=== PATIENT | female | born 1950 ===

== ENCOUNTER 2017-06-18 01:46 | Inpatient (IN) | payer MEDICARE, MEDICAID ==
[2017-06-18 02:34] LABS: BASO # 0.1 K/uL (0.0-0.2); EOS # 0.1 K/uL (0.0-0.7); HEMATOCRIT 26.3 % (34.0-47.0); LYMPH # 1.9 K/uL (1.0-4.3); MEAN CELL VOLUME 84.4 fL (81.0-99.0); MEAN CORPUSCULAR HEMOGLOBIN 26.9 pg (27.0-31.0); MEAN CORPUSCULAR HGB CONC 31.9 g/dL (33.0-37.0); MONO # 0.7 K/uL (0.0-0.8); RED CELL DISTRIBUTION WIDTH 16.2 % (11.5-14.5); WHITE BLOOD COUNT 9.6 K/uL (4.8-10.8)
[2017-06-18 02:36] LABS: BASO % 0.7 % (0.0-2.0); EOS % 0.8 % (0.0-4.0); LYMPH % 19.5 % (20.0-40.0); MEAN PLATELET VOLUME 9.4 fL (7.2-11.7); MONO % 7.4 % (0.0-10.0)
--- NOTE | 2017-06-18 02:37 | C.PDOC ---
History Of Present Illness Patient presents to the ED with complaints of sudden onset of shortness of breath beginning while watching TV prior to arrival. She is speaking in complete sentences and denies fever, chills, nausea, vomiting, chest pain, or palpitations. Time Seen by Provider: 06/18/17 02:19 Chief Complaint (Nursing): Shortness Of Breath History Per: Patient History/Exam Limitations: no limitations Onset/Duration Of Symptoms: Hrs Current Symptoms Are (Timing): Still Present Initiating Event: Other (sitting, watching television ) Quality: Dull Exacerbating Factor(s): Exertion, Laying Flat Current Respiratory Medications: None Severity: Moderate Pain Scale Rating Of: 4 Associated Symptoms: denies: Fever, Chills, Chest Pain, Bloody Cough, Productive Cough Reports Recently: Seen In ED, Treated By A Physician, Hospitalized Recent travel outside of the [place]: No Additional History Per: Family Past Medical History Reviewed: Historical Data, Nursing Documentation, Vital Signs Vital Signs: Last Vital Signs Temp 98.3 F 06/18/17 02:01 Pulse 84 06/18/17 04:00 Resp 24 06/18/17 04:00 BP 140/70 06/18/17 04:00 Pulse Ox 97 06/18/17 04:00 - Medical History PMH: Asthma, CHF, HTN Surgical History: Cholecystectomy, Coronary Stent (3) Family History: States: Unknown Family Hx - Social History Hx Alcohol Use: No Hx Substance Use: No - Immunization History Hx Tetanus Toxoid Vaccination: No Hx Influenza Vaccination: No Hx Pneumococcal Vaccination: No Review Of Systems Constitutional: Negative for: Fever, Chills Eyes: Negative for: Redness ENT: Negative for: Throat Pain Cardiovascular: Negative for: Chest Pain, Palpitations Respiratory: Positive for: Shortness of Breath. Negative for: Cough Gastrointestinal: Negative for: Nausea, Vomiting Genitourinary: Negative for: Dysuria Musculoskeletal: Negative for: Back Pain Skin: Negative for: Rash Neurological: Negative for: Weakness Psych: Positive for: Anxiety Physical Exam - Physical Exam Appears: Non-toxic, No Acute Distress Skin: Warm, Dry Head: Atraumatic Eye(s): bilateral: Normal Inspection Oral Mucosa: Moist Neck: Trachea Midline, Supple Chest: Symmetrical, No Deformity Cardiovascular: Rhythm Regular, Other (Patient is wearing a life vest ) Respiratory: Rales (at bilateral bases ), No Rhonchi, No Wheezing Gastrointestinal/Abdominal: Soft, No Tenderness, Distention, No Guarding, No Rebound, Other (abdomen is obese ) Back: No CVA Tenderness Extremity: No Tenderness, Pedal Edema (trace pedal edema ), No Calf Tenderness, Capillary Refill (good capillary refill, less than two seconds ) Extremity: Bilateral: Atraumatic, Normal Color And Temperature Pulses: Left Dorsalis Pedis: Normal, Right Dorsalis Pedis: Normal Neurological/Psych: Oriented x3, Normal Speech, Normal Cognition Gait: Steady ED Course And Treatment - Laboratory Results Result Diagrams: 06/18/17 02:30 06/18/17 02:30 ECG: Interpreted By Me, Viewed By Me ECG Rhythm: Sinus Rhythm (84), L BBB, Nonspecific Changes O2 Sat by Pulse Oximetry: 97 (RA ) Pulse Ox Interpretation: Normal - Radiology CXR: Interpreted by Me, Viewed By Me CXR Interpretation: Yes: Cardiomegaly, Other (chf, life vest on). No: Infiltrates, Fracture Progress Note: EKG, CXR, and labs were ordered. Disposition Discussed With Dr.: Son Sadler Comment: acceptd the pt on his service and took over the care at 4:43 AM Doctor Will See Patient In The: Hospital Counseled Patient/Family Regarding: Studies Performed, Diagnosis - Disposition Disposition: HOSPITALIZED Disposition Time: 04:44 Condition: GUARDED Forms: [facility] ([place]) - POA Present On Arrival: Poor Glycemic Control - Clinical Impression Clinical Impression: Dyspnea, CHF (congestive heart failure) - Scribe Statement The provider has reviewed the documentation as recorded by the Scribe Sulema Jones All medical record entries made by the Scribe were at my direction and personally dictated by me. I have reviewed the chart and agree that the record accurately reflects my personal performance of the history, physical exam, medical decision making, and the department course for this patient. I have also personally directed, reviewed, and agree with the discharge instructions and disposition. Decision To Admit - Pt Status Changed To: Hospital Disposition Of: Inpatient - Admit Certification Admit to Inpatient:: After my assessment, the patient will require hospitalization for at least two midnights. This is because of the severity of symptoms shown, intensity of services needed, and/or the medical risk in this patient being treated as an outpatient. - InPatient: Physician Admission Certification: I certify that this patient requires 2 or more midnights of care for the following reason:: After my assessment, the patient will require hospitalization for at least two midnights. This is because of the severity of symptoms shown, intensity of services needed, and/or the medical risk in this patient being treated as an outpatient. - . Bed Request Type: Telemetry Admitting Physician: Son Sadler Patient Diagnosis: Dyspnea, CHF (congestive heart failure)
[2017-06-18 02:43] LABS: CHLORIDE 106 mmol/L (98-107); POTASSIUM 4.2 mmol/L (3.6-5.2); SODIUM 140 mmol/L (132-148)
[2017-06-18 02:44] LABS: INR 1.3
[2017-06-18 02:45] LABS: BILIRUBIN,TOTAL 0.7 mg/dL (0.2-1.3); CARBON DIOXIDE 23 mmol/L (22-30); GFR AFRICAN-AMERICAN > 60
[2017-06-18 02:46] LABS: ALB/GLOB RATIO 0.9 (1.0-2.1); ALKALINE PHOSPHATASE 75 U/L (38-126); ALT/SGPT 30 U/L (9-52); AST/SGOT 26 U/L (14-36); BLOOD UREA NITROGEN 17 mg/dL (7-17); CALCIUM 9.3 mg/dl (8.6-10.4); GLUCOSE,RANDOM 131 mg/dL (65-105); TOTAL PROTEIN 8.1 g/dL (6.3-8.3)
[2017-06-18 02:56] LABS: ABG ALLEN TEST POS; DRAW SITE R RAD
[2017-06-18] MEDS: Albuterol-Ipratrop 3 mg / 0.5 (3 ml) UD INH SCH ×3 (09:00→19:59)
[2017-06-18] MEDS: (Novolog) Insulin Aspart, Recombinant 100 u/ml 10 ml vial SC SCH ×4 (09:31→21:40)
[2017-06-18] MEDS ORDERED: Pantoprazole 40 mg EC Tab PO SCH (10:00)
[2017-06-18 11:41] LABS: BASO # 0.1 K/uL (0.0-0.2); BASO % 0.7 % (0.0-2.0); EOS # 0.1 K/uL (0.0-0.7); EOS % 0.7 % (0.0-4.0); HEMATOCRIT 24.2 % (34.0-47.0); LYMPH # 2.3 K/uL (1.0-4.3); LYMPH % 24.9 % (20.0-40.0); MEAN CELL VOLUME 83.9 fL (81.0-99.0); MEAN CORPUSCULAR HEMOGLOBIN 27.2 pg (27.0-31.0); MEAN CORPUSCULAR HGB CONC 32.4 g/dL (33.0-37.0); MEAN PLATELET VOLUME 9.9 fL (7.2-11.7); MONO # 0.6 K/uL (0.0-0.8); RED CELL DISTRIBUTION WIDTH 16.4 % (11.5-14.5); WHITE BLOOD COUNT 9.1 K/uL (4.8-10.8)
[2017-06-18 11:49] LABS: CHLORIDE 104 mmol/L (98-107); POTASSIUM 3.7 mmol/L (3.6-5.2); SODIUM 141 mmol/L (132-148)
[2017-06-18 11:51] LABS: ALB/GLOB RATIO 0.8 (1.0-2.1); ALKALINE PHOSPHATASE 68 U/L (38-126); AST/SGOT 25 U/L (14-36); BILIRUBIN,TOTAL 0.8 mg/dL (0.2-1.3); BLOOD UREA NITROGEN 14 mg/dL (7-17); CARBON DIOXIDE 27 mmol/L (22-30); GFR AFRICAN-AMERICAN > 60; TOTAL PROTEIN 8.4 g/dL (6.3-8.3)
[2017-06-18 11:52] LABS: ALT/SGPT 31 U/L (9-52); CALCIUM 9.5 mg/dl (8.6-10.4); GLUCOSE,RANDOM 158 mg/dL (65-105)
--- NOTE | 2017-06-18 13:02 | RAD ---
PROCEDURE: CHEST RADIOGRAPH, 1 VIEW HISTORY: SOB COMPARISON: None available. FINDINGS: LUNGS: Moderate pulmonary vascular congestion. PLEURA: Suspicious for small right pleural effusion CARDIOVASCULAR: The cardiac silhouette is enlarged OSSEOUS STRUCTURES: No significant abnormalities. VISUALIZED UPPER ABDOMEN: Normal. OTHER FINDINGS: None. IMPRESSION: Suspicious for CHF and moderate pulmonary vascular congestion.
--- NOTE | 2017-06-18 14:02 | CP.PCM.CON ---
<Timothy Bernal - Last Filed: 06/18/17 14:19> History of Present Illness - History of Present Illness History of Present Illness: PGY4 Initial GI Consult Beryl Yañez is a 66F w/ hx of CAD s/p CABG? and stents, HTN, CHF, sick sinus? who presented to the ER with complaints of SOB. She states that the SOB is acute on chronic. She notes that she used 4 pillows to go to sleep and cannot lay supine. She denies any chest pain and abd pain. She states that she suddenly became SOB the day prior while watching TV which bought her to the ER for further eval. Pt states that she noticed black stool 3 weeks ago. She denies any melena, hematemesis, coffee-ground emesis. She denies any NSAID or anticoag use. She does note daily 8 mg of aspirin. Her hgb was found to be 8.4 which is a decline from her baseline of 12. She denies any abd pain. She is currently being treated for acute decompensated CHF with IV lasix and cardiology has been consulted. PMH: Asthma, CHF, HTN Surgical History: Cholecystectomy, Coronary Stent (3) Family History: States: Unknown Family Hx Endoscopy Hx: as per pt, EGD and colonoscopy was done 7 years ago and no sig findings ROS: 12 point ROS conducted, neg other than above Past Patient History - Infectious Disease Hx of Infectious Diseases: None - Past Medical History & Family History Past Medical History?: Yes - Past Social History Smoking Status: Former Smoker - CARDIAC Hx Congestive Heart Failure: Yes Hx Hypertension: Yes - PULMONARY Hx Asthma: Yes - ENDOCRINE/METABOLIC Hx Diabetes Mellitus Type 1: Yes - INTEGUMENTARY Hx Dermatological Problems: No - MUSCULOSKELETAL/RHEUMATOLOGICAL Hx Falls: No - PSYCHIATRIC Hx Substance Use: No - SURGICAL HISTORY Hx Cholecystectomy: Yes Hx Coronary Stent: Yes (3) - ANESTHESIA Hx Anesthesia: Yes Hx Anesthesia Reactions: No Meds Allergies/Adverse Reactions: Allergies Allergy/AdvReac Type Severity Reaction Status Date / Time No Known Allergies Allergy Verified 06/18/17 02:07 - Medications Medications: Current Medications Albuterol/Ipratropium (Duoneb 3 Mg/0.5 Mg (3 Ml) Ud) 3 ml INH RQ6 [facility] Last Admin: 06/18/17 09:00 Dose: 3 ml Furosemide (Lasix) 20 mg IVP Q12 [facility] Last Admin: 06/18/17 12:12 Dose: 20 mg Insulin Aspart (Novolog) 0 unit SC ACHS [facility] PRN Reason: Protocol Last Admin: 06/18/17 13:26 Dose: 1 unit Pantoprazole Sodium (Protonix Ec Tab) 40 mg PO DAILY [facility] Last Admin: 06/18/17 12:12 Dose: 40 mg Pneumococcal Polyvalent Vaccine (Pneumovax 23 Vaccine) 0.5 ml IM .ONCE ONE Stop: 06/20/17 14:01 Physical Exam - Constitutional Appears: Well, No Acute Distress - Head Exam Head Exam: ATRAUMATIC, NORMOCEPHALIC - Eye Exam Eye Exam: Normal appearance - ENT Exam ENT Exam: Mucous Membranes Moist - Neck Exam Neck exam: Positive for: Normal Inspection - Respiratory Exam Respiratory Exam: Rhonchi, NORMAL BREATHING PATTERN. absent: Prolonged Expiratory Phase, Rales, Respiratory Distress - Cardiovascular Exam Cardiovascular Exam: REGULAR RHYTHM, +S4, Systolic Murmur - GI/Abdominal Exam GI & Abdominal Exam: Normal Bowel Sounds, Soft. absent: Guarding, Pulsatile Mass, Rebound, Rigid - Neurological Exam Neurological exam: Alert, Oriented x3 - Psychiatric Exam Psychiatric exam: Normal Affect, Normal Mood - Skin Skin Exam: Dry, Intact, Normal Color, Warm Results - Vital Signs Recent Vital Signs: Last Vital Signs Temp 97.9 F 06/18/17 08:21 Pulse 77 06/18/17 08:21 Resp 20 06/18/17 08:21 BP 116/53 L 06/18/17 12:12 Pulse Ox 97 06/18/17 08:21 - Labs Result Diagrams: 06/18/17 11:27 06/18/17 11:27 Labs: Laboratory Results - last 24 hr 06/18/17 06/18/17 06/18/17 02:30 02:30 02:30 WBC 9.6 RBC 3.11 L Hgb 8.4 L Hct 26.3 L MCV 84.4 MCH 26.9 L MCHC 31.9 L RDW 16.2 H Plt Count 160 MPV 9.4 Neut % (Auto) 71.6 Lymph % (Auto) 19.5 L [place] % (Auto) 7.4 Eos % (Auto) 0.8 Baso % (Auto) 0.7 Neut # 6.9 Lymph # 1.9 [place] # 0.7 Eos # 0.1 Baso # 0.1 PT 14.4 H INR 1.3 APTT 31 Puncture Site pCO2 pO2 HCO3 ABG pH ABG Total CO2 ABG O2 Saturation ABG Base Excess Ernie Test ABG Potassium Sodium 140 Chloride 106 Glucose Lactate Liter Flow Potassium 4.2 Carbon Dioxide 23 Anion Gap 15 BUN 17 Creatinine 0.7 Est GFR ( Amer) > 60 Est GFR (Non-Af Amer) > 60 POC Glucose (mg/dL) Random Glucose 131 H Calcium 9.3 Iron Total Bilirubin 0.7 AST 26 ALT 30 Alkaline Phosphatase 75 Total Creatine Kinase CK-MB (Mass) Troponin I < 0.0120 Troponin I, Quant NT-Pro-B Natriuret Pep 1200 H Total Protein 8.1 Albumin 3.9 Globulin 4.2 H Albumin/Globulin Ratio 0.9 L Arterial Blood Potassium 06/18/17 06/18/17 06/18/17 02:30 06:30 11:27 WBC 9.1 RBC 2.88 L Hgb 7.8 L Hct 24.2 L MCV 83.9 MCH 27.2 MCHC 32.4 L RDW 16.4 H Plt Count 153 MPV 9.9 Neut % (Auto) 66.7 Lymph % (Auto) 24.9 [place] % (Auto) 7.0 Eos % (Auto) 0.7 Baso % (Auto) 0.7 Neut # 6.1 Lymph # 2.3 [place] # 0.6 Eos # 0.1 Baso # 0.1 PT INR APTT Puncture Site R rad pCO2 37 pO2 98 HCO3 25.3 ABG pH 7.43 ABG Total CO2 25.7 ABG O2 Saturation 98.8 H ABG Base Excess 0.5 Ernie Test Pos ABG Potassium 4.1 Sodium 140.0 Chloride 113.0 H Glucose 142 H Lactate 1.1 Liter Flow 2.0 Potassium Carbon Dioxide Anion Gap BUN Creatinine Est GFR ( Amer) Est GFR (Non-Af Amer) POC Glucose (mg/dL) 173 H Random Glucose Calcium Iron Total Bilirubin AST ALT Alkaline Phosphatase Total Creatine Kinase CK-MB (Mass) Troponin I Troponin I, Quant NT-Pro-B Natriuret Pep Total Protein Albumin Globulin Albumin/Globulin Ratio Arterial Blood Potassium 4.1 06/18/17 06/18/17 06/18/17 11:27 11:27 13:01 WBC RBC Hgb Hct MCV MCH MCHC RDW Plt Count MPV Neut % (Auto) Lymph % (Auto) [place] % (Auto) Eos % (Auto) Baso % (Auto) Neut # Lymph # [place] # Eos # Baso # PT INR APTT Puncture Site pCO2 pO2 HCO3 ABG pH ABG Total CO2 ABG O2 Saturation ABG Base Excess Ernie Test ABG Potassium Sodium 141 Chloride 104 Glucose Lactate Liter Flow Potassium 3.7 Carbon Dioxide 27 Anion Gap 14 BUN 14 Creatinine 0.5 L Est GFR ( Amer) > 60 Est GFR (Non-Af Amer) > 60 POC Glucose (mg/dL) 151 H Random Glucose 158 H Calcium 9.5 Iron 23 L Total Bilirubin 0.8 AST 25 ALT 31 Alkaline Phosphatase 68 Total Creatine Kinase 62 CK-MB (Mass) 0.71 Troponin I Troponin I, Quant < 0.0120 NT-Pro-B Natriuret Pep Total Protein 8.4 H Albumin 3.8 Globulin 4.6 H Albumin/Globulin Ratio 0.8 L Arterial Blood Potassium Assessment & Plan - Assessment and Plan (Free Text) Assessment: Beryl Yañez is a 66F w/ hx of CAD s/p stents, HL, CHF, and HTN who presents to the ER with SOB. She was found to be in acute decompensated hearst failure and anemia. 1. Normocytic anemia likely 2/2 GI bleed 2. Black Stools likely 2/2 GI bleed Plan: -start protonix 40mg BID -will do an EGD when medically cleared by cardiology -continue to monitor hgb -recommend transfusing PRBC to keep hgb > 8 2/2 CAD and CHF, but caution further fluid overload -will eventually need colonoscopy, as inpt vs oupt will be based on EGD findings -maintain 2 large IV bore lines -diuresis as per medical team and cardiology -keep NPO after midnight for now, and will decide upon EGD tomorrow -if pt decompensates recommend, recommend ICU eval -hold anticoag and antiplat for now -type and screen D/W Dr. rankin <Albert Rankin - Last Filed: 06/18/17 14:41> Meds - Medications Medications: Current Medications Albuterol/Ipratropium (Duoneb 3 Mg/0.5 Mg (3 Ml) Ud) 3 ml INH RQ6 [facility] Last Admin: 06/18/17 14:00 Dose: 3 ml Furosemide (Lasix) 20 mg IVP Q12 [facility] Last Admin: 06/18/17 12:12 Dose: 20 mg Insulin Aspart (Novolog) 0 unit SC ACHS [facility] PRN Reason: Protocol Last Admin: 06/18/17 13:26 Dose: 1 unit Pantoprazole Sodium (Protonix Inj) 40 mg IVP Q12H [facility] Pneumococcal Polyvalent Vaccine (Pneumovax 23 Vaccine) 0.5 ml IM .ONCE ONE Stop: 06/20/17 14:01 Results - Vital Signs Recent Vital Signs: Last Vital Signs Temp 97.9 F 06/18/17 08:21 Pulse 77 06/18/17 08:21 Resp 20 06/18/17 08:21 BP 116/53 L 06/18/17 12:12 Pulse Ox 97 06/18/17 08:21 - Labs Result Diagrams: 06/18/17 11:27 06/18/17 11:27 Labs: Laboratory Results - last 24 hr 06/18/17 06/18/17 06/18/17 02:30 02:30 02:30 WBC 9.6 RBC 3.11 L Hgb 8.4 L Hct 26.3 L MCV 84.4 MCH 26.9 L MCHC 31.9 L RDW 16.2 H Plt Count 160 MPV 9.4 Neut % (Auto) 71.6 Lymph % (Auto) 19.5 L [place] % (Auto) 7.4 Eos % (Auto) 0.8 Baso % (Auto) 0.7 Neut # 6.9 Lymph # 1.9 [place] # 0.7 Eos # 0.1 Baso # 0.1 PT 14.4 H INR 1.3 APTT 31 Puncture Site pCO2 pO2 HCO3 ABG pH ABG Total CO2 ABG O2 Saturation ABG Base Excess Ernie Test ABG Potassium Sodium 140 Chloride 106 Glucose Lactate Liter Flow Potassium 4.2 Carbon Dioxide 23 Anion Gap 15 BUN 17 Creatinine 0.7 Est GFR ( Amer) > 60 Est GFR (Non-Af Amer) > 60 POC Glucose (mg/dL) Random Glucose 131 H Calcium 9.3 Iron Total Bilirubin 0.7 AST 26 ALT 30 Alkaline Phosphatase 75 Total Creatine Kinase CK-MB (Mass) Troponin I < 0.0120 Troponin I, Quant NT-Pro-B Natriuret Pep 1200 H Total Protein 8.1 Albumin 3.9 Globulin 4.2 H Albumin/Globulin Ratio 0.9 L Arterial Blood Potassium 06/18/17 06/18/17 06/18/17 02:30 06:30 11:27 WBC 9.1 RBC 2.88 L Hgb 7.8 L Hct 24.2 L MCV 83.9 MCH 27.2 MCHC 32.4 L RDW 16.4 H Plt Count 153 MPV 9.9 Neut % (Auto) 66.7 Lymph % (Auto) 24.9 [place] % (Auto) 7.0 Eos % (Auto) 0.7 Baso % (Auto) 0.7 Neut # 6.1 Lymph # 2.3 [place] # 0.6 Eos # 0.1 Baso # 0.1 PT INR APTT Puncture Site R rad pCO2 37 pO2 98 HCO3 25.3 ABG pH 7.43 ABG Total CO2 25.7 ABG O2 Saturation 98.8 H ABG Base Excess 0.5 Ernie Test Pos ABG Potassium 4.1 Sodium 140.0 Chloride 113.0 H Glucose 142 H Lactate 1.1 Liter Flow 2.0 Potassium Carbon Dioxide Anion Gap BUN Creatinine Est GFR ( Amer) Est GFR (Non-Af Amer) POC Glucose (mg/dL) 173 H Random Glucose Calcium Iron Total Bilirubin AST ALT Alkaline Phosphatase Total Creatine Kinase CK-MB (Mass) Troponin I Troponin I, Quant NT-Pro-B Natriuret Pep Total Protein Albumin Globulin Albumin/Globulin Ratio Arterial Blood Potassium 4.1 06/18/17 06/18/17 06/18/17 11:27 11:27 13:01 WBC RBC Hgb Hct MCV MCH MCHC RDW Plt Count MPV Neut % (Auto) Lymph % (Auto) [place] % (Auto) Eos % (Auto) Baso % (Auto) Neut # Lymph # [place] # Eos # Baso # PT INR APTT Puncture Site pCO2 pO2 HCO3 ABG pH ABG Total CO2 ABG O2 Saturation ABG Base Excess Ernie Test ABG Potassium Sodium 141 Chloride 104 Glucose Lactate Liter Flow Potassium 3.7 Carbon Dioxide 27 Anion Gap 14 BUN 14 Creatinine 0.5 L Est GFR ( Amer) > 60 Est GFR (Non-Af Amer) > 60 POC Glucose (mg/dL) 151 H Random Glucose 158 H Calcium 9.5 Iron 23 L Total Bilirubin 0.8 AST 25 ALT 31 Alkaline Phosphatase 68 Total Creatine Kinase 62 CK-MB (Mass) 0.71 Troponin I Troponin I, Quant < 0.0120 NT-Pro-B Natriuret Pep Total Protein 8.4 H Albumin 3.8 Globulin 4.6 H Albumin/Globulin Ratio 0.8 L Arterial Blood Potassium Attending/Attestation - Attestation I have personally seen and examined this patient.: Yes I have fully participated in the care of the patient.: Yes I have reviewed all pertinent clinical information: Yes Notes (Text): 06/18/17 14:39 66 year old female with h/o CAD s/p CABG, pacemaker, HTN, HLD admited with CHF and melena. 1. Melena 2. Anemia Plan: -recommend protonix 40 mg IV BID -clear liquids today / NPO after MN -tentative plan for EGD tomorrow pending cardiac clearance / optimization -monitor CBC and transfuse to goal ~9 -will follow
[2017-06-18] MEDS: Rosuvastatin Calcium 2.5 mg Tab PO SCH (23:10)
[2017-06-19] MEDS: Albuterol-Ipratrop 3 mg / 0.5 (3 ml) UD INH SCH ×4 (01:42→19:36)
[2017-06-19] MEDS: (Novolog) Insulin Aspart, Recombinant 100 u/ml 10 ml vial SC SCH ×4 (07:30→22:22)
--- NOTE | 2017-06-19 09:58 | CP.PCM.CON ---
History of Present Illness - History of Present Illness History of Present Illness: The pt is a 66 year old woman with CAD, s/p cabg 2011, s/p three stents before cabg. PT HAD chf IN 2004, and CHF improved after Bi V pacing. pt had VT years ago. Pt has had no angina, no chf episodes. 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 Although LV EF has gotten better, Because of h/o VT, pt was advised to wear a life vest. Now pt noticed some dark stools a week or two ago, but did not alert her PMD. Pt takes asa, no other anti plt agent or coumadin,. She noticed increasing SOB, orthopnea and came to ER. CXR showed possible chf, BNP was mildly elevated. Pt feels much better after lasix. No chest pain and ECG demonstrates NSR, RBBB. Normal TNI. Review of Systems - Review of Systems All systems: reviewed and no additional remarkable complaints except (as above) Past Patient History - Infectious Disease Hx of Infectious Diseases: None - Past Medical History & Family History Past Medical History?: Yes - Past Social History Smoking Status: Former Smoker - CARDIAC Hx Congestive Heart Failure: Yes Hx Hypertension: Yes - PULMONARY Hx Asthma: Yes - ENDOCRINE/METABOLIC Hx Diabetes Mellitus Type 1: Yes - INTEGUMENTARY Hx Dermatological Problems: No - MUSCULOSKELETAL/RHEUMATOLOGICAL Hx Falls: No - PSYCHIATRIC Hx Substance Use: No - SURGICAL HISTORY Hx Cholecystectomy: Yes Hx Coronary Stent: Yes (3) - ANESTHESIA Hx Anesthesia: Yes Hx Anesthesia Reactions: No Meds Allergies/Adverse Reactions: Allergies Allergy/AdvReac Type Severity Reaction Status Date / Time No Known Allergies Allergy Verified 06/18/17 02:07 - Medications Medications: Current Medications Albuterol/Ipratropium (Duoneb 3 Mg/0.5 Mg (3 Ml) Ud) 3 ml INH RQ6 [facility] Last Admin: 06/19/17 08:35 Dose: 3 ml Alprazolam (Xanax) 0.25 mg PO DAILY PRN PRN Reason: Anxiety Stop: 06/26/17 10:01 Amlodipine Besylate (Norvasc) 5 mg PO DAILY [facility] Escitalopram Oxalate (Lexapro) 10 mg PO DAILY [facility] Furosemide (Lasix) 20 mg IVP Q12 [facility] Last Admin: 06/18/17 21:38 Dose: 20 mg Glimepiride (Amaryl) 4 mg PO ACBD [facility] Insulin Aspart (Novolog) 0 unit SC ACHS [facility] PRN Reason: Protocol Last Admin: 06/18/17 21:40 Dose: Not Given Losartan Potassium (Cozaar) 100 mg PO DAILY [facility] Montelukast Sodium (Singulair) 10 mg PO HS [facility] Last Admin: 06/18/17 23:10 Dose: 10 mg Nebivolol (Bystolic) 5 mg PO DAILY [facility] Pantoprazole Sodium (Protonix Inj) 40 mg IVP Q12H [facility] Last Admin: 06/18/17 20:36 Dose: 40 mg Pneumococcal Polyvalent Vaccine (Pneumovax 23 Vaccine) 0.5 ml IM .ONCE ONE Stop: 06/20/17 14:01 Rosuvastatin Calcium (Crestor) 2.5 mg PO [facility] Last Admin: 06/18/17 23:10 Dose: 2.5 mg Physical Exam - Constitutional Appears: No Acute Distress - Head Exam Head Exam: ATRAUMATIC - Eye Exam Eye Exam: EOMI - ENT Exam ENT Exam: Mucous Membranes Moist - Neck Exam Neck exam: Positive for: Full Rom - Respiratory Exam Respiratory Exam: Clear to Auscultation Bilateral - Cardiovascular Exam Cardiovascular Exam: REGULAR RHYTHM - GI/Abdominal Exam GI & Abdominal Exam: Normal Bowel Sounds - Exam External exam: NORMAL EXTERNAL EXAM - Extremities Exam Extremities exam: Positive for: normal inspection - Back Exam Back exam: NORMAL INSPECTION - Neurological Exam Neurological exam: Alert, CN II-XII Intact, Oriented x3 - Psychiatric Exam Psychiatric exam: Normal Affect, Normal Mood Results - Vital Signs Recent Vital Signs: Last Vital Signs Temp 98.3 F 06/19/17 08:00 Pulse 76 06/19/17 08:00 Resp 20 06/19/17 08:00 BP 117/68 06/19/17 08:00 Pulse Ox 95 06/19/17 08:00 - Labs Result Diagrams: 06/18/17 11:27 06/18/17 11:27 Labs: Laboratory Results - last 24 hr 06/18/17 06/18/17 06/18/17 11:27 11:27 11:27 WBC 9.1 RBC 2.88 L Hgb 7.8 L Hct 24.2 L MCV 83.9 MCH 27.2 MCHC 32.4 L RDW 16.4 H Plt Count 153 MPV 9.9 Neut % (Auto) 66.7 Lymph % (Auto) 24.9 [place] % (Auto) 7.0 Eos % (Auto) 0.7 Baso % (Auto) 0.7 Neut # 6.1 Lymph # 2.3 [place] # 0.6 Eos # 0.1 Baso # 0.1 Sodium 141 Potassium 3.7 Chloride 104 Carbon Dioxide 27 Anion Gap 14 BUN 14 Creatinine 0.5 L Est GFR ( Amer) > 60 Est GFR (Non-Af Amer) > 60 POC Glucose (mg/dL) Random Glucose 158 H Calcium 9.5 Iron 23 L Total Bilirubin 0.8 AST 25 ALT 31 Alkaline Phosphatase 68 Total Creatine Kinase 62 CK-MB (Mass) 0.71 Troponin I, Quant < 0.0120 Total Protein 8.4 H Albumin 3.8 Globulin 4.6 H Albumin/Globulin Ratio 0.8 L Stool Occult Blood 06/18/17 06/18/17 06/18/17 13:01 16:38 16:47 WBC RBC Hgb Hct MCV MCH MCHC RDW Plt Count MPV Neut % (Auto) Lymph % (Auto) [place] % (Auto) Eos % (Auto) Baso % (Auto) Neut # Lymph # [place] # Eos # Baso # Sodium Potassium Chloride Carbon Dioxide Anion Gap BUN Creatinine Est GFR ( Amer) Est GFR (Non-Af Amer) POC Glucose (mg/dL) 151 H 119 H Random Glucose Calcium Iron Total Bilirubin AST ALT Alkaline Phosphatase Total Creatine Kinase 63 CK-MB (Mass) 0.71 Troponin I, Quant < 0.0120 Total Protein Albumin Globulin Albumin/Globulin Ratio Stool Occult Blood 06/18/17 06/18/17 06/19/17 21:06 23:22 06:52 WBC RBC Hgb Hct MCV MCH MCHC RDW Plt Count MPV Neut % (Auto) Lymph % (Auto) [place] % (Auto) Eos % (Auto) Baso % (Auto) Neut # Lymph # [place] # Eos # Baso # Sodium Potassium Chloride Carbon Dioxide Anion Gap BUN Creatinine Est GFR ( Amer) Est GFR (Non-Af Amer) POC Glucose (mg/dL) 204 H 171 H Random Glucose Calcium Iron Total Bilirubin AST ALT Alkaline Phosphatase Total Creatine Kinase CK-MB (Mass) Troponin I, Quant Total Protein Albumin Globulin Albumin/Globulin Ratio Stool Occult Blood Positive H - EKG Data EKG Interpreted by: Myself EKG shows normal: Sinus rhythm (RBBB) Assessment & Plan - Assessment and Plan (Free Text) Assessment: 1. CAD: is stable: no evidence of ACS, a nuclear stress about two years ago did not demonstrate any significant ischemia 2. CHF:Last echo demonstrated improved LV EF, chf likely a combo of diastolic dysfunctio, acute on chronic, exacerbated by anemia. Will order echo to reasess LV EF. Pt is on bystolic fort HTN, and could not tolerate other beta blockers in the past, that is why she is not on other approved beta blockers for chf. EF has been improved and stable with bystolic. 3. Pt is cleared for EGD, just caution IV fluids as she has gotten better with lasix, and indeed did have chf., now with clear lungs.
[2017-06-19] MEDS ORDERED: Propofol 10 mg/ml Inj (20 ML) ONE (10:36)
[2017-06-19] MEDS ORDERED: Lidocaine 4% (Laryng-O-Jet) Kit MM ONE (10:37)
[2017-06-19] MEDS: Lactated Ringer's 500 ML IV SCH ×2 (12:00→17:30)
[2017-06-19 14:02] LABS: BASO # 0.1 K/uL (0.0-0.2); BASO % 1.2 % (0.0-2.0); EOS # 0.1 K/uL (0.0-0.7); EOS % 1.1 % (0.0-4.0); HEMATOCRIT 25.5 % (34.0-47.0); LYMPH % 22.5 % (20.0-40.0); MEAN CELL VOLUME 83.6 fL (81.0-99.0); MEAN CORPUSCULAR HEMOGLOBIN 26.9 pg (27.0-31.0); MEAN CORPUSCULAR HGB CONC 32.2 g/dL (33.0-37.0); MEAN PLATELET VOLUME 9.2 fL (7.2-11.7); MONO # 0.6 K/uL (0.0-0.8); RED CELL DISTRIBUTION WIDTH 16.6 % (11.5-14.5); WHITE BLOOD COUNT 8.8 K/uL (4.8-10.8)
[2017-06-19 14:19] LABS: IRON 24 ug/dL (37-170)
--- NOTE | 2017-06-19 16:06 | HP ---
HISTORY OF PRESENT ILLNESS: This is a 66 years old female with history of multiple medical problems including congestive heart failure with dilated cardiomyopathy, currently on external defibrillator. The patient was scheduled to have defibrillator changed due to malfunction. The patient has been complaining of black tarry stool for the last 2 weeks. The patient denies to have any NSAID medications. The patient also stopped aspirin for the last 3 or 4 days prior to this admission. The patient did not have any similar episodes. The patient was supposed to see a compounding scaler as an outpatient. The patient started to develop dizziness and generalized fatigue and weakness associated with shortness of breath, which prompted the patient to come to emergency room for evaluation. The patient was evaluated and subsequently admitted for symptomatic anemia and exacerbation of congestive heart failure. REVIEW OF SYSTEMS: Other review of systems is negative. ALLERGIES: NO KNOWN ALLERGY. HOME MEDICATIONS: Include metformin XR 850 mg daily, amlodipine 5 mg daily, Pravachol 20 mg daily, Bystolic 1 tablet 5 mg daily, Singulair 5 mg daily, losartan 50 mg daily, Tradjenta 5 mg daily, glimepiride 4 mg twice a day, Lexapro 20 mg daily and Xanax 0.25 mg daily as needed. SOCIAL HISTORY: No history of smoking, EtOH, or substance abuse. FAMILY HISTORY: Not contributory. PHYSICAL EXAMINATION: GENERAL: The patient is in bed, not in any cardiopulmonary distress. VITAL SIGNS: Blood pressure 116/53, temperature 98.3, respiratory rate 20, and pulse 74. HEENT: Pupils equal, reactive to light. Normal-appearing mucosa of the conjunctivae, oropharyngeal and nasal membrane mucosa. NECK: Supple. No JVD. No carotid bruit. No lymph node. No thyromegaly. CHEST AND LUNGS: Bilateral symmetrical expansion. Good air exchange. No rales, no rhonchi. CARDIOPULMONARY: Cardiovascular system, PMI not localized, S1, S2, no additional sounds. ABDOMEN: Normoactive bowel sounds. No tenderness. No organomegaly. No masses. EXTREMITIES: No cyanosis, no clubbing, no edema. CENTRAL NERVOUS SYSTEM: Alert, awake, oriented x3. No neurological deficit could be appreciated. ASSESSMENT: 1. Congestive heart failure exacerbation. 2. Symptomatic anemia. 3. Hypertension. 4. Type 2 diabetes mellitus. 5. Morbid obesity. PLAN: Continue Lasix IV q. 12 hours as well as resume patient's home medications and follow up with Cardiology as well as with GI. [facility] MD Doroteo
[2017-06-19] MEDS: Ferric Sodium Gluconat Complex 62.5 mg/5 ml Vial IVPB SCH (16:45)
--- NOTE | 2017-06-19 19:21 | CARD ---
APPROVED REPORT EXAM: Two-dimensional and M-mode echocardiogram with Doppler and color Doppler. INDICATION Dyspnea Congestive Heart Failure M-Mode DIMENSIONS RVDd2.10 (2.1-3.2cm)Left Atrium (MM)4.84 (2.5-4.0cm) IVSd1.07 (0.7-1.1cm)Aortic Root3.12 (2.2-3.7cm) LVDd5.28 (4.0-5.6cm)Aortic Cusp Exc.1.91 (1.5-2.0cm) PWd1.11 (0.7-1.1cm)FS (%) 16 % LVDs4.41 (2.0-3.8cm)LVEF (%)34 (>50%) Aortic Valve AoV Peak Uqwkilvj097.9cm/Javier Peak GR.6mmHg Mitral Valve MV E Qljwzvxz845.8cm/sMV A Pxwzyrqi96.1cm/sE/A ratio1.4 TDI E/Lateral E'0.0E/Medial E'0.0 Tricuspid Valve TR Peak Vbwyxwdy194zh/sTR Peak Gr.19tzMuTPTP11epKs LEFT VENTRICLE The Left Ventricle is moderately dilated. There is normal left ventricular wall thickness. Left ventricle systolic function is moderately impaired. The Ejection Fraction is - 35%. Paradoxic septum motion. Transmitral Doppler flow pattern is Grade II-pseudonormal filling dynamics. RIGHT VENTRICLE The right ventricle is mildly dilated. The right ventricular systolic function is normal. ATRIA The left atrium is moderately dilated. The right atrium is moderately dilated. AORTIC VALVE The aortic valve is normal in structure. No aortic regurgitation is present. MITRAL VALVE The mitral valve is normal in structure. Mild to moderate mitral regurgitation. TRICUSPID VALVE The tricuspid valve is normal in structure. There is moderate tricuspid regurgitation. Right ventricular systolic pressure is estimated at 48 mmHg. There is moderate pulmonary hypertension. PULMONIC VALVE There is trace to mild pulmonic valvular regurgitation. GREAT VESSELS The aortic root displays mild sclerocalcific changes. The IVC was not well visualized. PERICARDIAL EFFUSION There is no pericardial effusion. <Conclusion> Left ventricle systolic function is moderately impaired. Paradoxic septum motion. The Ejection Fraction is - 35%. Transmitral Doppler flow pattern is Grade II-pseudonormal filling dynamics. The right ventricular systolic function is normal. Mild to moderate mitral regurgitation. Right ventricular systolic pressure is estimated at 48 mmHg compatible with moderate pulmonary hypertension. There is no pericardial effusion.
[2017-06-19] MEDS: Rosuvastatin Calcium 2.5 mg Tab PO SCH (22:22)
[2017-06-20] MEDS: Lactated Ringer's 500 ML IV SCH ×2 (00:53→23:38)
[2017-06-20] MEDS: Albuterol-Ipratrop 3 mg / 0.5 (3 ml) UD INH SCH ×3 (03:07→15:06)
--- NOTE | 2017-06-20 07:22 | CP.PCM.PN ---
<Fauzia Marks - Last Filed: 06/20/17 09:02> Subjective - Date & Time of Evaluation Date of Evaluation: 06/20/17 Time of Evaluation: 06:45 - Subjective Subjective: GI Fellow PGY4 Progress Note Pt seen and evaluated at bedside, pt reports feeling a little better today with improved breathing and reports two pound weight loss after diuresis. Pt says she is now having brown stool and no further melena/black stools. Pt tolerating clear liquids today. ROS: A 12pt ROS was obtained and was negative except as above. Objective - Vital Signs/Intake and Output Vital Signs (last 24 hours): Temp Pulse Resp BP Pulse Ox 98.1 F 79 20 143/65 95 06/19/17 23:10 06/19/17 23:10 06/19/17 23:10 06/19/17 23:10 06/19/17 23:10 - Medications Medications: Current Medications Albuterol/Ipratropium (Duoneb 3 Mg/0.5 Mg (3 Ml) Ud) 3 ml INH RQ6 [facility] Last Admin: 06/20/17 03:07 Dose: Not Given Alprazolam (Xanax) 0.25 mg PO DAILY PRN PRN Reason: Anxiety Stop: 06/26/17 10:01 Amlodipine Besylate (Norvasc) 5 mg PO DAILY [facility] Last Admin: 06/19/17 12:01 Dose: 5 mg Escitalopram Oxalate (Lexapro) 10 mg PO DAILY [facility] Last Admin: 06/19/17 12:01 Dose: 10 mg Ferric Sodium Gluconate Complex (Ferrlecit) 125 mg IVPB DAILY [facility] Stop: 06/22/17 15:46 Last Admin: 06/19/17 16:45 Dose: 125 mg Furosemide (Lasix) 20 mg IVP Q12 [facility] Last Admin: 06/19/17 22:22 Dose: 20 mg Glimepiride (Amaryl) 4 mg PO ACBD [facility] Last Admin: 06/19/17 17:58 Dose: 4 mg Lactated Ringer's (Lactated Ringer's 500ml) 500 mls @ 75 mls/hr IV .Q6H40M [facility] Last Admin: 06/20/17 00:53 Dose: Not Given Insulin Aspart (Novolog) 0 unit SC ACHS [facility] PRN Reason: Protocol Last Admin: 06/19/17 22:22 Dose: Not Given Losartan Potassium (Cozaar) 100 mg PO DAILY [facility] Last Admin: 06/19/17 12:01 Dose: 100 mg Montelukast Sodium (Singulair) 10 mg PO [facility] Last Admin: 06/19/17 22:22 Dose: 10 mg Nebivolol (Bystolic) 5 mg PO DAILY [facility] Pantoprazole Sodium (Protonix Inj) 40 mg IVP Q12H [facility] Last Admin: 06/19/17 22:22 Dose: 40 mg Pneumococcal Polyvalent Vaccine (Pneumovax 23 Vaccine) 0.5 ml IM .ONCE ONE Stop: 06/20/17 14:01 Rosuvastatin Calcium (Crestor) 2.5 mg PO [facility] Last Admin: 06/19/17 22:22 Dose: 2.5 mg - Labs Labs: 06/19/17 13:56 06/18/17 11:27 PT 14.4 SECONDS (9.7-12.2) H 06/18/17 02:30 INR 1.3 06/18/17 02:30 APTT 31 SECONDS (21-34) 06/18/17 02:30 - Constitutional Appears: No Acute Distress, Chronically Ill - Head Exam Head Exam: ATRAUMATIC, NORMAL INSPECTION, NORMOCEPHALIC - Eye Exam Eye Exam: EOMI, Normal appearance, PERRL Pupil Exam: PERRL - ENT Exam ENT Exam: Mucous Membranes Moist, Normal Exam - Neck Exam Neck Exam: Full ROM - Respiratory Exam Respiratory Exam: Decreased Breath Sounds, NORMAL BREATHING PATTERN - Cardiovascular Exam Cardiovascular Exam: RRR, +S1, +S2 - GI/Abdominal Exam GI & Abdominal Exam: Soft, Normal Bowel Sounds. absent: Distended, Guarding, Rigid, Tenderness, Organomegaly - Rectal Exam Rectal Exam: Deferred - Extremities Exam Extremities Exam: Full ROM, Normal Inspection - Back Exam Back Exam: NORMAL INSPECTION - Neurological Exam Neurological Exam: Alert, Awake, Oriented x3 - Psychiatric Exam Psychiatric exam: Normal Affect, Normal Mood - Skin Skin Exam: Dry, Intact, Pallor, Warm Assessment and Plan - Assessment and Plan (Free Text) Assessment: Beryl Yañez is a 66F w/ hx of CAD s/p stents, HL, CHF, and HTN who presents to the ER with SOB. She was found to be in acute decompensated heart failure and anemia. 1. Normocytic Anemia 2. Melena-resolved 3. AECHF EF 35% Plan: -Continue supportive care with Protonix 40mg BID -No further Melena since yesterday, reports brown stool, Hgb stable 8.2 -Continue to monitor Hgb -Recommend transfusing PRBC to keep Hgb> 8 2/2 CAD and CHF, but caution further fluid overload -Continue clear liquid diet today -EGD negative for any source of bleed, gastritis s/p biopsy to r/o H.pylori, pathology pending -Will eventually need colonoscopy,will discuss with Dr. Davis about colonoscopy tomorrow as inpt since EGD negative -Diuresis as per medical team and cardiology with 2decho EF 35% -Hold antiplatelet therapy for now -Will continue to follow pt closely <Moo Davis - Last Filed: 06/20/17 10:34> Objective - Vital Signs/Intake and Output Vital Signs (last 24 hours): Temp Pulse Resp BP Pulse Ox 98.4 F 81 20 118/65 97 06/20/17 09:01 06/20/17 09:01 06/20/17 09:01 06/20/17 09:17 06/20/17 09:01 - Medications Medications: Current Medications Albuterol/Ipratropium (Duoneb 3 Mg/0.5 Mg (3 Ml) Ud) 3 ml INH RQ6 [facility] Last Admin: 06/20/17 03:07 Dose: Not Given Alprazolam (Xanax) 0.25 mg PO DAILY PRN PRN Reason: Anxiety Stop: 06/26/17 10:01 Amlodipine Besylate (Norvasc) 5 mg PO DAILY [facility] Last Admin: 06/19/17 12:01 Dose: 5 mg Bisacodyl (Dulcolax) 10 mg PO ONCE ONE Stop: 06/20/17 20:01 Escitalopram Oxalate (Lexapro) 10 mg PO DAILY [facility] Last Admin: 06/20/17 09:17 Dose: 10 mg Ferric Sodium Gluconate Complex (Ferrlecit) 125 mg IVPB DAILY [facility] Stop: 06/22/17 15:46 Last Admin: 06/20/17 09:17 Dose: 125 mg Furosemide (Lasix) 20 mg IVP Q12 [facility] Last Admin: 06/20/17 09:17 Dose: 20 mg Glimepiride (Amaryl) 4 mg PO ACBD [facility] Last Admin: 06/20/17 09:18 Dose: 4 mg Lactated Ringer's (Lactated Ringer's 500ml) 500 mls @ 75 mls/hr IV .Q6H40M [facility] Last Admin: 06/20/17 00:53 Dose: Not Given Insulin Aspart (Novolog) 0 unit SC ACHS [facility] PRN Reason: Protocol Last Admin: 06/20/17 07:51 Dose: Not Given Losartan Potassium (Cozaar) 100 mg PO DAILY [facility] Last Admin: 06/20/17 09:18 Dose: 100 mg Montelukast Sodium (Singulair) 10 mg PO HS [facility] Last Admin: 06/19/17 22:22 Dose: 10 mg Nebivolol (Bystolic) 5 mg PO DAILY [facility] Pantoprazole Sodium (Protonix Inj) 40 mg IVP Q12H [facility] Last Admin: 06/20/17 09:17 Dose: 40 mg Pneumococcal Polyvalent Vaccine (Pneumovax 23 Vaccine) 0.5 ml IM .ONCE ONE Stop: 06/20/17 14:01 Polyethylene Glycol/Electrolytes (Golytely) 4,000 ml PO ONCE ONE Stop: 06/20/17 13:01 Rosuvastatin Calcium (Crestor) 2.5 mg PO [facility] Last Admin: 06/19/17 22:22 Dose: 2.5 mg - Labs Labs: 06/20/17 07:23 06/20/17 07:23 PT 14.4 SECONDS (9.7-12.2) H 06/18/17 02:30 INR 1.3 06/18/17 02:30 APTT 31 SECONDS (21-34) 06/18/17 02:30 Attending/Attestation - Attestation I have personally seen and examined this patient.: Yes I have fully participated in the care of the patient.: Yes I have reviewed all pertinent clinical information, including history, physical exam and plan: Yes Notes (Text): 06/20/17 10:30 I have seen and examined patient with GI fellow. No acute events overnight, she is seen sitting at bedside appears comfortable. She complains of ongoing fatigue and weakness but denies abdominal pain, nausea, vomiting. She had a small brown colored bowel movement yesterday. Tolerating PO liquids without difficulty. CAD s/p stent Dyspnea, CHF exacerbation - resolved Anemia, stool occult blood + s/p EGD yesterday showing gastritis - H/H stable without overt bleeding noted, continue to monitor - Awaiting biopsies from EGD yesterday - Clear liquid diet as tolerated - Follow up cardiology recommendations - Plan for colonoscopy tomorrow to complete anemia workup. Golytely bowel preparation today, NPO after midnight. Case discussed with Dr. Sadler.
[2017-06-20 07:40] LABS: HEMATOCRIT 25.3 % (34.0-47.0); MEAN CELL VOLUME 83.8 fL (81.0-99.0); MEAN CORPUSCULAR HEMOGLOBIN 27.2 pg (27.0-31.0); MEAN CORPUSCULAR HGB CONC 32.4 g/dL (33.0-37.0); MEAN PLATELET VOLUME 9.8 fL (7.2-11.7); RED CELL DISTRIBUTION WIDTH 16.3 % (11.5-14.5); WHITE BLOOD COUNT 8.6 K/uL (4.8-10.8)
[2017-06-20 07:51] LABS: CHLORIDE 100 mmol/L (98-107); SODIUM 138 mmol/L (132-148)
[2017-06-20] MEDS: (Novolog) Insulin Aspart, Recombinant 100 u/ml 10 ml vial SC SCH ×4 (07:51→23:39)
[2017-06-20 07:52] LABS: POTASSIUM 3.6 mmol/L (3.6-5.2)
[2017-06-20 07:54] LABS: CARBON DIOXIDE 27 mmol/L (22-30); GFR AFRICAN-AMERICAN > 60
[2017-06-20 07:55] LABS: BLOOD UREA NITROGEN 12 mg/dL (7-17); CALCIUM 9.4 mg/dl (8.6-10.4); GLUCOSE,RANDOM 120 mg/dL (65-105)
[2017-06-20] MEDS: Ferric Sodium Gluconat Complex 62.5 mg/5 ml Vial IVPB SCH (09:17)
--- NOTE | 2017-06-20 09:39 | PN ---
DATE: 06/19/2017 SUBJECTIVE: She has symptoms of generalized weakness and fatigue. PHYSICAL EXAMINATION VITAL SIGNS: Blood pressure is 138/84, temperature 96.9, respiratory rate 20, and pulse 77. HEENT: Pupils equal and reactive to light. Normal-appearing mucosa of the conjunctivae, oropharyngeal and nasal membrane mucosa. NECK: Supple. No JVD. No carotid bruit. No lymph node. No thyromegaly. CHEST AND LUNGS: Bilateral symmetrical expansion. Good air exchange. No rales. No rhonchi. CARDIOVASCULAR SYSTEM: PMI not localized. S1, S2. No additional sounds. ABDOMEN: Normoactive bowel sounds. No tenderness. No organomegaly. No masses. EXTREMITIES: No cyanosis. No clubbing. No edema. CENTRAL NERVOUS SYSTEM: Alert, awake, oriented x3. No neurological deficit could be appreciated. LABORATORY DATA: Blood work showed hemoglobin of 8.2 and hematocrit 25.5. Iron saturation is 5 and TIBC is elevated. The stool occult blood is positive. ASSESSMENT AND PLAN: Iron deficiency anemia with possible gastrointestinal bleeding. Esophagogastroduodenoscopy has already done and the patient is for further gastrointestinal workup. 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 Continue current medications. Son Sadler MD
[2017-06-20] MEDS ORDERED: Peg-Electrolyte Oral Soln 4L (Golytely) PO ONE (13:00)
[2017-06-20] MEDS ORDERED: Pneumococcal 23-Valent Vaccine IM ONE (14:00)
--- NOTE | 2017-06-20 14:42 | CP.PCM.PN ---
Subjective - Date & Time of Evaluation Date of Evaluation: 06/20/17 Time of Evaluation: 14:37 - Subjective Subjective: Pt is tired, cannot walk far. To recieve a transfusion today. EGD negative, so colonoscopy for tomorrow. Objective - Vital Signs/Intake and Output Vital Signs (last 24 hours): Temp Pulse Resp BP Pulse Ox 98 F 81 20 120/59 L 98 06/20/17 12:46 06/20/17 12:46 06/20/17 12:46 06/20/17 12:46 06/20/17 12:46 - Medications Medications: Current Medications Albuterol/Ipratropium (Duoneb 3 Mg/0.5 Mg (3 Ml) Ud) 3 ml INH RQ6 [facility] Last Admin: 06/20/17 03:07 Dose: Not Given Alprazolam (Xanax) 0.25 mg PO DAILY PRN PRN Reason: Anxiety Stop: 06/26/17 10:01 Amlodipine Besylate (Norvasc) 5 mg PO DAILY [facility] Last Admin: 06/20/17 12:47 Dose: 5 mg Bisacodyl (Dulcolax) 10 mg PO ONCE ONE Stop: 06/20/17 20:01 Escitalopram Oxalate (Lexapro) 10 mg PO DAILY [facility] Last Admin: 06/20/17 09:17 Dose: 10 mg Ferric Sodium Gluconate Complex (Ferrlecit) 125 mg IVPB DAILY [facility] Stop: 06/22/17 15:46 Last Admin: 06/20/17 09:17 Dose: 125 mg Furosemide (Lasix) 20 mg IVP Q12 [facility] Last Admin: 06/20/17 09:17 Dose: 20 mg Glimepiride (Amaryl) 4 mg PO ACBD [facility] Last Admin: 06/20/17 09:18 Dose: 4 mg Lactated Ringer's (Lactated Ringer's 500ml) 500 mls @ 75 mls/hr IV .Q6H40M [facility] Last Admin: 06/20/17 00:53 Dose: Not Given Insulin Aspart (Novolog) 0 unit SC ACHS [facility] PRN Reason: Protocol Last Admin: 06/20/17 12:43 Dose: 3 unit Losartan Potassium (Cozaar) 100 mg PO DAILY [facility] Last Admin: 06/20/17 09:18 Dose: 100 mg Montelukast Sodium (Singulair) 10 mg PO HS [facility] Last Admin: 06/19/17 22:22 Dose: 10 mg Nebivolol (Bystolic) 5 mg PO DAILY [facility] Last Admin: 06/20/17 12:47 Dose: 5 mg Pantoprazole Sodium (Protonix Inj) 40 mg IVP Q12H [facility] Last Admin: 06/20/17 09:17 Dose: 40 mg Rosuvastatin Calcium (Crestor) 2.5 mg PO HS [facility] Last Admin: 06/19/17 22:22 Dose: 2.5 mg - Labs Labs: 06/20/17 07:23 06/20/17 07:23 PT 14.4 SECONDS (9.7-12.2) H 06/18/17 02:30 INR 1.3 06/18/17 02:30 APTT 31 SECONDS (21-34) 06/18/17 02:30 - Constitutional Appears: Well, Confused - Head Exam Head Exam: NORMAL INSPECTION - Eye Exam Eye Exam: EOMI, Normal appearance - ENT Exam ENT Exam: Mucous Membranes Moist - Neck Exam Neck Exam: Normal Inspection - Respiratory Exam Respiratory Exam: Clear to Ausculation Bilateral - Cardiovascular Exam Cardiovascular Exam: REGULAR RHYTHM - GI/Abdominal Exam GI & Abdominal Exam: Normal Bowel Sounds - Exam External exam: NORMAL EXTERNAL EXAM - Extremities Exam Extremities Exam: Normal Inspection - Back Exam Back Exam: NORMAL INSPECTION - Neurological Exam Neurological Exam: Alert, Awake, Normal Gait, Oriented x3 - Psychiatric Exam Psychiatric exam: Normal Affect - Skin Skin Exam: Normal Color Assessment and Plan - Assessment and Plan (Free Text) Assessment: 1, Repeat echo demonstrated moderately reduced EF, EF about 35%. Tyoe II diastolic function, but normal tissue doppler, normal LA volume. mild to moderate pulmonary HTN. Pt is on losartan, lasix and bystolic. As per guidlines , bisoprolol is indicated for chf, not bystolic (bystolic approved in [place] for chf). will change to bisoprolol and see if pt tolerates. 2. CHF clinically resolved. Pt to recieve a transfusion, moniotr for chf recurrence: she is taking lasix. 3. CAD is stble. 4. Life vest continuation is advised.
[2017-06-20] MEDS: Potassium Chloride 20 mEq ER Tab PO SCH (18:08)
--- NOTE | 2017-06-20 18:38 | CARD ---
APPROVED REPORT EKG Measurement Heart [id number] MN [id number] [id number] <Conclusion> Normal sinus rhythm Possible Left atrial enlargement Left axis deviation Left bundle branch block Abnormal ECG
[2017-06-20] MEDS ORDERED: Bisacodyl 5mg EC Tab PO ONE (20:00)
[2017-06-20] MEDS: Rosuvastatin Calcium 2.5 mg Tab PO SCH (21:09)
[2017-06-21 01:17] LABS: RBC URINE 2 /hpf (0-3); URINE BILIRUBIN NEGATIVE (NEGATIVE); URINE COLOR Yellow (YELLOW); URINE GLUCOSE (UA) NORMAL (Normal); URINE KETONE NEGATIVE (NEGATIVE); URINE LEUKOCYTE ESTERASE NEG Leu/uL (Negative); URINE PROTEIN NEGATIVE (NEGATIVE); URINE UROBILINOGEN NORMAL mg/dL (0.2-1.0); WBC URINE 2 /hpf (0-5)
[2017-06-21 01:32] LABS: URINE BLOOD TRACE (NEGATIVE)
[2017-06-21] MEDS: Albuterol-Ipratrop 3 mg / 0.5 (3 ml) UD INH SCH ×4 (01:50→19:18)
[2017-06-21] MEDS: (Novolog) Insulin Aspart, Recombinant 100 u/ml 10 ml vial SC SCH ×4 (07:50→21:47)
--- NOTE | 2017-06-21 08:38 | PN ---
DATE: 06/20/2017 SUBJECTIVE: The patient is seen today on 06/20/2017. She is feeling generalized weakness and fatigue with exertional shortness of breath. Hemoglobin is still 8.2. PHYSICAL EXAMINATION: VITAL SIGNS: Blood pressure 126/72, temperature 98.4, respiratory rate 20, and pulse 78. HEENT: Pupils are equal and reactive to light. Normal-appearing mucosa of the conjunctivae, oropharynx, and nasal membrane mucosa. NECK: Supple. No JVD. No carotid bruits. No lymph node. No thyromegaly. CHEST AND LUNGS: Bilateral symmetrical expansion. Good air exchange. No rales. No rhonchi. CARDIOVASCULAR SYSTEM: PMI not localized. S1 and S2. No additional sounds. ABDOMEN: Normoactive bowel sounds. No tenderness. No organomegaly. No masses. EXTREMITIES: No cyanosis. No clubbing. No edema. 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 No neurological deficits could be appreciated. ASSESSMENT: Exacerbation of congestive heart failure, both systolic and diastolic on top of acute and of chronic, anemia of chronic blood loss, iron deficiency anemia, and type 2 diabetes mellitus. PLAN: We will transfuse 1 unit of packed RBCs today. Continue current management and follow GI recommendations. The patient is for colonoscopy tomorrow morning. Son Sadler MD
[2017-06-21 09:00] LABS: CHLORIDE 102 mmol/L (98-107)
[2017-06-21] MEDS: Lactated Ringer's 500 ML IV SCH ×2 (09:00→16:05)
[2017-06-21 09:01] LABS: POTASSIUM 3.8 mmol/L (3.6-5.2); SODIUM 139 mmol/L (132-148)
[2017-06-21 09:03] LABS: GFR AFRICAN-AMERICAN > 60
[2017-06-21 09:04] LABS: BLOOD UREA NITROGEN 12 mg/dL (7-17); CALCIUM 9.6 mg/dl (8.6-10.4); CARBON DIOXIDE 25 mmol/L (22-30); GLUCOSE,RANDOM 149 mg/dL (65-105)
[2017-06-21] MEDS ORDERED: Midazolam 2 MG/2 ML VIAL ONE ×2 (12:53→12:56)
[2017-06-21] MEDS ORDERED: Propofol 10 mg/ml Inj (20 ML) ONE (12:53)
[2017-06-21] MEDS: Ferric Sodium Gluconat Complex 62.5 mg/5 ml Vial IVPB SCH (14:52)
[2017-06-21] MEDS: Potassium Chloride 20 mEq ER Tab PO SCH (14:53)
[2017-06-21 17:04] VITALS: RESP 20
[2017-06-21] MEDS: Pantoprazole 40 mg EC Tab PO SCH (17:33)
[2017-06-21] MEDS: Rosuvastatin Calcium 2.5 mg Tab PO SCH (21:14)
[2017-06-22] MEDS: Albuterol-Ipratrop 3 mg / 0.5 (3 ml) UD INH SCH ×3 (01:08→13:34)
[2017-06-22] MEDS: (Novolog) Insulin Aspart, Recombinant 100 u/ml 10 ml vial SC SCH (07:33)
[2017-06-22 07:42] LABS: BASO # 0.1 K/uL (0.0-0.2); EOS # 0.2 K/uL (0.0-0.7); HEMATOCRIT 28.9 % (34.0-47.0); LYMPH # 2.2 K/uL (1.0-4.3); LYMPH % 24.5 % (20.0-40.0); MEAN CORPUSCULAR HEMOGLOBIN 27.4 pg (27.0-31.0); MEAN CORPUSCULAR HGB CONC 32.7 g/dL (33.0-37.0); MEAN PLATELET VOLUME 9.5 fL (7.2-11.7); MONO # 0.8 K/uL (0.0-0.8); MONO % 8.8 % (0.0-10.0); NRBC % 0.1 % (0.0-2.0); RED CELL DISTRIBUTION WIDTH 16.1 % (11.5-14.5); WHITE BLOOD COUNT 8.8 K/uL (4.8-10.8)
[2017-06-22 07:44] VITALS: BP 120/61; TEMP 98.3; O2SAT 95
[2017-06-22 08:07] LABS: CHLORIDE 101 mmol/L (98-107); POTASSIUM 3.8 mmol/L (3.6-5.2); SODIUM 140 mmol/L (132-148)
[2017-06-22 08:10] LABS: CARBON DIOXIDE 28 mmol/L (22-30); GFR AFRICAN-AMERICAN > 60
[2017-06-22 08:11] LABS: BLOOD UREA NITROGEN 13 mg/dL (7-17); CALCIUM 9.4 mg/dl (8.6-10.4); GLUCOSE,RANDOM 131 mg/dL (65-105)
[2017-06-22 08:18] VITALS: PULSE 80
--- NOTE | 2017-06-22 08:26 | CP.PCM.PN ---
<Eri Crouch - Last Filed: 06/22/17 08:23> Subjective - Date & Time of Evaluation Date of Evaluation: 06/22/17 Time of Evaluation: 08:24 - Subjective Subjective: Gastroenterology Fellow/PGY5 Progress Note Patient notes resolved shortness of breath and weakness. Walked in room without feeling lightheaded or dizzy. Tolerating regular diet. No bowel movement yesterday. A 12-point review of systems negative except for as above. Objective - Vital Signs/Intake and Output Vital Signs (last 24 hours): Temp Pulse Resp BP Pulse Ox 98.3 F 80 20 120/61 95 06/22/17 07:40 06/22/17 08:00 06/22/17 07:40 06/22/17 07:40 06/22/17 07:40 Intake and Output: 06/22/17 06/22/17 06:59 18:59 Intake Total 600 Balance 600 - Medications Medications: Current Medications Albuterol/Ipratropium (Duoneb 3 Mg/0.5 Mg (3 Ml) Ud) 3 ml INH RQ6 [facility] Last Admin: 06/22/17 07:12 Dose: Not Given Alprazolam (Xanax) 0.25 mg PO DAILY PRN PRN Reason: Anxiety Stop: 06/26/17 10:01 Amlodipine Besylate (Norvasc) 5 mg PO DAILY [facility] Last Admin: 06/21/17 14:53 Dose: 5 mg Amoxicillin (Amoxil 500 Mg Cap) 1,000 mg PO BID [facility] Last Admin: 06/21/17 18:16 Dose: 1,000 mg Clarithromycin (Biaxin Filmtab) 500 mg PO BID [facility] Last Admin: 06/21/17 18:17 Dose: 500 mg Escitalopram Oxalate (Lexapro) 10 mg PO DAILY [facility] Last Admin: 06/21/17 14:53 Dose: 10 mg Ferric Sodium Gluconate Complex (Ferrlecit) 125 mg IVPB DAILY [facility] Stop: 06/22/17 15:46 Last Admin: 06/21/17 14:52 Dose: 125 mg Furosemide (Lasix) 20 mg IVP Q12 [facility] Last Admin: 06/21/17 21:51 Dose: 20 mg Glimepiride (Amaryl) 4 mg PO ACBD [facility] Last Admin: 06/21/17 17:33 Dose: 4 mg Insulin Aspart (Novolog) 0 unit SC ACHS [facility] PRN Reason: Protocol Last Admin: 06/22/17 07:33 Dose: Not Given Losartan Potassium (Cozaar) 100 mg PO DAILY [facility] Last Admin: 06/21/17 14:52 Dose: Not Given Montelukast Sodium (Singulair) 10 mg PO HS [facility] Last Admin: 06/21/17 21:14 Dose: 10 mg Nebivolol (Bystolic) 5 mg PO DAILY [facility] Last Admin: 06/21/17 14:52 Dose: 5 mg Pantoprazole Sodium (Protonix Ec Tab) 40 mg PO BID [facility] Last Admin: 06/21/17 17:33 Dose: 40 mg Potassium Chloride (K-Dur 20 Meq Er Tab) 20 meq PO DAILY [facility] Last Admin: 06/21/17 14:53 Dose: 20 meq Rosuvastatin Calcium (Crestor) 2.5 mg PO HS [facility] Last Admin: 06/21/17 21:14 Dose: 2.5 mg - Labs Labs: 06/22/17 07:29 06/22/17 07:29 PT 14.4 SECONDS (9.7-12.2) H 06/18/17 02:30 INR 1.3 06/18/17 02:30 APTT 31 SECONDS (21-34) 06/18/17 02:30 - Constitutional Appears: Non-toxic, No Acute Distress - Head Exam Head Exam: ATRAUMATIC, NORMOCEPHALIC - Eye Exam Eye Exam: EOMI, PERRL. absent: Scleral icterus Pupil Exam: PERRL. absent: Miosis, Mydriatic - ENT Exam ENT Exam: Mucous Membranes Moist, Normal Oropharynx - Neck Exam Neck Exam: Full ROM, Normal Inspection - Respiratory Exam Respiratory Exam: Clear to Ausculation Bilateral. absent: Rales, Rhonchi, Wheezes - Cardiovascular Exam Cardiovascular Exam: RRR, +S1, +S2. absent: Gallop, Rubs Additional comments: lifevest in place - GI/Abdominal Exam GI & Abdominal Exam: Soft, Normal Bowel Sounds - Extremities Exam Extremities Exam: Normal Inspection. absent: Pedal Edema - Neurological Exam Neurological Exam: Alert, Awake - Psychiatric Exam Psychiatric exam: Normal Affect, Normal Mood - Skin Skin Exam: Dry, Intact, Normal Color, Warm Assessment and Plan - Assessment and Plan (Free Text) Assessment: 66 year old female with history of Hypertension, Hyperlipidemia, CAD s/p stents/ CABG, and CHF s/p Lifevest presenting with shortness of breath and weakness. Active treatment of decompensated CHF and normocytic anemia POD 3 (06/19) EGD showing H. pylori gastritis and POD1 (06/21) colonoscopy showing sigmoid diverticulosis, 3 polyps <1cm, and poor prep. Plan: >H/H stable >no overt signs of GI blood loss >receiving iron infusions >continue PPI BID >follow up polyp (x3) pathology >on day 2 triple therapy for H pylori gastritis >tolerating diet >okay to resume antiplatelet therapy/DVT PPx >cardiology managing- follow up recommendations >Outpatient follow up for repeat colonoscopy in 3 months due to poor prep and polyp pathology >Thank you for opportunity to participate in the care of this patient. Please contact with questions or concerns. <Moo Davis - Last Filed: 06/22/17 11:08> Objective - Vital Signs/Intake and Output Vital Signs (last 24 hours): Temp Pulse Resp BP Pulse Ox 98.3 F 80 20 120/61 95 06/22/17 07:40 06/22/17 08:00 06/22/17 07:40 06/22/17 09:29 06/22/17 07:40 Intake and Output: 06/22/17 06/22/17 06:59 18:59 Intake Total 600 Balance 600 - Medications Medications: Current Medications Albuterol/Ipratropium (Duoneb 3 Mg/0.5 Mg (3 Ml) Ud) 3 ml INH RQ6 [facility] Last Admin: 06/22/17 07:12 Dose: Not Given Alprazolam (Xanax) 0.25 mg PO DAILY PRN PRN Reason: Anxiety Stop: 06/26/17 10:01 Amlodipine Besylate (Norvasc) 5 mg PO DAILY [facility] Last Admin: 06/22/17 09:28 Dose: 5 mg Amoxicillin (Amoxil 500 Mg Cap) 1,000 mg PO BID [facility] Last Admin: 06/22/17 09:26 Dose: 1,000 mg Clarithromycin (Biaxin Filmtab) 500 mg PO BID [facility] Last Admin: 06/22/17 09:27 Dose: 500 mg Escitalopram Oxalate (Lexapro) 10 mg PO DAILY [facility] Last Admin: 06/22/17 09:28 Dose: 10 mg Ferric Sodium Gluconate Complex (Ferrlecit) 125 mg IVPB DAILY [facility] Stop: 06/22/17 15:46 Last Admin: 06/22/17 09:27 Dose: 125 mg Furosemide (Lasix) 40 mg PO DAILY [facility] Glimepiride (Amaryl) 4 mg PO ACBD [facility] Last Admin: 06/22/17 08:05 Dose: 4 mg Insulin Aspart (Novolog) 0 unit SC ACHS [facility] PRN Reason: Protocol Last Admin: 06/22/17 07:33 Dose: Not Given Losartan Potassium (Cozaar) 100 mg PO DAILY [facility] Last Admin: 06/22/17 09:28 Dose: 100 mg Montelukast Sodium (Singulair) 10 mg PO HS [facility] Last Admin: 06/21/17 21:14 Dose: 10 mg Nebivolol (Bystolic) 5 mg PO DAILY [facility] Last Admin: 06/22/17 09:28 Dose: 5 mg Pantoprazole Sodium (Protonix Ec Tab) 40 mg PO BID [facility] Last Admin: 06/22/17 09:28 Dose: 40 mg Potassium Chloride (K-Dur 20 Meq Er Tab) 20 meq PO DAILY [facility] Last Admin: 06/22/17 09:28 Dose: 20 meq Rosuvastatin Calcium (Crestor) 2.5 mg PO HS [facility] Last Admin: 06/21/17 21:14 Dose: 2.5 mg - Labs Labs: 06/22/17 07:29 06/22/17 07:29 PT 14.4 SECONDS (9.7-12.2) H 06/18/17 02:30 INR 1.3 06/18/17 02:30 APTT 31 SECONDS (21-34) 06/18/17 02:30 Attending/Attestation - Attestation I have personally seen and examined this patient.: Yes I have fully participated in the care of the patient.: Yes I have reviewed all pertinent clinical information, including history, physical exam and plan: Yes Notes (Text): 06/22/17 11:05 I have seen and examined patient with GI fellow. No acute events overnight, she overall feels better, weakness and dyspnea have improved. She denies abdominal pain, nausea, vomiting fever/chills. Tolerating PO diet without difficulty. No bowel movements overnight. CAD HTN Hyperlipidemia Obesity Decompensated CHF Iron deficiency anemia - s/p EGD and colonoscopy showing helicobacter pylori associated gastritis, colon polys, poor right sided bowel preparation - Diet as tolerated - H/H stable, continue to monitor, no overt bleeding noted - Awaiting pathology results from colonoscopy - Continue with triple therapy antibiotics for treatment of hpylori, patient will require breath test to confirm eradication 2 weeks after completing regimen - Follow up cardiology recommendations - No further planned GI intervention, will sign off case. She will require outpatient follow up with repeat colonoscopy in 3 months. Will sign off case, please reconsult as necessary, thank you.
[2017-06-22] MEDS: Ferric Sodium Gluconat Complex 62.5 mg/5 ml Vial IVPB SCH (09:27)
[2017-06-22] MEDS: Potassium Chloride 20 mEq ER Tab PO SCH (09:28)
[2017-06-22] MEDS: Pantoprazole 40 mg EC Tab PO SCH (09:28)
--- NOTE | 2017-06-22 09:59 | CP.PCM.PN ---
Subjective - Date & Time of Evaluation Date of Evaluation: 06/22/17 Time of Evaluation: 09:59 - Subjective Subjective: Pt feels, well, no dyspnea Objective - Vital Signs/Intake and Output Vital Signs (last 24 hours): Temp Pulse Resp BP Pulse Ox 98.3 F 80 20 120/61 95 06/22/17 07:40 06/22/17 08:00 06/22/17 07:40 06/22/17 09:29 06/22/17 07:40 Intake and Output: 06/22/17 06/22/17 06:59 18:59 Intake Total 600 Balance 600 - Medications Medications: Current Medications Albuterol/Ipratropium (Duoneb 3 Mg/0.5 Mg (3 Ml) Ud) 3 ml INH RQ6 [facility] Last Admin: 06/22/17 07:12 Dose: Not Given Alprazolam (Xanax) 0.25 mg PO DAILY PRN PRN Reason: Anxiety Stop: 06/26/17 10:01 Amlodipine Besylate (Norvasc) 5 mg PO DAILY [facility] Last Admin: 06/22/17 09:28 Dose: 5 mg Amoxicillin (Amoxil 500 Mg Cap) 1,000 mg PO BID [facility] Last Admin: 06/22/17 09:26 Dose: 1,000 mg Clarithromycin (Biaxin Filmtab) 500 mg PO BID [facility] Last Admin: 06/22/17 09:27 Dose: 500 mg Escitalopram Oxalate (Lexapro) 10 mg PO DAILY [facility] Last Admin: 06/22/17 09:28 Dose: 10 mg Ferric Sodium Gluconate Complex (Ferrlecit) 125 mg IVPB DAILY [facility] Stop: 06/22/17 15:46 Last Admin: 06/22/17 09:27 Dose: 125 mg Glimepiride (Amaryl) 4 mg PO ACBD [facility] Last Admin: 06/22/17 08:05 Dose: 4 mg Insulin Aspart (Novolog) 0 unit SC ACHS [facility] PRN Reason: Protocol Last Admin: 06/22/17 07:33 Dose: Not Given Losartan Potassium (Cozaar) 100 mg PO DAILY [facility] Last Admin: 06/22/17 09:28 Dose: 100 mg Montelukast Sodium (Singulair) 10 mg PO HS [facility] Last Admin: 06/21/17 21:14 Dose: 10 mg Nebivolol (Bystolic) 5 mg PO DAILY [facility] Last Admin: 06/22/17 09:28 Dose: 5 mg Pantoprazole Sodium (Protonix Ec Tab) 40 mg PO BID [facility] Last Admin: 06/22/17 09:28 Dose: 40 mg Potassium Chloride (K-Dur 20 Meq Er Tab) 20 meq PO DAILY [facility] Last Admin: 06/22/17 09:28 Dose: 20 meq Rosuvastatin Calcium (Crestor) 2.5 mg PO HS [facility] Last Admin: 06/21/17 21:14 Dose: 2.5 mg - Labs Labs: 06/22/17 07:29 06/22/17 07:29 PT 14.4 SECONDS (9.7-12.2) H 06/18/17 02:30 INR 1.3 06/18/17 02:30 APTT 31 SECONDS (21-34) 06/18/17 02:30 - Constitutional Appears: Well - Head Exam Head Exam: NORMAL INSPECTION - Eye Exam Eye Exam: EOMI Pupil Exam: NORMAL ACCOMODATION - ENT Exam ENT Exam: Mucous Membranes Moist - Respiratory Exam Respiratory Exam: Clear to Ausculation Bilateral, NORMAL BREATHING PATTERN - Cardiovascular Exam Cardiovascular Exam: REGULAR RHYTHM - GI/Abdominal Exam GI & Abdominal Exam: Normal Bowel Sounds - Extremities Exam Extremities Exam: Full ROM, Normal Inspection - Back Exam Back Exam: NORMAL INSPECTION - Neurological Exam Neurological Exam: Alert, Awake, Normal Gait, Oriented x3 - Psychiatric Exam Psychiatric exam: Normal Affect - Skin Skin Exam: Normal Color Assessment and Plan - Assessment and Plan (Free Text) Plan: 1. Stable cad. H Pylori gastritis. 2. Cardiomyopathy: no lung congestion now. Change IV lasix to po. 3. Pt will wear life vest, continue other meds, follow up in office.
--- NOTE | 2017-06-22 14:12 | PCM.HF ---
Heart Failure Core Measure - Heart Failure Ejection Fraction: Less Than 40 % (EF 34%) GUMARO Inhibitor Prescribed: No Contraindication/Reason for not providing: on arb Beta-Víctor Prescribed: Bisoprolol Angiotensin II Receptor Víctor Prescribed: Yes AnticoagulationTherapy for Atrial Fibrillation/Atrialflutter: No Contraindication/Reason for not providing: NO AFIB Aldosterone Antagonist Prescribed: No Contraindication/Reason for not providing: BP is controlled Hydralazine Nitrate Prescribed: No Contraindication/Reason for not providing: on calcium channel víctor Contraindication/Reason for not providing: ON LIFEVEST, will follow up with cardiologyst - Follow up Follow Up Date (must be within 7 days from discharge): 06/26/17 Follow Up Time: 09:00
--- NOTE | 2017-06-27 10:29 | DS ---
REASON FOR ADMISSION: This is a 66-year-old female with history of multiple medical problems, who was admitted for exacerbation of congestive heart failure and symptomatic anemia. COURSE OF HOSPITALIZATION: The patient was given diuretics and her blood pressure was stable. The patient had also colonoscopy during this hospitalization and EGD that did not show any source of active bleeding. The patient was discharged in a stable condition to follow with her primary care physician and Gastroenterology as an outpatient. During this hospitalization, the patient was transfused 1 unit of packed RBCs and hemoglobin came up to 9.2. The patient had melanotic stool when she came into the hospital that gradually improved. FINAL DIAGNOSES: Gastrointestinal bleeding, hypertension, coronary artery disease, type 2 diabetes mellitus, hypertension, Helicobacter pylori gastritis. [facility] MD Doroteo
== END 2017-06-22 15:17 | disposition home or self-care (01) | DRG 377 ==
LOC: C.ER 01:46 → C.5S 04:41 → C.6T 06-20 15:23 → C.5S 06-21 06:13
PROVIDERS: ADMIT Internal Medicine; ATTEND Internal Medicine
PROC: 30233N1 Transfusion of Nonautologous Red Blood Cells into Peripheral Vein, Percutaneous Approach (ICD-10-PCS; 2017-06-18)
PROC: 0DD98ZX Extraction of Duodenum, Via Natural or Artificial Opening Endoscopic, Diagnostic (ICD-10-PCS; 2017-06-19)
PROC: 0DD68ZX Extraction of Stomach, Via Natural or Artificial Opening Endoscopic, Diagnostic (ICD-10-PCS; 2017-06-19)
PROC: 0DBL8ZZ Excision of Transverse Colon, Via Natural or Artificial Opening Endoscopic (ICD-10-PCS; 2017-06-21)
PROC: 0DBN8ZZ Excision of Sigmoid Colon, Via Natural or Artificial Opening Endoscopic (ICD-10-PCS; 2017-06-21)
PROC: 0DBK8ZZ Excision of Ascending Colon, Via Natural or Artificial Opening Endoscopic (ICD-10-PCS; principal; 2017-06-21 13:01)
DX: K92.1 Melena (principal); I50.43 Acute on chronic combined systolic (congestive) and diastolic (congestive) heart failure; I42.0 Dilated cardiomyopathy; I27.20 Pulmonary hypertension, unspecified; I87.1 Compression of vein; E66.01 Morbid (severe) obesity due to excess calories; I11.0 Hypertensive heart disease with heart failure; Z95.1 Presence of aortocoronary bypass graft; E11.9 Type 2 diabetes mellitus without complications; B96.81 Helicobacter pylori [H. pylori] as the cause of diseases classified elsewhere; D12.2 Benign neoplasm of ascending colon; K29.70 Gastritis, unspecified, without bleeding; D50.0 Iron deficiency anemia secondary to blood loss (chronic); D12.3 Benign neoplasm of transverse colon; D12.5 Benign neoplasm of sigmoid colon; K64.1 Second degree hemorrhoids; K57.30 Diverticulosis of large intestine without perforation or abscess without bleeding; Z79.4 Long term (current) use of insulin; E78.5 Hyperlipidemia, unspecified; I25.10 Atherosclerotic heart disease of native coronary artery without angina pectoris; J45.909 Unspecified asthma, uncomplicated; Z79.82 Long term (current) use of aspirin; Z79.899 Other long term (current) drug therapy; Z87.891 Personal history of nicotine dependence; Z95.5 Presence of coronary angioplasty implant and graft

== ENCOUNTER 2017-07-02 03:29 | Inpatient (IN) | payer MEDICARE, MEDICAID ==
--- NOTE | 2017-07-02 03:45 | C.PDOC ---
History Of Present Illness 66 y/o F c PMHx CAD s/p stent, CHF, wears defibrillator vest, COPD, HTN p/w dyspnea that began shortly prior to arrival. Patient called EMS for sudden shortness of breath. Denies chest pain, fever, cough, vomiting. Full HPI and ROS unobtainable due to acuity of patient's condition. Chief Complaint (Nursing): Shortness Of Breath Past Medical History Vital Signs: Last Vital Signs Temp Pulse 116 H 07/02/17 03:35 Resp 16 07/02/17 03:33 BP 156/77 H 07/02/17 03:40 Pulse Ox 100 07/02/17 03:33 - Medical History PMH: Asthma, CHF, HTN Surgical History: Cholecystectomy, Coronary Stent (3) - [facility] (06/18/17) (06/18/17) EXCISION OF ASCENDING COLON, ENDO (06/18/17) EXCISION OF SIGMOID COLON, ENDO (06/18/17) EXCISION OF TRANSVERSE COLON, ENDO (06/18/17) TRANSFUSE NONAUT RED BLOOD CELLS IN PERIPH VEIN, PERC (06/18/17) Family History: States: Unknown Family Hx - Social History Hx Alcohol Use: No Hx Substance Use: No - Immunization History Hx Tetanus Toxoid Vaccination: No Hx Influenza Vaccination: No Hx Pneumococcal Vaccination: No Review Of Systems Review Of Systems: ROS cannot be obtained secondary to pt's inabilty to answer questions. Physical Exam - Physical Exam Additional Physical Exam Comments: Constitutional: In acute respiratory distress. Head: Normocephalic. Atraumatic. Eyes: PERRL. ENT: Moist mucous membranes. Neck: Supple. Cardiovascular: Tachycardic. Radial pulse 2+ bilaterally. Chest: No tenderness. Respiratory: Crackles bilaterally to midlung. GI: Soft. Nontender. Obese. Back: No CVA tenderness. Musculoskeletal: Swelling of extremities. Skin: No rash. Neurologic: Alert, no focal deficit. ED Course And Treatment - Laboratory Results Result Diagrams: 07/02/17 03:49 07/02/17 03:49 Critical Care Time - Critical Care Note Total Time (in mins): 45 Comments: Seen immediately upon arrival due to acuity of condition. Required frequent reassessments. Documented critical care: time excludes all time spent performing seperately billable procedures. Medical Decision Making Medical Decision Making: EKG Sinus rhythm, 120 bpm, LBBB, no concordant ST elevations Patient placed immediately on BiPap. Nitro SL and Lasix 80 administered. Patient with significant relief shortly thereafter. HR came to below 100, RR improved to 20, pulse oximetry 100% on BiPap, blood pressure from SBP 200+ to 150s. Will continue BiPap, monitor closely. Will require admission for further treatment for CHF/Flash pulmonary edema. CXR shows cardiomegaly and pulmonary congestion. Disposition Discussed With Dr.: Son Sadler Doctor Will See Patient In The: Hospital - Disposition Disposition: HOSPITALIZED Disposition Time: 04:25 Condition: GUARDED Forms: [facility] (Ukrainian) - Clinical Impression Clinical Impression: Flash pulmonary edema, CHF (congestive heart failure)
[2017-07-02 03:50] VITALS: BMI 35.2
[2017-07-02 03:53] LABS: BASO # 0.1 K/uL (0.0-0.2); EOS # 0.2 K/uL (0.0-0.7); EOS % 1.4 % (0.0-4.0); HEMATOCRIT 33.6 % (34.0-47.0); LYMPH # 3.5 K/uL (1.0-4.3); LYMPH % 27.2 % (20.0-40.0); MEAN CELL VOLUME 86.4 fL (81.0-99.0); MEAN CORPUSCULAR HEMOGLOBIN 27.2 pg (27.0-31.0); MEAN CORPUSCULAR HGB CONC 31.5 g/dL (33.0-37.0); MEAN PLATELET VOLUME 10.2 fL (7.2-11.7); MONO % 7.6 % (0.0-10.0); NRBC % 0.1 % (0.0-2.0); RED CELL DISTRIBUTION WIDTH 18.2 % (11.5-14.5)
[2017-07-02 04:01] LABS: CHLORIDE 102 mmol/L (98-107)
[2017-07-02 04:02] LABS: INR 1.3; POTASSIUM 3.3 mmol/L (3.6-5.2); SODIUM 138 mmol/L (132-148)
[2017-07-02 04:04] LABS: GFR AFRICAN-AMERICAN > 60
[2017-07-02 04:05] LABS: ALKALINE PHOSPHATASE 87 U/L (38-126); ALT/SGPT 24 U/L (9-52); AST/SGOT 27 U/L (14-36); BILIRUBIN,TOTAL 1.4 mg/dL (0.2-1.3); BLOOD UREA NITROGEN 9 mg/dL (7-17); CALCIUM 9.4 mg/dl (8.6-10.4); CARBON DIOXIDE 21 mmol/L (22-30); GLUCOSE,RANDOM 176 mg/dL (65-105)
[2017-07-02 04:28] LABS: RBC URINE 7 /hpf (0-3); URINE BILIRUBIN NEGATIVE (NEGATIVE); URINE BLOOD NEGATIVE (NEGATIVE); URINE COLOR Colorless (YELLOW); URINE GLUCOSE (UA) NORMAL (Normal); URINE KETONE NEGATIVE (NEGATIVE); URINE LEUKOCYTE ESTERASE NEG Leu/uL (Negative); URINE PROTEIN NEGATIVE (NEGATIVE); URINE UROBILINOGEN NORMAL mg/dL (0.2-1.0); WBC URINE 4 /hpf (0-5)
--- NOTE | 2017-07-02 09:21 | RAD ---
HISTORY: dyspnea COMPARISON: 06/18/2017 FINDINGS: LUNGS: Moderate to severe venous congestion with prominent confluent bibasilar airspace opacities and bilateral pleural effusions. PLEURA: As above. CARDIOVASCULAR: Cardiomegaly. OSSEOUS STRUCTURES: Degenerative changes in the spine and shoulders. VISUALIZED UPPER ABDOMEN: Normal. OTHER FINDINGS: None. IMPRESSION: Moderate to severe venous congestion with prominent confluent bibasilar airspace opacities and bilateral pleural effusions.
[2017-07-02] MEDS ORDERED: ALBUTEROL SULFATE PO PRN (14:34)
[2017-07-02] MEDS ORDERED: Albuterol HFA 90 mcg/actuation (8 g) INH PRN (15:15)
[2017-07-02] MEDS: Pantoprazole 40 mg EC Tab PO SCH (16:21)
[2017-07-02] MEDS: (Novolog) Insulin Aspart, Recombinant 100 u/ml 10 ml vial SC SCH ×2 (17:25→22:36)
[2017-07-03] MEDS: (Novolog) Insulin Aspart, Recombinant 100 u/ml 10 ml vial SC SCH ×4 (07:30→21:49)
[2017-07-03] MEDS: Enoxaparin 40 mg Syringe SC SCH (09:57)
[2017-07-03] MEDS: Pantoprazole 40 mg EC Tab PO SCH (09:59)
--- NOTE | 2017-07-03 10:27 | CP.PCM.CON ---
History of Present Illness - History of Present Illness History of Present Illness: The pt is a 66 year old woman with CAD, s/p cabg 2011, s/p three stents before cabg. PT HAD chf IN 2004, and CHF improved after Bi V pacing as per 2014 echo at [facility] (reviewed today by me). Pt had VT years ago. Pt had had no angina, no chf episodes. 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 Although LV EF has gotten better, Because of h/o VT, pt was advised to wear a life vest. two weeks, ago, pt noticed some dark stools, but did not alert her PMD. Pt took asa, no other anti plt agent or coumadin,. She noticed increasing SOB, orthopnea and came to ER. CXR then showed possible chf, mildly elevated BNP but very poor quality film. Pt felt much better after lasix. Pt went home and on monday became SOB again. BPN 1490, again, very poor film but read as CHF. TNI are negative. ECG LBBB. Pt;s current inpatient meds do not include neelam or arb. I do not kown if she was taking one as an outpatient (she was on losartan). Pt on bystolic , not other approved fda beta gama as she has asthma and tolerates selective bystolic better. Review of Systems - Review of Systems All systems: reviewed and no additional remarkable complaints except (as above, otherwsie negative) Past Patient History - Infectious Disease Hx of Infectious Diseases: None - Past Medical History & Family History Past Medical History?: Yes - Past Social History Smoking Status: Former Smoker - CARDIAC Hx Congestive Heart Failure: Yes Hx Hypertension: Yes - PULMONARY Hx Asthma: Yes - ENDOCRINE/METABOLIC Hx Diabetes Mellitus Type 1: Yes - INTEGUMENTARY Hx Dermatological Problems: No - MUSCULOSKELETAL/RHEUMATOLOGICAL Hx Falls: No - PSYCHIATRIC Hx Substance Use: No - SURGICAL HISTORY Hx Cholecystectomy: Yes Hx Coronary Stent: Yes (3) - ANESTHESIA Hx Anesthesia: Yes Hx Anesthesia Reactions: No Meds Allergies/Adverse Reactions: Allergies Allergy/AdvReac Type Severity Reaction Status Date / Time No Known Allergies Allergy Verified 06/18/17 02:07 - Medications Medications: Current Medications Albuterol (Ventolin Hfa 90 Mcg/Actuation (8 G)) 0 puff INH RQ4 PRN PRN Reason: Shortness of Breath Alprazolam (Xanax) 0.25 mg PO TID PRN PRN Reason: Anxiety Stop: 07/09/17 14:35 Last Admin: 07/03/17 09:56 Dose: 0.25 mg Amlodipine Besylate (Norvasc) 2.5 mg PO DAILY [facility] Last Admin: 07/03/17 09:56 Dose: 2.5 mg Amoxicillin (Amoxil 500 Mg Cap) 1,000 mg PO BID [facility] Last Admin: 07/02/17 19:03 Dose: 1,000 mg Aspirin (Ecotrin) 81 mg PO DAILY [facility] Last Admin: 07/03/17 09:56 Dose: 81 mg Enoxaparin Sodium (Lovenox) 40 mg SC DAILY [facility] Last Admin: 07/03/17 09:57 Dose: 40 mg Escitalopram Oxalate (Lexapro) 10 mg PO DAILY [facility] Last Admin: 07/03/17 09:56 Dose: 10 mg Ferrous Sulfate (Feosol) 325 mg PO BID [facility] Last Admin: 07/03/17 09:56 Dose: 325 mg Furosemide (Lasix) 20 mg IVP Q12H [facility] Last Admin: 07/03/17 02:57 Dose: 20 mg Glimepiride (Amaryl) 4 mg PO DAILY [facility] Last Admin: 07/03/17 09:57 Dose: 4 mg Home Med (Linagliptin [Tradjenta]) 5 mg PO DAILY [facility] Insulin Aspart (Novolog) 0 unit SC ACHS [facility] PRN Reason: Protocol Last Admin: 07/03/17 07:30 Dose: Not Given Metformin HCl (Glucophage Xr) 750 mg PO BID [facility] Last Admin: 07/03/17 09:56 Dose: 750 mg Montelukast Sodium (Singulair) 10 mg PO HS [facility] Last Admin: 07/02/17 22:32 Dose: 10 mg Nebivolol (Bystolic) 10 mg PO DAILY [facility] Last Admin: 07/02/17 16:13 Dose: 10 mg Pantoprazole Sodium (Protonix Ec Tab) 40 mg PO DAILY [facility] Last Admin: 07/03/17 09:59 Dose: 40 mg Pneumococcal Polyvalent Vaccine (Pneumovax 23 Vaccine) 0.5 ml IM .ONCE ONE Stop: 07/05/17 14:01 Rosuvastatin Calcium (Crestor) 5 mg PO [facility] Last Admin: 07/02/17 22:32 Dose: 5 mg Physical Exam - Eye Exam Eye Exam: EOMI, Normal appearance - ENT Exam ENT Exam: Mucous Membranes Moist - Neck Exam Neck exam: Positive for: Full Rom, Normal Inspection - Respiratory Exam Respiratory Exam: Clear to Auscultation Bilateral - Cardiovascular Exam Cardiovascular Exam: REGULAR RHYTHM - GI/Abdominal Exam GI & Abdominal Exam: Normal Bowel Sounds - Exam External exam: NORMAL EXTERNAL EXAM - Extremities Exam Extremities exam: Positive for: normal inspection - Back Exam Back exam: NORMAL INSPECTION - Neurological Exam Neurological exam: Alert, CN II-XII Intact, Normal Gait, Oriented x3 - Psychiatric Exam Psychiatric exam: Normal Affect, Normal Mood - Skin Skin Exam: Normal Color Results - Vital Signs Recent Vital Signs: Last Vital Signs Temp 97.7 F 07/03/17 08:51 Pulse 86 07/03/17 08:51 Resp 21 07/03/17 08:51 BP 136/65 07/03/17 08:51 Pulse Ox 93 L 07/03/17 08:51 - Labs Result Diagrams: 07/02/17 03:49 07/02/17 03:49 Labs: Laboratory Results - last 24 hr 07/02/17 07/02/17 07/02/17 11:29 17:16 22:33 POC Glucose (mg/dL) 207 H 142 H 188 H 07/03/17 06:23 POC Glucose (mg/dL) 150 H - EKG Data EKG shows normal: Sinus rhythm (LBBB) Assessment & Plan - Assessment and Plan (Free Text) Assessment: 1. Without the benefit of a second LV lead on BiV pacing, the patients LV EF has deteriorated, butr not extremely severe. Flash pulmonary edema clinically with elevated BNP, however, cxr quality in my opinion is unreadable. Will repeat. Last visit, anemia could be blamed for CHF exacerbation, but not this time. Unclear if pt was taking arb as she should have (entresto, which can be started as an outpt isabel be better). Will add ARB, repeat cxr, try to advance beta gama. WIll discuss with DR claros of EP the timing of repeat ICD placement.
[2017-07-03 14:33] LABS: BASO # 0.1 K/uL (0.0-0.2); EOS # 0.1 K/uL (0.0-0.7); EOS % 1.6 % (0.0-4.0); HEMATOCRIT 31.4 % (34.0-47.0); LYMPH # 2.3 K/uL (1.0-4.3); LYMPH % 25.7 % (20.0-40.0); MEAN CELL VOLUME 85.2 fL (81.0-99.0); MEAN CORPUSCULAR HEMOGLOBIN 27.6 pg (27.0-31.0); MEAN CORPUSCULAR HGB CONC 32.4 g/dL (33.0-37.0); MEAN PLATELET VOLUME 10.1 fL (7.2-11.7); MONO # 0.8 K/uL (0.0-0.8); MONO % 8.8 % (0.0-10.0); RED CELL DISTRIBUTION WIDTH 17.8 % (11.5-14.5)
[2017-07-03 14:35] LABS: CHLORIDE 100 mmol/L (98-107)
[2017-07-03 14:36] LABS: POTASSIUM 3.2 mmol/L (3.6-5.2); SODIUM 137 mmol/L (132-148)
[2017-07-03 14:38] LABS: GFR AFRICAN-AMERICAN > 60
[2017-07-03 14:39] LABS: BLOOD UREA NITROGEN 12 mg/dL (7-17); CALCIUM 9.8 mg/dl (8.6-10.4); CARBON DIOXIDE 27 mmol/L (22-30); GLUCOSE,RANDOM 131 mg/dL (65-105)
--- NOTE | 2017-07-03 16:19 | RAD ---
PROCEDURE: CHEST RADIOGRAPH, 1 VIEW HISTORY: Congestive heart failure COMPARISON: 07/02/2017 FINDINGS: LUNGS: Mild venous congestion. Patchy opacity at the left lung base with question small left pleural effusion. PLEURA: As above. CARDIOVASCULAR: Status post median sternotomy and CABG. Cardiomegaly. External wiring projects over the left eduardo thorax. OSSEOUS STRUCTURES: Degenerative changes. VISUALIZED UPPER ABDOMEN: Normal. OTHER FINDINGS: None. IMPRESSION: Mild venous congestion. Patchy opacity at the left lung base with question small left pleural effusion.
[2017-07-03 17:41] VITALS: RESP 20
--- NOTE | 2017-07-03 22:26 | CARD ---
APPROVED REPORT EKG Measurement Heart [id number] <Conclusion> Sinus tachycardia Possible Left atrial enlargement Left axis deviation Left bundle branch block Abnormal ECG
--- NOTE | 2017-07-04 03:52 | HP ---
DATE: HISTORY OF PRESENT ILLNESS: This is a 66-year-old female with history of multiple medical problems including congestive heart failure, both systolic and diastolic, status post biventricular pacemaker and ICD placement. Currently, there is pacemaker malfunction and ICD malfunction and the patient is having a LifeVest. The patient recently was admitted to the hospital for similar presentation, but that was due to anemia that led to exacerbation of CHF. The patient came with flash pulmonary edema. The patient was given IV diuretics and symptoms improved, but the patient admitted for further management. REVIEW OF SYSTEMS: Other review of system is negative. ALLERGIES: No known allergy. MEDICATIONS: Medications reviewed and as per MAR. SOCIAL HISTORY: No history of smoking, ETOH, or substance abuse. FAMILY HISTORY: Noncontributory. PAST MEDICAL HISTORY: CHF, both systolic and diastolic; hypertension; type 2 diabetes mellitus; bronchial asthma; H. pylori gastritis, status post upper GI bleeding. PHYSICAL EXAMINATION: GENERAL: The patient is in bed, comfortable at the time of this examination with no cardiopulmonary distress. VITAL SIGNS: Blood pressure 130/53, temperature 97.9, respiratory rate 20, and pulse 74. HEENT: Pupils equal and reactive to light. Normal-appearing mucosa of the conjunctivae, oropharynx, and nasal membrane mucosa. NECK: Supple. No JVD. No carotid bruit. No lymph node. No thyromegaly. CHEST AND LUNGS: Bilateral symmetrical expansion. Good air exchange. No rales. No rhonchi. CARDIOVASCULAR SYSTEM: PMI not localized. S1, S2. No additional sounds. ABDOMEN: Normoactive bowel sounds. No tenderness. No organomegaly. No masses. EXTREMITIES: No cyanosis or clubbing. No edema. CENTRAL NERVOUS SYSTEM: Alert, awake, oriented x3. No neurological deficit could be appreciated. ASSESSMENT: 1. Flash pulmonary edema. 2. Congestive heart failure, both acute on top of chronic systolic and diastolic. 3. Type 2 diabetes mellitus. 4. Status post implantable cardioverter-defibrillator placement, currently malfunctioned and the patient is on LifeVest. PLAN: Follow recommendations of desk director regarding adding ARB. The patient is for further procedure by director global market research to replace the biventricular pacer and ICD. Resume all home medications. [facility] MD [facility] # [id number]
[2017-07-04] MEDS: (Novolog) Insulin Aspart, Recombinant 100 u/ml 10 ml vial SC SCH ×4 (07:31→22:03)
[2017-07-04] MEDS: Potassium Chloride 20 mEq ER Tab PO SCH (10:00)
[2017-07-04] MEDS: Enoxaparin 40 mg Syringe SC SCH (10:01)
[2017-07-04] MEDS: Pantoprazole 40 mg EC Tab PO SCH (10:02)
[2017-07-04 12:15] LABS: CHLORIDE 100 mmol/L (98-107); SODIUM 139 mmol/L (132-148)
[2017-07-04 12:16] LABS: POTASSIUM 3.3 mmol/L (3.6-5.2)
[2017-07-04 12:18] LABS: BLOOD UREA NITROGEN 15 mg/dL (7-17); CARBON DIOXIDE 27 mmol/L (22-30); GFR AFRICAN-AMERICAN > 60
[2017-07-04 12:19] LABS: CALCIUM 9.9 mg/dl (8.6-10.4); GLUCOSE,RANDOM 210 mg/dL (65-105)
--- NOTE | 2017-07-04 13:49 | CP.PCM.PN ---
Subjective - Date & Time of Evaluation Date of Evaluation: 07/04/17 Time of Evaluation: 13:42 - Subjective Subjective: Pt feels better. CXR reports increased markings, possible mild congestion. K 3.3 Objective - Vital Signs/Intake and Output Vital Signs (last 24 hours): Temp Pulse Resp BP Pulse Ox 98.0 F 77 20 134/67 100 07/04/17 08:00 07/04/17 08:00 07/04/17 08:00 07/04/17 08:00 07/04/17 08:00 Intake and Output: 07/04/17 07/04/17 06:59 18:59 Intake Total 500 Output Total 300 Balance 200 - Medications Medications: Current Medications Albuterol (Ventolin Hfa 90 Mcg/Actuation (8 G)) 0 puff INH RQ4 PRN PRN Reason: Shortness of Breath Alprazolam (Xanax) 0.25 mg PO TID PRN PRN Reason: Anxiety Stop: 07/09/17 14:35 Last Admin: 07/03/17 09:56 Dose: 0.25 mg Amlodipine Besylate (Norvasc) 2.5 mg PO DAILY [facility] Last Admin: 07/04/17 10:02 Dose: 2.5 mg Amoxicillin (Amoxil 500 Mg Cap) 1,000 mg PO BID [facility] Last Admin: 07/04/17 09:53 Dose: 1,000 mg Aspirin (Ecotrin) 81 mg PO DAILY [facility] Last Admin: 07/04/17 10:09 Dose: 81 mg Clarithromycin (Biaxin Filmtab) 500 mg PO BID [facility] Last Admin: 07/04/17 09:55 Dose: 500 mg Enoxaparin Sodium (Lovenox) 40 mg SC DAILY [facility] Last Admin: 07/04/17 10:01 Dose: 40 mg Escitalopram Oxalate (Lexapro) 10 mg PO DAILY [facility] Last Admin: 07/04/17 10:01 Dose: 10 mg Ferrous Sulfate (Feosol) 325 mg PO BID [facility] Last Admin: 07/04/17 09:58 Dose: 325 mg Furosemide (Lasix) 20 mg IVP Q12H [facility] Last Admin: 07/04/17 03:35 Dose: 20 mg Glimepiride (Amaryl) 4 mg PO DAILY [facility] Last Admin: 07/04/17 09:53 Dose: 4 mg Home Med (Linagliptin [Tradjenta]) 5 mg PO DAILY [facility] Insulin Aspart (Novolog) 0 unit SC ACHS [facility] PRN Reason: Protocol Last Admin: 07/04/17 12:57 Dose: 2 unit Losartan Potassium (Cozaar) 100 mg PO DAILY [facility] Last Admin: 07/04/17 09:58 Dose: 100 mg Metformin HCl (Glucophage Xr) 750 mg PO BID [facility] Last Admin: 07/04/17 09:59 Dose: 750 mg Montelukast Sodium (Singulair) [address] [facility] Last Admin: 07/03/17 21:48 Dose: 10 mg Nebivolol (Bystolic) 10 mg PO DAILY [facility] Last Admin: 07/04/17 10:21 Dose: 10 mg Pantoprazole Sodium (Protonix Ec Tab) 40 mg PO DAILY [facility] Last Admin: 07/04/17 10:02 Dose: 40 mg Pneumococcal Polyvalent Vaccine (Pneumovax 23 Vaccine) 0.5 ml IM .ONCE ONE Stop: 07/05/17 14:01 Potassium Chloride (K-Dur 20 Meq Er Tab) 40 meq PO DAILY [facility] Last Admin: 07/04/17 10:00 Dose: 40 meq Rosuvastatin Calcium (Crestor) [address] [facility] Last Admin: 07/03/17 21:48 Dose: 5 mg - Labs Labs: 07/03/17 14:19 07/04/17 11:49 PT 15.0 SECONDS (9.7-12.2) H 07/02/17 03:49 INR 1.3 07/02/17 03:49 APTT 27 SECONDS (21-34) 07/02/17 03:49 - Constitutional Appears: Well - Head Exam Head Exam: ATRAUMATIC - Eye Exam Eye Exam: EOMI, Normal appearance Pupil Exam: NORMAL ACCOMODATION - ENT Exam ENT Exam: Mucous Membranes Moist - Respiratory Exam Respiratory Exam: Clear to Ausculation Bilateral - Cardiovascular Exam Cardiovascular Exam: REGULAR RHYTHM - GI/Abdominal Exam GI & Abdominal Exam: Normal Bowel Sounds - Exam External exam: NORMAL EXTERNAL EXAM - Extremities Exam Extremities Exam: Normal Inspection - Back Exam Back Exam: NORMAL INSPECTION - Neurological Exam Neurological Exam: Alert, Normal Gait - Psychiatric Exam Psychiatric exam: Normal Affect, Normal Mood - Skin Skin Exam: Normal Color Assessment and Plan - Assessment and Plan (Free Text) Assessment: 1. In spite of cxr findings, chf has clinically resolved. When asked, pt says that at home she was not taking any med called either lasix, furosemide or torsemide. This may explain her rapid deterioration. I will stop IV lasix give oral torsemide, replace k. 2. Pt will do better with replacement of BiV ICD. The pt was scheduled for this , but her recent GI bleed caused postponement. For this procedure, as it requires a LV lead, the pt will need to have it implanted with Dr Oden of and a cardiothoracic surgeon at [facility]. Dr Oden is aware, and it trying to schedule. I have no answer at this moment.
[2017-07-04] MEDS ORDERED: Potassium Chloride 20 mEq ER Tab PO ONE (14:00)
--- NOTE | 2017-07-04 23:00 | PN ---
DATE: 07/04/2017 SUBJECTIVE: She is not in any cardiopulmonary distress. PHYSICAL EXAMINATION: VITAL SIGNS: Blood pressure is 123/55, temperature 97.6, respiratory rate 20 and pulse 76. HEENT: Pupils equal, reactive to light. Normal-appearing mucosa of the conjunctivae, oropharyngeal and nasal membrane mucosa. NECK: Supple. No JVD. No carotid bruit. No lymph node. No thyromegaly. CHEST AND LUNGS: Bilateral symmetrical expansion. Good air exchange. No rales, no rhonchi. CARDIOVASCULAR SYSTEM: PMI not localized. S1, S2. No additional sounds. ABDOMEN: Normoactive bowel sounds. No tenderness. No organomegaly. No masses. EXTREMITIES: No cyanosis, no clubbing, no edema. CENTRAL NERVOUS SYSTEM: Alert, awake, oriented x2. No neurological deficit could be appreciated. ASSESSMENT: Acute on chronic congestive heart failure, both systolic and diastolic; type 2 diabetes mellitus; hypertension; Helicobacter pylori gastritis and osteoarthritis. Son Sadler MD
[2017-07-05 08:08] VITALS: PULSE 76
[2017-07-05 09:06] LABS: CHLORIDE 103 mmol/L (98-107); SODIUM 140 mmol/L (132-148)
[2017-07-05 09:09] LABS: GFR AFRICAN-AMERICAN > 60
[2017-07-05 09:10] LABS: BLOOD UREA NITROGEN 15 mg/dL (7-17); CALCIUM 9.8 mg/dl (8.6-10.4); CARBON DIOXIDE 28 mmol/L (22-30); GLUCOSE,RANDOM 133 mg/dL (65-105); MAGNESIUM 1.7 mg/dL (1.6-2.3)
[2017-07-05] MEDS: Potassium Chloride 20 mEq ER Tab PO SCH (10:00)
[2017-07-05] MEDS: Pantoprazole 40 mg EC Tab PO SCH (10:34)
[2017-07-05] MEDS: Enoxaparin 40 mg Syringe SC SCH (10:39)
[2017-07-05] MEDS: (Novolog) Insulin Aspart, Recombinant 100 u/ml 10 ml vial SC SCH ×2 (10:40→12:28)
--- NOTE | 2017-07-05 12:49 | CP.PCM.PN ---
Subjective - Date & Time of Evaluation Date of Evaluation: 07/05/17 Time of Evaluation: 12:47 - Subjective Subjective: Pt feels well. Objective - Vital Signs/Intake and Output Vital Signs (last 24 hours): Temp Pulse Resp BP Pulse Ox 98.1 F 76 20 136/67 94 L 07/05/17 08:07 07/05/17 08:07 07/05/17 08:07 07/05/17 08:07 07/05/17 08:07 Intake and Output: 07/05/17 07/05/17 06:59 18:59 Intake Total 800 Output Total 1 Balance 799 - Medications Medications: Current Medications Albuterol (Ventolin Hfa 90 Mcg/Actuation (8 G)) 0 puff INH RQ4 PRN PRN Reason: Shortness of Breath Alprazolam (Xanax) 0.25 mg PO TID PRN PRN Reason: Anxiety Stop: 07/09/17 14:35 Last Admin: 07/03/17 09:56 Dose: 0.25 mg Amlodipine Besylate (Norvasc) 2.5 mg PO DAILY [facility] Last Admin: 07/05/17 10:31 Dose: 2.5 mg Amoxicillin (Amoxil 500 Mg Cap) 1,000 mg PO BID [facility] Last Admin: 07/05/17 10:36 Dose: 1,000 mg Aspirin (Ecotrin) 81 mg PO DAILY [facility] Last Admin: 07/05/17 10:41 Dose: 81 mg Clarithromycin (Biaxin Filmtab) 500 mg PO BID [facility] Last Admin: 07/05/17 10:38 Dose: 500 mg Enoxaparin Sodium (Lovenox) 40 mg SC DAILY [facility] Last Admin: 07/05/17 10:39 Dose: 40 mg Escitalopram Oxalate (Lexapro) 10 mg PO DAILY [facility] Last Admin: 07/05/17 10:41 Dose: 10 mg Ferrous Sulfate (Feosol) 325 mg PO BID [facility] Last Admin: 07/05/17 10:35 Dose: 325 mg Glimepiride (Amaryl) 4 mg PO DAILY [facility] Last Admin: 07/05/17 10:34 Dose: 4 mg Home Med (Linagliptin [Tradjenta]) 5 mg PO DAILY [facility] Insulin Aspart (Novolog) 0 unit SC ACHS [facility] PRN Reason: Protocol Last Admin: 07/05/17 12:28 Dose: 2 unit Losartan Potassium (Cozaar) 100 mg PO DAILY [facility] Last Admin: 07/05/17 10:33 Dose: 100 mg Metformin HCl (Glucophage Xr) 750 mg PO BID [facility] Last Admin: 07/05/17 10:35 Dose: 750 mg Montelukast Sodium (Singulair) 10 mg PO HS [facility] Last Admin: 07/04/17 21:05 Dose: 10 mg Nebivolol (Bystolic) 10 mg PO DAILY [facility] Last Admin: 07/05/17 10:36 Dose: 10 mg Pantoprazole Sodium (Protonix Ec Tab) 40 mg PO DAILY [facility] Last Admin: 07/05/17 10:34 Dose: 40 mg Pneumococcal Polyvalent Vaccine (Pneumovax 23 Vaccine) 0.5 ml IM .ONCE ONE Stop: 07/05/17 14:01 Potassium Chloride (K-Dur 20 Meq Er Tab) 40 meq PO DAILY [facility] Last Admin: 07/05/17 10:00 Dose: 40 meq Rosuvastatin Calcium (Crestor) 5 mg PO HS [facility] Last Admin: 07/04/17 21:05 Dose: 5 mg Torsemide (Demadex) 20 mg PO DAILY [facility] Last Admin: 07/05/17 10:39 Dose: 20 mg - Labs Labs: 07/03/17 14:19 07/05/17 08:27 PT 15.0 SECONDS (9.7-12.2) H 07/02/17 03:49 INR 1.3 07/02/17 03:49 APTT 27 SECONDS (21-34) 07/02/17 03:49 - Constitutional Appears: Well - Head Exam Head Exam: ATRAUMATIC, NORMAL INSPECTION - Eye Exam Eye Exam: EOMI - ENT Exam ENT Exam: Mucous Membranes Moist - Neck Exam Neck Exam: Full ROM - Respiratory Exam Respiratory Exam: NORMAL BREATHING PATTERN - Cardiovascular Exam Cardiovascular Exam: REGULAR RHYTHM - GI/Abdominal Exam GI & Abdominal Exam: Normal Bowel Sounds - Exam External exam: NORMAL EXTERNAL EXAM - Extremities Exam Extremities Exam: Full ROM, Normal Inspection - Neurological Exam Neurological Exam: Alert, Awake - Psychiatric Exam Psychiatric exam: Normal Affect, Normal Mood - Skin Skin Exam: Normal Color Assessment and Plan - Assessment and Plan (Free Text) Assessment: 1. Pt will have her BiV ICD implanted monday AM. 2. CHF has clinically resolved. 3. CV status is stable. 4. CAD stable. 5. K is now normal, 4.0
[2017-07-05] MEDS ORDERED: Pneumococcal 23-Valent Vaccine IM ONE (14:00)
[2017-07-05 16:01] VITALS: BP 110/65; TEMP 97.8; O2SAT 97
--- NOTE | 2017-07-05 17:11 | CP.PCM.PN ---
Subjective - Date & Time of Evaluation Date of Evaluation: 07/05/17 Time of Evaluation: 11:00 - Subjective Subjective: Alert and orientedx3, no sob or edema, NAD. Objective - Vital Signs/Intake and Output Vital Signs (last 24 hours): Temp Pulse Resp BP Pulse Ox 97.8 F 76 20 110/65 97 07/05/17 15:30 07/05/17 15:30 07/05/17 15:30 07/05/17 15:30 07/05/17 15:30 Intake and Output: 07/05/17 07/05/17 06:59 18:59 Intake Total 800 Output Total 1 Balance 799 - Medications Medications: Current Medications Albuterol (Ventolin Hfa 90 Mcg/Actuation (8 G)) 0 puff INH RQ4 PRN PRN Reason: Shortness of Breath Alprazolam (Xanax) 0.25 mg PO TID PRN PRN Reason: Anxiety Stop: 07/09/17 14:35 Last Admin: 07/03/17 09:56 Dose: 0.25 mg Amlodipine Besylate (Norvasc) 2.5 mg PO DAILY [facility] Last Admin: 07/05/17 10:31 Dose: 2.5 mg Amoxicillin (Amoxil 500 Mg Cap) 1,000 mg PO BID [facility] Last Admin: 07/05/17 10:36 Dose: 1,000 mg Aspirin (Ecotrin) 81 mg PO DAILY [facility] Last Admin: 07/05/17 10:41 Dose: 81 mg Clarithromycin (Biaxin Filmtab) 500 mg PO BID [facility] Last Admin: 07/05/17 10:38 Dose: 500 mg Enoxaparin Sodium (Lovenox) 40 mg SC DAILY [facility] Last Admin: 07/05/17 10:39 Dose: 40 mg Escitalopram Oxalate (Lexapro) 10 mg PO DAILY [facility] Last Admin: 07/05/17 10:41 Dose: 10 mg Ferrous Sulfate (Feosol) 325 mg PO BID [facility] Last Admin: 07/05/17 10:35 Dose: 325 mg Glimepiride (Amaryl) 4 mg PO DAILY [facility] Last Admin: 07/05/17 10:34 Dose: 4 mg Home Med (Linagliptin [Tradjenta]) 5 mg PO DAILY [facility] Insulin Aspart (Novolog) 0 unit SC [facility] PRN Reason: Protocol Last Admin: 07/05/17 12:28 Dose: 2 unit Losartan Potassium (Cozaar) 100 mg PO DAILY [facility] Last Admin: 07/05/17 10:33 Dose: 100 mg Metformin HCl (Glucophage Xr) 750 mg PO BID [facility] Last Admin: 07/05/17 10:35 Dose: 750 mg Montelukast Sodium (Singulair) 10 mg PO HS [facility] Last Admin: 07/04/17 21:05 Dose: 10 mg Nebivolol (Bystolic) 10 mg PO DAILY [facility] Last Admin: 07/05/17 10:36 Dose: 10 mg Pantoprazole Sodium (Protonix Ec Tab) 40 mg PO DAILY [facility] Last Admin: 07/05/17 10:34 Dose: 40 mg Potassium Chloride (K-Dur 20 Meq Er Tab) 40 meq PO DAILY [facility] Last Admin: 07/05/17 10:00 Dose: 40 meq Rosuvastatin Calcium (Crestor) 5 mg PO HS [facility] Last Admin: 07/04/17 21:05 Dose: 5 mg Torsemide (Demadex) 20 mg PO DAILY [facility] Last Admin: 07/05/17 10:39 Dose: 20 mg - Labs Labs: 07/03/17 14:19 07/05/17 08:27 PT 15.0 SECONDS (9.7-12.2) H 07/02/17 03:49 INR 1.3 07/02/17 03:49 APTT 27 SECONDS (21-34) 07/02/17 03:49 Assessment and Plan - Assessment and Plan (Free Text) Assessment: Patient is alert and oriented x3, no sob or chest pains noted, no edema. D/W DR Sadler, plan to discharge home today. Patient has appointment at [facility] on Monday for ICD placement as per DR Oden, cleared by DR Stauffer. Advised to follow up with PMD in 1 week.
--- NOTE | 2017-07-05 17:16 | PCM.HF ---
Heart Failure Core Measure - Heart Failure Ejection Fraction: Less Than 40 % (EF IS 35%) GUMARO Inhibitor Prescribed: No Contraindication/Reason for not providing: ON ARB Beta-Víctor Prescribed: Bisoprolol Angiotensin II Receptor Víctor Prescribed: Yes AnticoagulationTherapy for Atrial Fibrillation/Atrialflutter: No Contraindication/Reason for not providing: no abib Aldosterone Antagonist Prescribed: No Contraindication/Reason for not providing: low BP Hydralazine Nitrate Prescribed: No Contraindication/Reason for not providing: on calcium channel víctor Implantable Cardioverter Defibrillator Therapy: No Contraindication/Reason for not providing: plan for ICD this week Cardiac Resynchronization Therapy Prescribed: No Contraindication/Reason for not providing: not indicated - Follow up Will be discharged to: Home Follow Up Date (must be within 7 days from discharge): 07/07/17 Follow Up Time: 09:00
--- NOTE | 2017-07-06 09:50 | DS ---
REASON FOR ADMISSION: This is a 66-year-old female with history of multiple medical problems, who was admitted for exacerbation of congestive heart failure. COURSE OF HOSPITALIZATION: The patient was admitted to medical floor telemetry. She had a cardiology consult done by Dr. Stauffer. The patient was started on diuretics and shortness of breath and symptoms responded well. All the patient+s home medications were resumed. The patient had LifeVest during this hospitalization, as the patient did not have ICD at this point. The patient was scheduled to have biventricular pacer and ICD placed on 07/07/2017. The patient was discharged home to continue diuretics and to report to [facility] on 07/07/2017 for pacemaker and ICD placement. FINAL DIAGNOSES: 1. Exacerbation of congestive heart failure, acute on top of chronic, both systolic and diastolic. 2. Hypertension. 3. Type 2 diabetes mellitus. Adán MD [facility]
== END 2017-07-05 17:21 | disposition home or self-care (01) | DRG 292 ==
LOC: C.ER 03:29 → C.9E 04:30 → C.6T 22:22 → C.5S 07-03 00:35
PROVIDERS: ADMIT Internal Medicine; ATTEND Internal Medicine
DX: I11.0 Hypertensive heart disease with heart failure (principal); I87.1 Compression of vein; T82.110A Breakdown (mechanical) of cardiac electrode, initial encounter; Z95.1 Presence of aortocoronary bypass graft; E11.9 Type 2 diabetes mellitus without complications; D64.9 Anemia, unspecified; I25.10 Atherosclerotic heart disease of native coronary artery without angina pectoris; J45.909 Unspecified asthma, uncomplicated; I50.43 Acute on chronic combined systolic (congestive) and diastolic (congestive) heart failure; K29.70 Gastritis, unspecified, without bleeding; Z79.4 Long term (current) use of insulin; Y71.2 Prosthetic and other implants, materials and accessory cardiovascular devices associated with adverse incidents; Z87.891 Personal history of nicotine dependence; Z95.5 Presence of coronary angioplasty implant and graft

== ENCOUNTER 2017-09-21 07:15 | Day surgery (SDC) | payer MEDICARE, MEDICAID ==
[2017-09-21 08:26] VITALS: TEMP 97.5
[2017-09-21 10:01] VITALS: BP 123/43; PULSE 74; RESP 21; O2SAT 99
== END 2017-09-21 10:12 | disposition home or self-care (01) ==
LOC: C.ENDO 07:15
PROVIDERS: ATTEND Internal Medicine Gastroenterology
DX: Z12.11 Encounter for screening for malignant neoplasm of colon (principal); Z86.010 Personal history of colon polyps; Z53.09 Procedure and treatment not carried out because of other contraindication; E11.9 Type 2 diabetes mellitus without complications; I11.0 Hypertensive heart disease with heart failure; I50.9 Heart failure, unspecified; E78.5 Hyperlipidemia, unspecified; I25.10 Atherosclerotic heart disease of native coronary artery without angina pectoris; Z95.5 Presence of coronary angioplasty implant and graft; Z95.810 Presence of automatic (implantable) cardiac defibrillator; Z79.899 Other long term (current) drug therapy; Z79.4 Long term (current) use of insulin; Z79.84 Long term (current) use of oral hypoglycemic drugs; Z79.82 Long term (current) use of aspirin

== ENCOUNTER 2017-09-28 06:52 | Day surgery (SDC) | payer MEDICARE, MEDICAID ==
[2017-09-28] MEDS ORDERED: Propofol 10 mg/ml Inj (20 ML) ONE (09:24)
[2017-09-28] MEDS ORDERED: Etomidate 20 mg/10ml Inj IV ONE ×2 (09:24→09:43)
[2017-09-28] MEDS ORDERED: Lidocaine Hydrochloride 5 ML INJ ONE (09:24)
[2017-09-28] MEDS ORDERED: ePHEDrine 50 mg/ml Inj ONE (09:33)
[2017-09-28 10:11] VITALS: TEMP 98
[2017-09-28 10:21] VITALS: O2SAT 100
[2017-09-28 11:09] VITALS: BP 116/41; PULSE 70; RESP 18
== END 2017-09-28 11:08 | disposition home or self-care (01) ==
LOC: C.ENDO 06:52
PROVIDERS: ATTEND Internal Medicine Gastroenterology
DX: K57.90 Diverticulosis of intestine, part unspecified, without perforation or abscess without bleeding (principal); Z86.010 Personal history of colon polyps; K64.8 Other hemorrhoids; D12.6 Benign neoplasm of colon, unspecified
CPT/HCPCS: 45380; 82948; 88305; J2405; J2704

== ENCOUNTER 2017-10-19 09:44 | Inpatient (IN) | payer MEDICARE, MEDICAID ==
[2017-10-19 09:45] VITALS: BMI 35.2
[2017-10-19] MEDS ORDERED: Sodium Chloride 0.9% 500 ML IV STA (11:05)
--- NOTE | 2017-10-19 11:18 | C.PDOC ---
Time Seen by Provider: 10/19/17 10:03 Chief Complaint (Nursing): Abnormal Labs Past Medical History Vital Signs: Last Vital Signs Temp 98.6 F 10/19/17 10:08 Pulse 92 H 10/19/17 10:08 Resp 18 10/19/17 10:08 BP 102/56 L 10/19/17 10:08 Pulse Ox 98 10/19/17 10:08 - Medical History PMH: Anxiety, Arthritis, Asthma, Cardia Arrhythmia, CHF, HTN, Hypercholesterolemia Denies: Chronic Kidney Disease Surgical History: Cholecystectomy, Coronary Stent (3), Endoscopy, Pacemaker - [facility] Procedures (06/18/17) (06/18/17) EXCISION OF ASCENDING COLON, ENDO (06/18/17) EXCISION OF SIGMOID COLON, ENDO (06/18/17) EXCISION OF TRANSVERSE COLON, ENDO (06/18/17) TRANSFUSE NONAUT RED BLOOD CELLS IN PERIPH VEIN, PERC (06/18/17) Family History: States: Unknown Family Hx - Social History Hx Alcohol Use: No Hx Substance Use: No - Immunization History Hx Tetanus Toxoid Vaccination: No Hx Influenza Vaccination: No Hx Pneumococcal Vaccination: No ED Course And Treatment O2 Sat by Pulse Oximetry: 98 Disposition - Disposition
--- NOTE | 2017-10-19 11:29 | C.PDOC ---
History Of Present Illness 66 y/o female presents to the ER c/o generalized weakness and tiredness for the last few days. Patient states that she has h/o anemia.She reports that she was seen by GI and had colonoscopy 1 month ago. Patient notes she was seen by her PMD yesterday and had a phone call from him this morning to come to ED for the blood transfusion. Time Seen by Provider: 10/19/17 10:03 Chief Complaint (Nursing): Abnormal Labs History Per: Patient History/Exam Limitations: no limitations Onset/Duration Of Symptoms: Days Current Symptoms Are (Timing): Still Present Severity: Moderate Past Medical History Reviewed: Historical Data, Nursing Documentation, Vital Signs Vital Signs: Last Vital Signs Temp 98.4 F 10/19/17 18:11 Pulse 87 10/19/17 18:11 Resp 16 10/19/17 18:11 BP 155/66 H 10/19/17 18:11 Pulse Ox 98 10/19/17 16:00 - Medical History PMH: Anxiety, Arthritis, Asthma, Cardia Arrhythmia, CHF, HTN, Hypercholesterolemia Denies: Chronic Kidney Disease Surgical History: Cholecystectomy, Coronary Stent (3), Endoscopy, Pacemaker - [facility] Procedures (06/18/17) (06/18/17) EXCISION OF ASCENDING COLON, ENDO (06/18/17) EXCISION OF SIGMOID COLON, ENDO (06/18/17) EXCISION OF TRANSVERSE COLON, ENDO (06/18/17) TRANSFUSE NONAUT RED BLOOD CELLS IN PERIPH VEIN, PERC (06/18/17) Family History: States: Unknown Family Hx - Social History Hx Alcohol Use: No Hx Substance Use: No - Immunization History Hx Tetanus Toxoid Vaccination: No Hx Influenza Vaccination: No Hx Pneumococcal Vaccination: No Review Of Systems Except As Marked, All Systems Reviewed And Found Negative. Constitutional: Positive for: Weakness. Negative for: Fever, Chills Physical Exam - Physical Exam Appears: Non-toxic, No Acute Distress, Other (pale) Skin: Normal Color, Warm Head: Atraumatic, Normacephalic Eye(s): bilateral: Normal Inspection Nose: Normal Oral Mucosa: Moist Neck: Supple Chest: Symmetrical Cardiovascular: Rhythm Regular Respiratory: Normal Breath Sounds, No Accessory Muscle Use, No Rales, No Rhonchi , No Wheezing Extremity: Normal ROM Neurological/Psych: Oriented x3, Normal Speech, Normal Motor, Normal Sensation ED Course And Treatment - Laboratory Results Result Diagrams: 10/19/17 11:48 10/19/17 11:48 O2 Sat by Pulse Oximetry: 98 (RA) Pulse Ox Interpretation: Normal - Other Rad CXR X-Ray: Viewed By Me, Read By Radiologist Interpretation: HISTORY: anemia. COMPARISON: Chest x-ray performed 07/03/17. TECHNIQUE: Chest, one view. FINDINGS: Examination limited by habitus. LUNGS: Mild venous congestion. No focal consolidation. Please note that chest x-ray has limited sensitivity for the detection of pulmonary masses. PLEURA: No significant pleural effusion identified. No definite pneumothorax . CARDIOVASCULAR: Cardiomegaly. Median sternotomy wires with evidence of CABG. Left-sided AICD. OSSEOUS STRUCTURES: No acute osseous abnormality identified. VISUALIZED UPPER ABDOMEN: Unremarkable. OTHER FINDINGS: None. IMPRESSION: Cardiomegaly. Mild venous congestion. Progress Note: Labs and blood transfusion ordered. Case was d/w pt's PMD who accepted patient for tele observation. Disposition - Disposition Disposition: HOSPITALIZED Disposition Time: 12:39 Condition: FAIR - Clinical Impression Clinical Impression: Symptomatic anemia - PA / [employer] / Resident Statement MD/DO has reviewed & agrees with the documentation as recorded. - Scribe Statement The provider has reviewed the documentation as recorded by the Dianelysibe Kam Poli Provider Attestation All medical record entries made by the Scribe were at my direction and personally dictated by me. I have reviewed the chart and agree that the record accurately reflects my personal performance of the history, physical exam, medical decision making, and the department course for this patient. I have also personally directed, reviewed, and agree with the discharge instructions and disposition. Decision To Admit - Pt Status Changed To: Hospital Disposition Of: Observation - . Bed Request Type: Telemetry Admitting Physician: Son Sadler Patient Diagnosis: Symptomatic anemia
--- NOTE | 2017-10-19 11:41 | RAD ---
HISTORY: anemia COMPARISON: Chest x-ray performed 07/03/17 TECHNIQUE: Chest, one view. FINDINGS: Examination limited by habitus. LUNGS: Mild venous congestion. No focal consolidation. Please note that chest x-ray has limited sensitivity for the detection of pulmonary masses. PLEURA: No significant pleural effusion identified. No definite pneumothorax . CARDIOVASCULAR: Cardiomegaly. Median sternotomy wires with evidence of CABG. Left-sided AICD. OSSEOUS STRUCTURES: No acute osseous abnormality identified. VISUALIZED UPPER ABDOMEN: Unremarkable. OTHER FINDINGS: None. IMPRESSION: Cardiomegaly. Mild venous congestion.
[2017-10-19 11:54] LABS: BASO # 0.1 K/uL (0.0-0.2); BASO % 0.6 % (0.0-2.0); EOS # 0.1 K/uL (0.0-0.7); EOS % 0.9 % (0.0-4.0); LYMPH # 1.7 K/uL (1.0-4.3); LYMPH % 18.2 % (20.0-40.0); MEAN CELL VOLUME 79.2 fL (81.0-99.0); MEAN CORPUSCULAR HEMOGLOBIN 25.2 pg (27.0-31.0); MEAN CORPUSCULAR HGB CONC 31.8 g/dL (33.0-37.0); MEAN PLATELET VOLUME 9.9 fL (7.2-11.7); MONO # 0.6 K/uL (0.0-0.8); MONO % 5.8 % (0.0-10.0); NEUT # 7.1 K/uL (1.8-7.0); NEUT % 74.5 % (50.0-75.0); RBC 2.25 Mil/uL (3.80-5.20); WHITE BLOOD COUNT 9.6 K/uL (4.8-10.8)
[2017-10-19 11:59] LABS: HEMOGLOBIN 5.7 g/dL (11.0-16.0); SQUAMOUS EPITHIAL 7 /hpf (0-5); URINE BILIRUBIN NEGATIVE (NEGATIVE); URINE BLOOD NEGATIVE (NEGATIVE); URINE CLARITY Hazy (Clear); URINE COLOR Yellow (YELLOW); URINE GLUCOSE (UA) NORMAL (Normal); URINE LEUKOCYTE ESTERASE NEG Leu/uL (Negative); URINE NITRATE NEGATIVE (NEGATIVE); URINE PROTEIN 2+ mg/dL (NEGATIVE)
[2017-10-19 12:08] LABS: ALB/GLOB RATIO 0.9 (1.0-2.1); ALBUMIN 3.5 g/dL (3.5-5.0); ALT/SGPT 13 U/L (9-52); AST/SGOT 25 U/L (14-36); BLOOD UREA NITROGEN 15 mg/dL (7-17); CALCIUM 8.9 mg/dl (8.6-10.4); GFR AFRICAN-AMERICAN > 60; GFR NON-AFRICAN AMERICAN > 60; INR 1.3; PROTHROMBIN TIME 14.1 SECONDS (9.7-12.2)
[2017-10-19] MEDS ORDERED: Piperacillin/Tazobact 3.375 gm 100 ML IV STA (12:22)
[2017-10-19 13:26] LABS: IRON 12 ug/dL (37-170)
[2017-10-19 13:35] LABS: % IRON SATURATION 3 (20-55); TOTAL IRON BINDING CAPACITY 408 ug/dL (250-450)
--- NOTE | 2017-10-19 17:22 | CP.PCM.CON ---
<Carter Espino - Last Filed: 10/19/17 18:11> History of Present Illness - History of Present Illness History of Present Illness: PGY5 GI Fellow Consult Note Patient is a 66 year old female with PMHx significant for CAD s/p CABGx3, HTN, DM, anemia, history of colon polyps and H pylori gastritis who presents to the hospital for abnormal blood work. She states that 4 days OWNER, she awoke feeling very fatigued. On walking to her bathroom she noticed she was profoundly short of breath and called her PCP who saw her in the office yesterday and did routine blood work. Patient was found to have anemia with HGB 5.7, down from 10.4 on 09/11/17. She denies any overt bleeding such as melena, hematochezia, hematemesis, hematuria. Denies any sick contacts, recent illnesses, new medications or use of OTC medications or supplements. She is not on any anticoagulation and uses only ASA 81mg PO QD for antiplatelet coverage. No prior hematologic work up. The patient has had two colonoscopies and an endoscopy since June 2017. She has been transfused one unit since arrival and already feels better. PMHx: See HPI PSHx: CABGx3, Defibrillator, Cholecystectomy, tubal ligation FHx: Father - CAD/[place]; Mother - unknown cancer; Brother - CAD; Sister - Breast cancer Social: Former smoker (>20 years ago), denies EtOH or illicit drug use Endo: Colon -09/2017 - Appendiceal orifice polyp with focal adenomatous changes EGD/Colon - 06/2017 - H pylori positive gastritis, 3 tubular adenomas 12 system ROS performed and negative except where stated. Past Patient History - Infectious Disease Hx of Infectious Diseases: None - Past Medical History & Family History Past Medical History?: Yes - Past Social History Smoking Status: Former Smoker - CARDIAC Hx Cardia Arrhythmia: Yes Hx Congestive Heart Failure: Yes Hx Hypercholesterolemia: Yes Hx Hypertension: Yes Hx Pacemaker: Yes - PULMONARY Hx Asthma: Yes - NEUROLOGICAL Hx Neurological Disorder: No - HEENT Hx HEENT Problems: Yes Hx Cataracts: Yes - RENAL Hx Chronic Kidney Disease: No - ENDOCRINE/METABOLIC Hx Endocrine Disorders: Yes Hx Diabetes Mellitus Type 1: Yes - HEMATOLOGICAL/ONCOLOGICAL Hx Blood Disorders: No - INTEGUMENTARY Hx Dermatological Problems: No - MUSCULOSKELETAL/RHEUMATOLOGICAL Hx Arthritis: Yes - GASTROINTESTINAL Hx Gastrointestinal Disorders: Yes Other/Comment: DARK STOOL - GENITOURINARY/GYNECOLOGICAL Hx Genitourinary Disorders: No - PSYCHIATRIC Hx Anxiety: Yes Hx Substance Use: No - SURGICAL HISTORY Hx Cholecystectomy: Yes Hx Coronary Stent: Yes (3) - ANESTHESIA Hx Anesthesia: Yes Hx Anesthesia Reactions: No Hx Malignant Hyperthermia: No Meds Allergies/Adverse Reactions: Allergies Allergy/AdvReac Type Severity Reaction Status Date / Time No Known Allergies Allergy Verified 10/19/17 10:14 - Medications Medications: Current Medications Alprazolam (Xanax) 0.25 mg PO TID PRN PRN Reason: Anxiety Stop: 10/26/17 17:09 Amlodipine Besylate (Norvasc) 2.5 mg PO DAILY [facility] Escitalopram Oxalate (Lexapro) 10 mg PO DAILY [facility] Ferric Sodium Gluconate Complex (Ferrlecit) 125 mg IVPB DAILY [facility] Stop: 10/25/17 10:01 Furosemide (Lasix) 40 mg PO DAILY [facility] Glimepiride (Amaryl) 4 mg PO BID [facility] Home Med (Linagliptin [Tradjenta]) 5 mg PO DAILY [facility] Home Med (Pravastatin Sodium [Pravachol]) 40 mg PO HS [facility] Insulin Aspart (Novolog) 0 unit SC ACHS [facility] PRN Reason: Protocol Losartan Potassium (Cozaar) 100 mg PO DAILY [facility] Metformin HCl (Glucophage Xr) 750 mg PO BID [facility] Montelukast Sodium (Singulair) 10 mg PO HS [facility] Nebivolol (Bystolic) 10 mg PO DAILY [facility] Pantoprazole Sodium (Protonix Inj) 40 mg IVP DAILY [facility] Physical Exam - Constitutional Appears: Non-toxic, No Acute Distress, Other (obese) - Eye Exam Eye Exam: EOMI, PERRL - ENT Exam ENT Exam: Mucous Membranes Moist - Respiratory Exam Respiratory Exam: Clear to Auscultation Bilateral. absent: Rales, Rhonchi, Wheezes - Cardiovascular Exam Cardiovascular Exam: RRR, +S1, +S2 - GI/Abdominal Exam GI & Abdominal Exam: Normal Bowel Sounds, Soft. absent: Distended, Firm, Guarding, Organomegaly, Rigid, Tenderness - Extremities Exam Extremities exam: Positive for: normal inspection. Negative for: pedal edema - Neurological Exam Neurological exam: Alert, Oriented x3 - Psychiatric Exam Psychiatric exam: Normal Affect, Normal Mood - Skin Skin Exam: Dry, Warm Results - Vital Signs Recent Vital Signs: Last Vital Signs Temp 98.0 F 10/19/17 17:11 Pulse 87 10/19/17 17:11 Resp 16 10/19/17 17:11 BP 147/71 10/19/17 17:11 Pulse Ox 100 10/19/17 14:45 - Labs Result Diagrams: 10/19/17 11:48 10/19/17 11:48 Labs: Laboratory Results - last 24 hr 10/19/17 10/19/17 10/19/17 11:48 11:48 11:48 WBC 9.6 RBC 2.25 L Hgb 5.7 L* D Hct 17.8 L MCV 79.2 L D MCH 25.2 L MCHC 31.8 L RDW 17.0 H Plt Count 136 MPV 9.9 Neut % (Auto) 74.5 Lymph % (Auto) 18.2 L Fountain % (Auto) 5.8 Eos % (Auto) 0.9 Baso % (Auto) 0.6 Neut # (Auto) 7.1 H Lymph # (Auto) 1.7 Fountain # (Auto) 0.6 Eos # (Auto) 0.1 Baso # (Auto) 0.1 Retic Count PT 14.1 H INR 1.3 APTT 28 Sodium Potassium Chloride Carbon Dioxide Anion Gap BUN Creatinine Est GFR ( Amer) Est GFR (Non-Af Amer) Random Glucose Calcium Iron TIBC % Saturation Total Bilirubin AST ALT Alkaline Phosphatase Total Protein Albumin Globulin Albumin/Globulin Ratio Urine Color Yellow Urine Clarity Hazy Urine pH 6.0 Ur Specific Pierre 1.017 Urine Protein 2+ H Urine Glucose (UA) Normal Urine Ketones Negative Urine Blood Negative Urine Nitrate Negative Urine Bilirubin Negative Urine Urobilinogen 2.0 H Ur Leukocyte Esterase Neg Urine WBC (Auto) 3 Urine RBC (Auto) < 1 Ur Squamous Epith Cells 7 H Blood Type Antibody Screen 10/19/17 10/19/17 10/19/17 11:48 11:48 12:55 WBC RBC Hgb Hct MCV MCH MCHC RDW Plt Count MPV Neut % (Auto) Lymph % (Auto) Fountain % (Auto) Eos % (Auto) Baso % (Auto) Neut # (Auto) Lymph # (Auto) Fountain # (Auto) Eos # (Auto) Baso # (Auto) Retic Count 3.8 H PT INR APTT Sodium 139 Potassium 4.2 Chloride 104 Carbon Dioxide 27 Anion Gap 12 BUN 15 Creatinine 0.6 L Est GFR ( Amer) > 60 Est GFR (Non-Af Amer) > 60 Random Glucose 170 H Calcium 8.9 Iron TIBC % Saturation Total Bilirubin 0.5 AST 25 ALT 13 Alkaline Phosphatase 90 Total Protein 7.6 Albumin 3.5 Globulin 4.1 H Albumin/Globulin Ratio 0.9 L Urine Color Urine Clarity Urine pH Ur Specific Pierre Urine Protein Urine Glucose (UA) Urine Ketones Urine Blood Urine Nitrate Urine Bilirubin Urine Urobilinogen Ur Leukocyte Esterase Urine WBC (Auto) Urine RBC (Auto) Ur Squamous Epith Cells Blood Type O POSITIVE Antibody Screen Negative 10/19/17 12:55 WBC RBC Hgb Hct MCV MCH MCHC RDW Plt Count MPV Neut % (Auto) Lymph % (Auto) Fountain % (Auto) Eos % (Auto) Baso % (Auto) Neut # (Auto) Lymph # (Auto) Fountain # (Auto) Eos # (Auto) Baso # (Auto) Retic Count PT INR APTT Sodium Potassium Chloride Carbon Dioxide Anion Gap BUN Creatinine Est GFR ( Amer) Est GFR (Non-Af Amer) Random Glucose Calcium Iron 12 L TIBC 408 % Saturation 3 L Total Bilirubin AST ALT Alkaline Phosphatase Total Protein Albumin Globulin Albumin/Globulin Ratio Urine Color Urine Clarity Urine pH Ur Specific Pierre Urine Protein Urine Glucose (UA) Urine Ketones Urine Blood Urine Nitrate Urine Bilirubin Urine Urobilinogen Ur Leukocyte Esterase Urine WBC (Auto) Urine RBC (Auto) Ur Squamous Epith Cells Blood Type Antibody Screen Assessment & Plan - Assessment and Plan (Free Text) Assessment: Patient is a 66 year old female with PMHx significant for CAD s/p CABGx3, HTN, DM, anemia, history of colon polyps and H pylori gastritis who presents to the hospital for abnormal blood work with HGB 5.7 -Microcytic iron deficiency anemia Plan: -S/P 1 unit PRBC, 2nd transfusion running now -S/P recent colonoscopy with small polyp in AO which showed adenomatous changes ; previously had EGD/colonoscopy as described in HPI -No masses, bleeding lesions noted in entire GI tract examined endoscopically - small bowel pathology unremarkable from EGD biopsies -Check CT A/P with PO/IV contrast R/O any occult lesions/fluid collections -Recommend hematology evaluation in setting of ongoing anemia -FOBT can be falsely-positive in the setting of iron supplementation -May benefit from outpatient capsule study -Diet as tolerated -Plan per findings - Date & Time Date: 10/19/17 Time: 18:11 <Moo Davis - Last Filed: 10/19/17 18:22> Meds - Medications Medications: Current Medications Alprazolam (Xanax) 0.25 mg PO TID PRN PRN Reason: Anxiety Stop: 10/26/17 17:09 Amlodipine Besylate (Norvasc) 2.5 mg PO DAILY [facility] Escitalopram Oxalate (Lexapro) 10 mg PO DAILY [facility] Ferric Sodium Gluconate Complex (Ferrlecit) 125 mg IVPB DAILY [facility] Stop: 10/25/17 10:01 Furosemide (Lasix) 40 mg PO DAILY [facility] Glimepiride (Amaryl) 4 mg PO BID [facility] Home Med (Linagliptin [Tradjenta]) 5 mg PO DAILY [facility] Insulin Aspart (Novolog) 0 unit SC ACHS [facility] PRN Reason: Protocol Losartan Potassium (Cozaar) 100 mg PO DAILY [facility] Metformin HCl (Glucophage Xr) 750 mg PO BID [facility] Montelukast Sodium (Singulair) 10 mg PO HS [facility] Nebivolol (Bystolic) 10 mg PO DAILY [facility] Pantoprazole Sodium (Protonix Inj) 40 mg IVP DAILY [facility] Rosuvastatin Calcium (Crestor) 5 mg PO HS [facility] Results - Vital Signs Recent Vital Signs: Last Vital Signs Temp 98.4 F 10/19/17 18:11 Pulse 87 10/19/17 18:11 Resp 16 10/19/17 18:11 BP 155/66 H 10/19/17 18:11 Pulse Ox 100 10/19/17 14:45 - Labs Result Diagrams: 10/19/17 11:48 10/19/17 11:48 Labs: Laboratory Results - last 24 hr 10/19/17 10/19/17 10/19/17 11:48 11:48 11:48 WBC 9.6 RBC 2.25 L Hgb 5.7 L* D Hct 17.8 L MCV 79.2 L D MCH 25.2 L MCHC 31.8 L RDW 17.0 H Plt Count 136 MPV 9.9 Neut % (Auto) 74.5 Lymph % (Auto) 18.2 L Fountain % (Auto) 5.8 Eos % (Auto) 0.9 Baso % (Auto) 0.6 Neut # (Auto) 7.1 H Lymph # (Auto) 1.7 Fountain # (Auto) 0.6 Eos # (Auto) 0.1 Baso # (Auto) 0.1 Retic Count PT 14.1 H INR 1.3 APTT 28 Sodium Potassium Chloride Carbon Dioxide Anion Gap BUN Creatinine Est GFR ( Amer) Est GFR (Non-Af Amer) Random Glucose Calcium Iron TIBC % Saturation Total Bilirubin AST ALT Alkaline Phosphatase Total Protein Albumin Globulin Albumin/Globulin Ratio Urine Color Yellow Urine Clarity Hazy Urine pH 6.0 Ur Specific Pierre 1.017 Urine Protein 2+ H Urine Glucose (UA) Normal Urine Ketones Negative Urine Blood Negative Urine Nitrate Negative Urine Bilirubin Negative Urine Urobilinogen 2.0 H Ur Leukocyte Esterase Neg Urine WBC (Auto) 3 Urine RBC (Auto) < 1 Ur Squamous Epith Cells 7 H Blood Type Antibody Screen 10/19/17 10/19/17 10/19/17 11:48 11:48 12:55 WBC RBC Hgb Hct MCV MCH MCHC RDW Plt Count MPV Neut % (Auto) Lymph % (Auto) Fountain % (Auto) Eos % (Auto) Baso % (Auto) Neut # (Auto) Lymph # (Auto) Fountain # (Auto) Eos # (Auto) Baso # (Auto) Retic Count 3.8 H PT INR APTT Sodium 139 Potassium 4.2 Chloride 104 Carbon Dioxide 27 Anion Gap 12 BUN 15 Creatinine 0.6 L Est GFR ( Amer) > 60 Est GFR (Non-Af Amer) > 60 Random Glucose 170 H Calcium 8.9 Iron TIBC % Saturation Total Bilirubin 0.5 AST 25 ALT 13 Alkaline Phosphatase 90 Total Protein 7.6 Albumin 3.5 Globulin 4.1 H Albumin/Globulin Ratio 0.9 L Urine Color Urine Clarity Urine pH Ur Specific Pierre Urine Protein Urine Glucose (UA) Urine Ketones Urine Blood Urine Nitrate Urine Bilirubin Urine Urobilinogen Ur Leukocyte Esterase Urine WBC (Auto) Urine RBC (Auto) Ur Squamous Epith Cells Blood Type O POSITIVE Antibody Screen Negative 10/19/17 12:55 WBC RBC Hgb Hct MCV MCH MCHC RDW Plt Count MPV Neut % (Auto) Lymph % (Auto) Fountain % (Auto) Eos % (Auto) Baso % (Auto) Neut # (Auto) Lymph # (Auto) Fountain # (Auto) Eos # (Auto) Baso # (Auto) Retic Count PT INR APTT Sodium Potassium Chloride Carbon Dioxide Anion Gap BUN Creatinine Est GFR ( Amer) Est GFR (Non-Af Amer) Random Glucose Calcium Iron 12 L TIBC 408 % Saturation 3 L Total Bilirubin AST ALT Alkaline Phosphatase Total Protein Albumin Globulin Albumin/Globulin Ratio Urine Color Urine Clarity Urine pH Ur Specific Pierre Urine Protein Urine Glucose (UA) Urine Ketones Urine Blood Urine Nitrate Urine Bilirubin Urine Urobilinogen Ur Leukocyte Esterase Urine WBC (Auto) Urine RBC (Auto) Ur Squamous Epith Cells Blood Type Antibody Screen Attending/Attestation - Attestation I have personally seen and examined this patient.: Yes I have fully participated in the care of the patient.: Yes I have reviewed all pertinent clinical information: Yes Notes (Text): 10/19/17 18:14 I have seen and examined patient with GI fellow. Agree with above documentation with the following additions. In brief, this is a 66 year old female with history of CAD/CABG, CHF s/p ICD, DM, HTN, chronic anemia who was sent to hospital by PMD after noting profound anemia on outpatient bloodwork. She had complained of progressive dyspnea on minimal exertion with even a few steps over the past four days. She denies abdominal pain, nausea, vomiting, diarrhea, fever/chills, weight loss, rectal bleeding, or change in bowel habits. She does report ongoing dark colored stool, though she is on iron supplementation. She had a recent colonoscopy last month which showed adenomatous polyp, scattered diverticulosis, suboptimal bowel preparation. She had an EGD in June 2017 which showed helicobacter pylori associated gastritis. Review of vitals from today are normal. CAD/CABG CHF s/p ICD DM / HTN Symptomatic iron deficiency anemia - Diet as tolerated - Patient currently receiving PRBC transfusion, continue to monitor H/H - Will obtain CT imaging of abdomen/pelvis given significant drop in hemoglobin over past one month without obvious overt bleeding source - Suggest hematology evaluation with hemolysis workup (LDH, haptoglobin, retic count) - Patient would also benefit from repeat colonoscopy evaluation given prior suboptimal bowel preparation. If workup remains negative, would also consider small bowel capsule endoscopy which would be performed as outpatient. - Will continue to monitor patient clinical course
[2017-10-19] MEDS: (Novolog) Insulin Aspart, Recombinant 100 u/ml 10 ml vial SC SCH (22:13)
--- NOTE | 2017-10-20 01:45 | HP ---
HISTORY OF PRESENT ILLNESS: This is a 66-year-old female with history of multiple medical problems presented to emergency room with symptoms of generalized weakness and easy fatigability. The patient had a blood test done on the day of admission as an outpatient and found that hemoglobin is 5.9. The patient denied to have any symptoms suggestive of any GI or blood loss. The patient recently had a colonoscopy about a month ago that was unremarkable. The patient denied to have any abdominal pain. Positive symptoms of exertional shortness of breath. The patient was evaluated in emergency room and she was admitted for further management. Other review of systems negative. ALLERGIES: NO KNOWN ALLERGIES. MEDICATIONS: As per MAR. PAST MEDICAL HISTORY: Hypertension, type 2 diabetes mellitus, congestive heart failure status post pacemaker placement. SOCIAL HISTORY: No history of smoking, EtOH or substance abuse. FAMILY HISTORY: Not contributory. PHYSICAL EXAMINATION: GENERAL: The patient is in bed comfortable at the time of this examination with no cardiopulmonary distress. VITAL SIGNS: Blood pressure is 155/66, temperature 98.4, respiratory rate 16 and pulse 87. HEENT: Pupils equal, reactive to light. Normal appearing mucosa of the conjunctivae, oropharynx and nasal membrane mucosa. NECK: Supple. No JVD. No carotid bruit. No lymph node. No thyromegaly. CHEST AND LUNGS: Bilateral symmetrical expansion with good air exchange. No rales, no rhonchi. CARDIOVASCULAR SYSTEM: PMI not localized. S1, S2. No additional sounds. ABDOMEN: Normoactive bowel sounds. No tenderness. No organomegaly. No masses. EXTREMITIES: No cyanosis, no clubbing, no edema. CHANGE OF ADDRESS CLERK: Alert, awake, oriented x3. No neurological deficit could be appreciated. LABORATORY DATA: Blood work done in the emergency room found that hemoglobin is 5.7, hematocrit 17.8 and a retic count 3.8. ASSESSMENT: 1. Severe symptomatic anemia with no apparent source of gastrointestinal or genitourinary blood loss. 2. Hypertension. 3. Congestive heart failure. 4. Type 2 diabetes mellitus. PLAN: We will get a hematology consult and follow up GI recommendations. Transfuse 2 units of packed RBCs, do Accu-Cheks with insulin coverage. Resume the patient's home medications. Sameh MD [facility] # [id number]
[2017-10-20] MEDS: (Novolog) Insulin Aspart, Recombinant 100 u/ml 10 ml vial SC SCH ×4 (07:41→21:50)
--- NOTE | 2017-10-20 07:53 | CP.PCM.PN ---
<Carter Espino - Last Filed: 10/20/17 07:49> Subjective - Date & Time of Evaluation Date of Evaluation: 10/20/17 Time of Evaluation: 06:45 - Subjective Subjective: PGY5 GI Fellow Progress Note Patient seen and examined bedside this morning. The patient states that she is feeling much better following her blood transfusions. Denies any issues this morning. Specifically, denies any nausea, vomiting, hematochezia, abdominal pain , SOB, fatigue. 12 system ROS performed and negative except where stated. Objective - Vital Signs/Intake and Output Vital Signs (last 24 hours): Temp Pulse Resp BP Pulse Ox 98.6 F 115 H 20 119/59 L 94 L 10/19/17 23:55 10/20/17 00:18 10/19/17 23:55 10/19/17 23:55 10/20/17 04:12 Intake and Output: 10/20/17 10/20/17 06:59 18:59 Intake Total 445 Balance 445 - Medications Medications: Current Medications Alprazolam (Xanax) 0.25 mg PO TID PRN PRN Reason: Anxiety Stop: 10/26/17 17:09 Last Admin: 10/20/17 01:22 Dose: 0.25 mg Amlodipine Besylate (Norvasc) 2.5 mg PO DAILY [facility] Last Admin: 10/19/17 20:26 Dose: 2.5 mg Escitalopram Oxalate (Lexapro) 10 mg PO DAILY [facility] Ferric Sodium Gluconate Complex (Ferrlecit) 125 mg IVPB DAILY [facility] Stop: 10/25/17 10:01 Furosemide (Lasix) 40 mg PO DAILY [facility] Glimepiride (Amaryl) 4 mg PO BID [facility] Last Admin: 10/19/17 20:26 Dose: 4 mg Home Med (Patient's Own Medication) 1 tab PO DAILY [facility] Insulin Aspart (Novolog) 0 unit SC ACHS [facility] PRN Reason: Protocol Last Admin: 10/20/17 07:41 Dose: Not Given Losartan Potassium (Cozaar) 100 mg PO DAILY [facility] Last Admin: 10/19/17 20:26 Dose: 100 mg Metformin HCl (Glucophage Xr) 750 mg PO BID [facility] Last Admin: 10/19/17 19:45 Dose: Not Given Montelukast Sodium (Singulair) 10 mg PO HS [facility] Last Admin: 10/19/17 22:12 Dose: 10 mg Nebivolol (Bystolic) 10 mg PO DAILY [facility] Pantoprazole Sodium (Protonix Inj) 40 mg IVP DAILY [facility] Last Admin: 10/19/17 20:27 Dose: Not Given Rosuvastatin Calcium (Crestor) 5 mg PO HS [facility] Last Admin: 10/19/17 22:12 Dose: 5 mg - Labs Labs: 10/19/17 11:48 10/19/17 11:48 PT 14.1 SECONDS (9.7-12.2) H 10/19/17 11:48 INR 1.3 10/19/17 11:48 APTT 28 SECONDS (21-34) 10/19/17 11:48 - Constitutional Appears: Non-toxic, No Acute Distress, Other (obese) - Eye Exam Eye Exam: EOMI, PERRL - ENT Exam ENT Exam: Mucous Membranes Dry - Respiratory Exam Respiratory Exam: Clear to Ausculation Bilateral. absent: Rales, Rhonchi, Wheezes - Cardiovascular Exam Cardiovascular Exam: RRR, +S1, +S2 - GI/Abdominal Exam GI & Abdominal Exam: Soft, Normal Bowel Sounds. absent: Distended, Firm, Guarding, Rigid, Tenderness, Organomegaly - Extremities Exam Extremities Exam: Normal Inspection. absent: Pedal Edema - Neurological Exam Neurological Exam: Alert, Awake, Oriented x3 - Psychiatric Exam Psychiatric exam: Normal Affect, Normal Mood - Skin Skin Exam: Dry, Warm Assessment and Plan - Assessment and Plan (Free Text) Assessment: Patient is a 66 year old female with PMHx significant for CAD s/p CABGx3, HTN, DM, anemia, history of colon polyps and H pylori gastritis who presents to the hospital for abnormal blood work with HGB 5.7 -Symptomatic anemia, Microcytic, iron deficiency anemia Plan: -S/P 2 units PRBC transfusion -LDH WNL, Retic count elevated, Haptoglobin pending -Patient would benefit from repeat endoscopic evaluation and capsule study given ongoing unexplained KALYAN -CT A/P with PO/IV this morning -Awaiting hematology evaluation - Dr Alegria -FOBT can be falsely-positive in the setting of iron supplementation -Diet as tolerated <Albert Fu - Last Filed: 10/20/17 07:58> Objective - Vital Signs/Intake and Output Vital Signs (last 24 hours): Temp Pulse Resp BP Pulse Ox 98.6 F 115 H 20 119/59 L 94 L 10/19/17 23:55 10/20/17 00:18 10/19/17 23:55 10/19/17 23:55 10/20/17 04:12 Intake and Output: 10/20/17 10/20/17 06:59 18:59 Intake Total 445 Balance 445 - Medications Medications: Current Medications Alprazolam (Xanax) 0.25 mg PO TID PRN PRN Reason: Anxiety Stop: 10/26/17 17:09 Last Admin: 10/20/17 01:22 Dose: 0.25 mg Amlodipine Besylate (Norvasc) 2.5 mg PO DAILY [facility] Last Admin: 10/19/17 20:26 Dose: 2.5 mg Escitalopram Oxalate (Lexapro) 10 mg PO DAILY [facility] Ferric Sodium Gluconate Complex (Ferrlecit) 125 mg IVPB DAILY [facility] Stop: 10/25/17 10:01 Furosemide (Lasix) 40 mg PO DAILY [facility] Glimepiride (Amaryl) 4 mg PO BID [facility] Last Admin: 10/19/17 20:26 Dose: 4 mg Home Med (Patient's Own Medication) 1 tab PO DAILY [facility] Insulin Aspart (Novolog) 0 unit SC ACHS [facility] PRN Reason: Protocol Last Admin: 10/20/17 07:41 Dose: Not Given Losartan Potassium (Cozaar) 100 mg PO DAILY [facility] Last Admin: 10/19/17 20:26 Dose: 100 mg Metformin HCl (Glucophage Xr) 750 mg PO BID [facility] Last Admin: 10/19/17 19:45 Dose: Not Given Montelukast Sodium (Singulair) 10 mg PO HS [facility] Last Admin: 10/19/17 22:12 Dose: 10 mg Nebivolol (Bystolic) 10 mg PO DAILY [facility] Pantoprazole Sodium (Protonix Inj) 40 mg IVP DAILY [facility] Last Admin: 10/19/17 20:27 Dose: Not Given Rosuvastatin Calcium (Crestor) 5 mg PO HS [facility] Last Admin: 10/19/17 22:12 Dose: 5 mg - Labs Labs: 10/19/17 11:48 10/19/17 11:48 PT 14.1 SECONDS (9.7-12.2) H 10/19/17 11:48 INR 1.3 10/19/17 11:48 APTT 28 SECONDS (21-34) 10/19/17 11:48 Attending/Attestation - Attestation I have personally seen and examined this patient.: Yes I have fully participated in the care of the patient.: Yes I have reviewed all pertinent clinical information, including history, physical exam and plan: Yes Notes (Text): 10/20/17 07:56 66 year old female with h/o CAD s/p CABGx3, HTN, DM, anemia admitted with symptomatic anemia. 1. Iron deficiency anemia Plan: -symptomatically improved after transfusion -hematology eval for other causes of anemia -CT A/P today -may need capsule endosocpy or additional endoscopic eval electively -no overt GI bleeding
[2017-10-20 08:14] LABS: BASO # 0.1 K/uL (0.0-0.2); BASO % 1.3 % (0.0-2.0); EOS # 0.1 K/uL (0.0-0.7); EOS % 1.5 % (0.0-4.0); HEMOGLOBIN 7.3 g/dL (11.0-16.0); LYMPH # 2.2 K/uL (1.0-4.3); LYMPH % 24.7 % (20.0-40.0); MEAN CORPUSCULAR HEMOGLOBIN 26.9 pg (27.0-31.0); MEAN CORPUSCULAR HGB CONC 33.1 g/dL (33.0-37.0); MEAN PLATELET VOLUME 10.1 fL (7.2-11.7); MONO # 0.7 K/uL (0.0-0.8); MONO % 7.4 % (0.0-10.0); NEUT # 5.9 K/uL (1.8-7.0); NEUT % 65.1 % (50.0-75.0); NRBC % 0.1 % (0.0-2.0); RBC 2.7 Mil/uL (3.80-5.20)
[2017-10-20 08:17] LABS: MEAN CELL VOLUME 81.3 fL (81.0-99.0)
[2017-10-20] MEDS ORDERED: Iohexol 240 (50 ml) PO ONE (08:30)
[2017-10-20] MEDS: Ferric Sodium Gluconat Complex 62.5 mg/5 ml Vial IVPB SCH (09:36)
[2017-10-20] MEDS: TRADJENTA 5 MG PO SCH (09:39)
[2017-10-20] MEDS ORDERED: Iodixanol 320 MG/ML 100 ML BOTTLE IV ONE (10:38)
--- NOTE | 2017-10-20 12:08 | CT ---
PROCEDURE: CT Abdomen and Pelvis with contrast HISTORY: unexplained iron deficiency anemia COMPARISON: 12/31/2012 TECHNIQUE: Contrast dose: 100 mL Visipaque 320 Radiation dose: Total exam DLP = 1134.10 mGy-cm. This CT exam was performed using one or more of the following dose reduction techniques: Automated exposure control, adjustment of the mA and/or kV according to patient size, and/or use of iterative reconstruction technique. FINDINGS: LOWER THORAX: Cardiomegaly. AICD. LIVER: Normal size. Questionable mild nodularity of contour. Possible hepatic cirrhosis. Please correlate. No mass. No biliary dilatation. Mild nonspecific periportal edema. GALLBLADDER AND BILE DUCTS: Status post cholecystectomy. Mildly dilated common bile duct up to 10 mm consistent with patient age and prior cholecystectomy. PANCREAS: Unremarkable. No gross lesion or ductal dilatation. SPLEEN: Unremarkable. ADRENALS: Unremarkable. No mass. KIDNEYS AND URETERS: Unremarkable. No hydronephrosis. No solid mass. VASCULATURE: Unremarkable. No aortic aneurysm. BOWEL: Scattered colonic diverticulae. No evidence of diverticulitis. No bowel obstruction. APPENDIX: Normal appendix. PERITONEUM: Unremarkable. No free fluid. No free air. LYMPH NODES: Numerous subcentimeter retroperitoneal lymph nodes. There are multiple mildly enlarged marcel hepatis nodes of uncertain significance. No pelvic lymphadenopathy. BLADDER: Unremarkable. REPRODUCTIVE: Normal uterus. BONES: Degenerative disc disease lower lumbar spine with grade 1 retrolisthesis at L5-S1. No spondylolysis. No acute fracture. OTHER FINDINGS: None. IMPRESSION: Multiple mildly enlarged marcel hepatis lymph nodes of uncertain significance. Mild periportal edema, nonspecific. Status post cholecystectomy. Mild nodularity of hepatic contour, possibly reflecting hepatic cirrhosis. Please correlate. Scattered colonic diverticulae. Additional minor findings as above.
--- NOTE | 2017-10-20 20:22 | CP.PCM.CON ---
History of Present Illness - History of Present Illness History of Present Illness: 66 year old female with a history of HTN, DM, CAD s/p CABG, pacemaker, admitted with symptomatic anemia. The patient reports to progressive fatigue over 2-3 weeks. She had blood work which revealed a hgb in the 5's and sent to the ER. In the ER she was found to have a hgb of 5.7 and is s/p 2U PRBC. She does admit to intermittent hematochezia but notes she had a colonoscopy done. Review of her blood work from September shows low iron stores. Currently she feels much better but still weak. Past medical history: HTN, DM, CAD s/p CABG, pacemaker Past surgical history: CABG, pacemaker, cholecystectomy Family history: Mother had unknown cancer Social history: Denies tobacco, alcohol, and illicit drug use. Allergies: NKA Review of systems: All remaining review of systems including HEENT, cardiovascular, respiratory, gastrointestinal, genitourinary, musculoskeletal, dermatologic, neurologic, and psychiatric are negative unless mentioned in the HPI. Past Patient History - Infectious Disease Hx of Infectious Diseases: None - Past Medical History & Family History Past Medical History?: Yes - Past Social History Smoking Status: Former Smoker - CARDIAC Hx Cardia Arrhythmia: Yes Hx Congestive Heart Failure: Yes Hx Hypercholesterolemia: Yes Hx Hypertension: Yes Hx Pacemaker: Yes - PULMONARY Hx Asthma: Yes - NEUROLOGICAL Hx Neurological Disorder: No - HEENT Hx HEENT Problems: Yes Hx Cataracts: Yes - RENAL Hx Chronic Kidney Disease: No - ENDOCRINE/METABOLIC Hx Endocrine Disorders: Yes Hx Diabetes Mellitus Type 1: Yes - HEMATOLOGICAL/ONCOLOGICAL Hx Blood Disorders: No - INTEGUMENTARY Hx Dermatological Problems: No - MUSCULOSKELETAL/RHEUMATOLOGICAL Hx Arthritis: Yes - GASTROINTESTINAL Hx Gastrointestinal Disorders: Yes Other/Comment: DARK STOOL - GENITOURINARY/GYNECOLOGICAL Hx Genitourinary Disorders: No - PSYCHIATRIC Hx Anxiety: Yes Hx Substance Use: No - SURGICAL HISTORY Hx Cholecystectomy: Yes Hx Coronary Stent: Yes (3) - ANESTHESIA Hx Anesthesia: Yes Hx Anesthesia Reactions: No Hx Malignant Hyperthermia: No Meds Allergies/Adverse Reactions: Allergies Allergy/AdvReac Type Severity Reaction Status Date / Time No Known Allergies Allergy Verified 10/19/17 10:14 - Medications Medications: Current Medications Acetaminophen (Tylenol 325mg Tab) 650 mg PO ONCE ONE Stop: 10/21/17 10:01 Alprazolam (Xanax) 0.25 mg PO TID PRN PRN Reason: Anxiety Stop: 10/26/17 17:09 Last Admin: 10/20/17 01:22 Dose: 0.25 mg Amlodipine Besylate (Norvasc) 2.5 mg PO DAILY [facility] Last Admin: 10/20/17 09:36 Dose: 2.5 mg Escitalopram Oxalate (Lexapro) 10 mg PO DAILY [facility] Last Admin: 10/20/17 09:36 Dose: 10 mg Ferric Sodium Gluconate Complex (Ferrlecit) 125 mg IVPB DAILY [facility] Stop: 10/25/17 10:01 Last Admin: 10/20/17 09:36 Dose: 125 mg Furosemide (Lasix) 40 mg PO DAILY [facility] Last Admin: 10/20/17 09:36 Dose: 40 mg Glimepiride (Amaryl) 4 mg PO BID [facility] Last Admin: 10/20/17 17:38 Dose: 4 mg Home Med (Patient's Own Medication) 1 tab PO DAILY [facility] Last Admin: 10/20/17 09:39 Dose: Not Given Insulin Aspart (Novolog) 0 unit SC ACHS [facility] PRN Reason: Protocol Last Admin: 10/20/17 17:30 Dose: 2 unit Losartan Potassium (Cozaar) 100 mg PO DAILY [facility] Last Admin: 10/20/17 09:36 Dose: 100 mg Metformin HCl (Glucophage Xr) 750 mg PO BID [facility] Last Admin: 10/19/17 19:45 Dose: Not Given Montelukast Sodium (Singulair) 10 mg PO [facility] Last Admin: 10/19/17 22:12 Dose: 10 mg Nebivolol (Bystolic) 10 mg PO DAILY [facility] Last Admin: 10/20/17 09:36 Dose: 10 mg Pantoprazole Sodium (Protonix Inj) 40 mg IVP DAILY [facility] Last Admin: 10/20/17 11:00 Dose: 40 mg Rosuvastatin Calcium (Crestor) 5 mg PO [facility] Last Admin: 10/19/17 22:12 Dose: 5 mg Physical Exam - Head Exam Head Exam: ATRAUMATIC - Eye Exam Eye Exam: Normal appearance - ENT Exam ENT Exam: Mucous Membranes Dry - Respiratory Exam Respiratory Exam: NORMAL BREATHING PATTERN - Cardiovascular Exam Cardiovascular Exam: +S1, +S2 - GI/Abdominal Exam GI & Abdominal Exam: Normal Bowel Sounds - Neurological Exam Neurological exam: Oriented x3 - Psychiatric Exam Psychiatric exam: Normal Affect, Normal Mood - Skin Skin Exam: Warm Results - Vital Signs Recent Vital Signs: Last Vital Signs Temp 98.2 F 10/20/17 15:11 Pulse 98 H 10/20/17 16:00 Resp 20 10/20/17 15:11 BP 128/52 L 10/20/17 15:11 Pulse Ox 96 10/20/17 15:11 - Labs Result Diagrams: 10/20/17 07:50 10/19/17 11:48 Labs: Laboratory Results - last 24 hr 10/19/17 10/20/17 10/20/17 21:47 01:20 01:20 WBC RBC Hgb Hct MCV MCH MCHC RDW Plt Count MPV Neut % (Auto) Lymph % (Auto) Dolores % (Auto) Eos % (Auto) Baso % (Auto) Neut # (Auto) Lymph # (Auto) Dolores # (Auto) Eos # (Auto) Baso # (Auto) Retic Count 2.8 H D POC Glucose (mg/dL) 146 H Lactate Dehydrogenase 501 10/20/17 10/20/17 10/20/17 06:31 07:50 11:57 WBC 9.0 RBC 2.70 L Hgb 7.3 L Hct 22.0 L MCV 81.3 D MCH 26.9 L MCHC 33.1 RDW 18.0 H Plt Count 131 MPV 10.1 Neut % (Auto) 65.1 Lymph % (Auto) 24.7 Dolores % (Auto) 7.4 Eos % (Auto) 1.5 Baso % (Auto) 1.3 Neut # (Auto) 5.9 Lymph # (Auto) 2.2 Dolores # (Auto) 0.7 Eos # (Auto) 0.1 Baso # (Auto) 0.1 Retic Count POC Glucose (mg/dL) 135 H 147 H Lactate Dehydrogenase 10/20/17 16:37 WBC RBC Hgb Hct MCV MCH MCHC RDW Plt Count MPV Neut % (Auto) Lymph % (Auto) Dolores % (Auto) Eos % (Auto) Baso % (Auto) Neut # (Auto) Lymph # (Auto) Dolores # (Auto) Eos # (Auto) Baso # (Auto) Retic Count POC Glucose (mg/dL) 151 H Lactate Dehydrogenase Assessment & Plan (1) Symptomatic anemia Assessment and Plan: work up consistent with iron deficiency anemia no evidence of hemolysis, UA negative for RBC's likely occult GI blood loss; GI w/u s/p 2U PRBC and on IV iron daily will transfuse 2 additional units PRBC in AM Thank you for this interesting consult. Status: Acute
--- NOTE | 2017-10-20 23:18 | CARD ---
APPROVED REPORT EKG Measurement Heart [id number] CO [id number] <Conclusion> Atrial sensed with V paced rhythm Abnormal ECG
--- NOTE | 2017-10-21 00:17 | PN ---
DATE: 10/20/2017. SUBJECTIVE: She is not in any cardiopulmonary distress, status post 2 units of packed RBCs transfusions. PHYSICAL EXAMINATION: VITAL SIGNS: Blood pressure 128/52, temperature 98.2, respiratory rate 20 and pulse 90. HEENT: Pupils equal, reactive to light. Slightly pale mucosa of the conjunctivae. NECK: Supple. No JVD. No carotid bruit. No lymph node. No thyromegaly. CHEST AND LUNGS: Bilateral symmetrical expansion. Good air exchange. No rales, no rhonchi. CARDIOVASCULAR SYSTEM: PMI not localized. S1, S2. No additional sounds. ABDOMEN: Normoactive bowel sounds. No tenderness. No organomegaly. No masses. EXTREMITIES: No cyanosis, no clubbing, no edema. SOLAR SALES: Alert, awake, oriented x3. No neurological deficit could be appreciated. ASSESSMENT: 1. Symptomatic anemia with hemoglobin dropped to 5.7 and hematocrit to 17 status post packed RBCs transfusion with current hemoglobin is 7.3 and hematocrit 22.0. 2. Congestive heart failure. 3. Type 2 diabetes mellitus. 4. Hypertension. PLAN: Follow up GI and hematology recommendations. We will consider transfusing the patient another unit or two. Follow up the serum iron studies, which the iron studies were low as the patient has saturation of 3%. We will supplement iron and will discuss with GI for considering repeating colonoscopy versus small bowel capsule endoscopy. Son Sadler MD
[2017-10-21] MEDS: (Novolog) Insulin Aspart, Recombinant 100 u/ml 10 ml vial SC SCH ×4 (09:30→21:50)
[2017-10-21 09:49] LABS: FOLATE > 20.0 ng/mL
[2017-10-21] MEDS: TRADJENTA 5 MG PO SCH (10:58)
--- NOTE | 2017-10-21 12:39 | CP.PCM.PN ---
<Amn Kendricka - Last Filed: 10/21/17 12:42> Subjective - Date & Time of Evaluation Date of Evaluation: 10/21/17 Time of Evaluation: 08:45 - Subjective Subjective: GI Fellow PGY4 Progress Note Pt seen and evaluated at bedside, pt doing well with no active GI bleeding. Pt reports still having SOB on conversation. A 12pt ROS was negative except as above. Objective - Vital Signs/Intake and Output Vital Signs (last 24 hours): Temp Pulse Resp BP Pulse Ox 98.5 F 76 20 128/61 98 10/21/17 12:00 10/21/17 12:00 10/21/17 12:00 10/21/17 12:00 10/21/17 12:00 Intake and Output: 10/21/17 10/21/17 06:59 18:59 Intake Total 360 0 Balance 360 0 - Medications Medications: Current Medications Alprazolam (Xanax) 0.25 mg PO TID PRN PRN Reason: Anxiety Stop: 10/26/17 17:09 Last Admin: 10/20/17 23:58 Dose: 0.25 mg Amlodipine Besylate (Norvasc) 2.5 mg PO DAILY [facility] Last Admin: 10/21/17 09:37 Dose: 2.5 mg Escitalopram Oxalate (Lexapro) 10 mg PO DAILY [facility] Last Admin: 10/21/17 09:38 Dose: 10 mg Ferric Sodium Gluconate Complex (Ferrlecit) 125 mg IVPB DAILY [facility] Stop: 10/25/17 10:01 Last Admin: 10/20/17 09:36 Dose: 125 mg Furosemide (Lasix) 40 mg PO DAILY [facility] Last Admin: 10/21/17 09:38 Dose: 40 mg Glimepiride (Amaryl) 4 mg PO BID [facility] Last Admin: 10/21/17 09:37 Dose: 4 mg Home Med (Patient's Own Medication) 1 tab PO DAILY [facility] Last Admin: 10/21/17 10:58 Dose: Not Given Insulin Aspart (Novolog) 0 unit SC ACHS [facility] PRN Reason: Protocol Last Admin: 10/21/17 11:37 Dose: Not Given Losartan Potassium (Cozaar) 100 mg PO DAILY [facility] Last Admin: 10/21/17 09:37 Dose: 100 mg Metformin HCl (Glucophage Xr) 750 mg PO BID [facility] Last Admin: 10/19/17 19:45 Dose: Not Given Montelukast Sodium (Singulair) 10 mg PO HS [facility] Last Admin: 10/20/17 21:43 Dose: 10 mg Nebivolol (Bystolic) 10 mg PO DAILY [facility] Last Admin: 10/21/17 09:38 Dose: 10 mg Pantoprazole Sodium (Protonix Inj) 40 mg IVP DAILY [facility] Last Admin: 10/21/17 09:40 Dose: 40 mg Rosuvastatin Calcium (Crestor) 5 mg PO HS [facility] Last Admin: 10/20/17 21:42 Dose: 5 mg - Labs Labs: 10/20/17 07:50 10/19/17 11:48 PT 14.1 SECONDS (9.7-12.2) H 10/19/17 11:48 INR 1.3 10/19/17 11:48 APTT 28 SECONDS (21-34) 10/19/17 11:48 - Constitutional Appears: Non-toxic, No Acute Distress - Head Exam Head Exam: ATRAUMATIC, NORMAL INSPECTION, NORMOCEPHALIC - Eye Exam Eye Exam: EOMI, Normal appearance Pupil Exam: PERRL - ENT Exam ENT Exam: Mucous Membranes Moist, Normal Exam - Neck Exam Neck Exam: Normal Inspection - Respiratory Exam Respiratory Exam: Clear to Ausculation Bilateral, NORMAL BREATHING PATTERN - Cardiovascular Exam Cardiovascular Exam: REGULAR RHYTHM, RRR - GI/Abdominal Exam GI & Abdominal Exam: Soft, Normal Bowel Sounds. absent: Distended, Tenderness - Extremities Exam Extremities Exam: Full ROM - Back Exam Back Exam: NORMAL INSPECTION - Neurological Exam Neurological Exam: Alert, Awake, Oriented x3 - Psychiatric Exam Psychiatric exam: Normal Affect, Normal Mood - Skin Skin Exam: Dry, Intact, Pallor, Warm Assessment and Plan - Assessment and Plan (Free Text) Assessment: Patient is a 66 year old female with PMHx significant for CAD s/p CABGx3, HTN, DM, anemia, history of colon polyps and H pylori gastritis who presents to the hospital for abnormal blood work with HGB 5.7 1. Symptomatic anemia, Microcytic, iron deficiency anemia Plan: -S/P 2 units PRBC transfusion -Will monitor H/H and transfuse as needed -Patient would benefit from repeat endoscopic evaluation and capsule study given ongoing unexplained anemia -CT A/P with nodular liver concerning for cirrhosis, no hx of ETOH, autoimmune and hepatitis workup negative in 2014 -Appreciate Hematology recommendations -Diet as tolerated -Please call with any questions or concerns <Albert Fu - Last Filed: 10/21/17 15:18> Objective - Vital Signs/Intake and Output Vital Signs (last 24 hours): Temp Pulse Resp BP Pulse Ox 98.2 F 80 20 113/65 98 10/21/17 13:18 10/21/17 13:18 10/21/17 13:18 10/21/17 13:18 10/21/17 12:38 Intake and Output: 10/21/17 10/21/17 06:59 18:59 Intake Total 360 335 Balance 360 335 - Medications Medications: Current Medications Alprazolam (Xanax) 0.25 mg PO TID PRN PRN Reason: Anxiety Stop: 10/26/17 17:09 Last Admin: 10/20/17 23:58 Dose: 0.25 mg Amlodipine Besylate (Norvasc) 2.5 mg PO DAILY [facility] Last Admin: 10/21/17 09:37 Dose: 2.5 mg Escitalopram Oxalate (Lexapro) 10 mg PO DAILY [facility] Last Admin: 10/21/17 09:38 Dose: 10 mg Ferric Sodium Gluconate Complex (Ferrlecit) 125 mg IVPB DAILY [facility] Stop: 10/25/17 10:01 Last Admin: 10/20/17 09:36 Dose: 125 mg Furosemide (Lasix) 40 mg PO DAILY [facility] Last Admin: 10/21/17 09:38 Dose: 40 mg Glimepiride (Amaryl) 4 mg PO BID [facility] Last Admin: 10/21/17 09:37 Dose: 4 mg Home Med (Patient's Own Medication) 1 tab PO DAILY [facility] Last Admin: 10/21/17 10:58 Dose: Not Given Insulin Aspart (Novolog) 0 unit SC ACHS [facility] PRN Reason: Protocol Last Admin: 10/21/17 11:37 Dose: Not Given Losartan Potassium (Cozaar) 100 mg PO DAILY [facility] Last Admin: 10/21/17 09:37 Dose: 100 mg Metformin HCl (Glucophage Xr) 750 mg PO BID [facility] Last Admin: 10/19/17 19:45 Dose: Not Given Montelukast Sodium (Singulair) 10 mg PO HS [facility] Last Admin: 10/20/17 21:43 Dose: 10 mg Nebivolol (Bystolic) 10 mg PO DAILY [facility] Last Admin: 10/21/17 09:38 Dose: 10 mg Pantoprazole Sodium (Protonix Inj) 40 mg IVP DAILY [facility] Last Admin: 10/21/17 09:40 Dose: 40 mg Rosuvastatin Calcium (Crestor) 5 mg PO HS [facility] Last Admin: 10/20/17 21:42 Dose: 5 mg - Labs Labs: 10/21/17 13:36 10/19/17 11:48 PT 14.1 SECONDS (9.7-12.2) H 10/19/17 11:48 INR 1.3 10/19/17 11:48 APTT 28 SECONDS (21-34) 10/19/17 11:48 Attending/Attestation - Attestation I have personally seen and examined this patient.: Yes I have fully participated in the care of the patient.: Yes I have reviewed all pertinent clinical information, including history, physical exam and plan: Yes Notes (Text): 10/21/17 15:17 66 year old female with h/o CAD s/p CABGx3, HTN, DM, anemia admitted with symptomatic anemia. 1. Iron deficiency anemia 2. Occult GI bleeding Plan: -symptomatically improved after transfusion -hematology eval for other causes of anemia unremarkable -CT A/P showed questionable nodular liver, eval for chronic liver disease -overall clinical picture is consistent with chronic occult GI blood loss -recommend outpatient VCE
[2017-10-21 13:42] LABS: BASO # 0.1 K/uL (0.0-0.2); BASO % 1.1 % (0.0-2.0); EOS # 0.2 K/uL (0.0-0.7); EOS % 1.7 % (0.0-4.0); HEMOGLOBIN 7.8 g/dL (11.0-16.0); LYMPH # 1.9 K/uL (1.0-4.3); LYMPH % 19.9 % (20.0-40.0); MEAN CELL VOLUME 81.8 fL (81.0-99.0); MEAN PLATELET VOLUME 10.3 fL (7.2-11.7); MONO # 0.8 K/uL (0.0-0.8); NEUT # 6.6 K/uL (1.8-7.0); NEUT % 69.3 % (50.0-75.0); RBC 2.88 Mil/uL (3.80-5.20); RED CELL DISTRIBUTION WIDTH 18.4 % (11.5-14.5); WHITE BLOOD COUNT 9.5 K/uL (4.8-10.8)
[2017-10-21] MEDS: Ferric Sodium Gluconat Complex 62.5 mg/5 ml Vial IVPB SCH (15:49)
--- NOTE | 2017-10-21 17:19 | CP.PCM.PN ---
Subjective - Date & Time of Evaluation Date of Evaluation: 10/21/17 Time of Evaluation: 16:20 - Subjective Subjective: Feeling better after transfusion today. Objective - Vital Signs/Intake and Output Vital Signs (last 24 hours): Temp Pulse Resp BP Pulse Ox 98.1 F 75 18 128/54 L 96 10/21/17 15:58 10/21/17 15:58 10/21/17 15:58 10/21/17 15:58 10/21/17 15:58 Intake and Output: 10/21/17 10/21/17 06:59 18:59 Intake Total 360 335 Balance 360 335 - Medications Medications: Current Medications Alprazolam (Xanax) 0.25 mg PO TID PRN PRN Reason: Anxiety Stop: 10/26/17 17:09 Last Admin: 10/20/17 23:58 Dose: 0.25 mg Amlodipine Besylate (Norvasc) 2.5 mg PO DAILY [facility] Last Admin: 10/21/17 09:37 Dose: 2.5 mg Escitalopram Oxalate (Lexapro) 10 mg PO DAILY [facility] Last Admin: 10/21/17 09:38 Dose: 10 mg Ferric Sodium Gluconate Complex (Ferrlecit) 125 mg IVPB DAILY [facility] Stop: 10/25/17 10:01 Last Admin: 10/21/17 15:49 Dose: 125 mg Furosemide (Lasix) 40 mg PO DAILY [facility] Last Admin: 10/21/17 09:38 Dose: 40 mg Glimepiride (Amaryl) 4 mg PO BID [facility] Last Admin: 10/21/17 09:37 Dose: 4 mg Home Med (Patient's Own Medication) 1 tab PO DAILY [facility] Last Admin: 10/21/17 10:58 Dose: Not Given Insulin Aspart (Novolog) 0 unit SC ACHS [facility] PRN Reason: Protocol Last Admin: 10/21/17 11:37 Dose: Not Given Losartan Potassium (Cozaar) 100 mg PO DAILY [facility] Last Admin: 10/21/17 09:37 Dose: 100 mg Metformin HCl (Glucophage Xr) 750 mg PO BID [facility] Last Admin: 10/19/17 19:45 Dose: Not Given Montelukast Sodium (Singulair) 10 mg PO [facility] Last Admin: 10/20/17 21:43 Dose: 10 mg Nebivolol (Bystolic) 10 mg PO DAILY [facility] Last Admin: 10/21/17 09:38 Dose: 10 mg Pantoprazole Sodium (Protonix Inj) 40 mg IVP DAILY [facility] Last Admin: 10/21/17 09:40 Dose: 40 mg Rosuvastatin Calcium (Crestor) 5 mg PO HS [facility] Last Admin: 10/20/17 21:42 Dose: 5 mg - Labs Labs: 10/21/17 13:36 10/19/17 11:48 PT 14.1 SECONDS (9.7-12.2) H 10/19/17 11:48 INR 1.3 10/19/17 11:48 APTT 28 SECONDS (21-34) 10/19/17 11:48 - Head Exam Head Exam: ATRAUMATIC - Eye Exam Eye Exam: Normal appearance - ENT Exam ENT Exam: Mucous Membranes Dry - Respiratory Exam Respiratory Exam: NORMAL BREATHING PATTERN - Cardiovascular Exam Cardiovascular Exam: +S1, +S2 - GI/Abdominal Exam GI & Abdominal Exam: Normal Bowel Sounds - Extremities Exam Extremities Exam: Normal Inspection Assessment and Plan (1) Symptomatic anemia Assessment & Plan: iron deficiency likely from chronic occult GI blood loss nodular liver on CT ? cirrhosis with pHTN bleeding GI f/u 2U PRBC today IV iron daily Status: Acute
[2017-10-21 17:51] VITALS: RESP 20
[2017-10-22] MEDS: (Novolog) Insulin Aspart, Recombinant 100 u/ml 10 ml vial SC SCH ×4 (08:00→21:51)
[2017-10-22 08:26] LABS: BASO # 0.1 K/uL (0.0-0.2); BASO % 1.1 % (0.0-2.0); EOS # 0.2 K/uL (0.0-0.7); EOS % 1.9 % (0.0-4.0); HEMOGLOBIN 9.3 g/dL (11.0-16.0); LYMPH % 21.1 % (20.0-40.0); MEAN CELL VOLUME 82.3 fL (81.0-99.0); MEAN CORPUSCULAR HEMOGLOBIN 27.5 pg (27.0-31.0); MEAN CORPUSCULAR HGB CONC 33.4 g/dL (33.0-37.0); MEAN PLATELET VOLUME 9.8 fL (7.2-11.7); MONO # 0.8 K/uL (0.0-0.8); MONO % 8.6 % (0.0-10.0); NEUT # 6.3 K/uL (1.8-7.0); NEUT % 67.3 % (50.0-75.0); RBC 3.37 Mil/uL (3.80-5.20); RED CELL DISTRIBUTION WIDTH 18.4 % (11.5-14.5); WHITE BLOOD COUNT 9.4 K/uL (4.8-10.8)
[2017-10-22] MEDS: Ferric Sodium Gluconat Complex 62.5 mg/5 ml Vial IVPB SCH (10:22)
[2017-10-22] MEDS: TRADJENTA 5 MG PO SCH (11:00)
--- NOTE | 2017-10-22 12:44 | CP.PCM.PN ---
<KendrickFauzia - Last Filed: 10/22/17 12:45> Subjective - Date & Time of Evaluation Date of Evaluation: 10/22/17 Time of Evaluation: 09:10 - Subjective Subjective: GI Fellow PGY4 Progress Note Pt seen and evaluated at bedside, pt doing well with no active GI bleeding. Pt reports still having SOB on conversation. A 12pt ROS was negative except as above. Objective - Vital Signs/Intake and Output Vital Signs (last 24 hours): Temp Pulse Resp BP Pulse Ox 98.1 F 86 20 147/69 95 10/22/17 08:00 10/22/17 08:00 10/22/17 08:00 10/22/17 10:29 10/22/17 08:00 Intake and Output: 10/22/17 10/22/17 06:59 18:59 Intake Total 645 Balance 645 - Medications Medications: Current Medications Alprazolam (Xanax) 0.25 mg PO TID PRN PRN Reason: Anxiety Stop: 10/26/17 17:09 Last Admin: 10/21/17 22:07 Dose: 0.25 mg Amlodipine Besylate (Norvasc) 2.5 mg PO DAILY [facility] Last Admin: 10/22/17 10:29 Dose: 2.5 mg Escitalopram Oxalate (Lexapro) 10 mg PO DAILY [facility] Last Admin: 10/22/17 10:29 Dose: 10 mg Ferric Sodium Gluconate Complex (Ferrlecit) 125 mg IVPB DAILY [facility] Stop: 10/25/17 10:01 Last Admin: 10/22/17 10:22 Dose: 125 mg Furosemide (Lasix) 40 mg PO DAILY [facility] Last Admin: 10/22/17 10:29 Dose: 40 mg Glimepiride (Amaryl) 4 mg PO BID [facility] Last Admin: 10/22/17 10:28 Dose: 4 mg Home Med (Patient's Own Medication) 1 tab PO DAILY [facility] Last Admin: 10/21/17 10:58 Dose: Not Given Insulin Aspart (Novolog) 0 unit SC ACHS [facility] PRN Reason: Protocol Last Admin: 10/22/17 08:00 Dose: Not Given Losartan Potassium (Cozaar) 100 mg PO DAILY [facility] Last Admin: 10/22/17 10:29 Dose: 100 mg Metformin HCl (Glucophage Xr) 750 mg PO BID [facility] Last Admin: 10/19/17 19:45 Dose: Not Given Montelukast Sodium (Singulair) 10 mg PO HS [facility] Last Admin: 10/21/17 21:19 Dose: 10 mg Nebivolol (Bystolic) 10 mg PO DAILY [facility] Last Admin: 10/22/17 10:29 Dose: 10 mg Pantoprazole Sodium (Protonix Inj) 40 mg IVP DAILY [facility] Last Admin: 10/22/17 10:19 Dose: 40 mg Rosuvastatin Calcium (Crestor) 5 mg PO HS [facility] Last Admin: 10/21/17 21:19 Dose: 5 mg - Labs Labs: 10/22/17 08:16 10/19/17 11:48 PT 14.1 SECONDS (9.7-12.2) H 10/19/17 11:48 INR 1.3 10/19/17 11:48 APTT 28 SECONDS (21-34) 10/19/17 11:48 - Constitutional Appears: Non-toxic, No Acute Distress - Head Exam Head Exam: ATRAUMATIC, NORMAL INSPECTION, NORMOCEPHALIC - Eye Exam Eye Exam: EOMI, Normal appearance - ENT Exam ENT Exam: Mucous Membranes Moist, Normal Exam - Neck Exam Neck Exam: Full ROM, Normal Inspection - Respiratory Exam Respiratory Exam: Clear to Ausculation Bilateral, NORMAL BREATHING PATTERN - Cardiovascular Exam Cardiovascular Exam: REGULAR RHYTHM, RRR - GI/Abdominal Exam GI & Abdominal Exam: Soft, Normal Bowel Sounds. absent: Distended, Tenderness - Extremities Exam Extremities Exam: Full ROM, Normal Inspection - Back Exam Back Exam: NORMAL INSPECTION - Neurological Exam Neurological Exam: Alert, Awake, Oriented x3 - Psychiatric Exam Psychiatric exam: Normal Affect, Normal Mood - Skin Skin Exam: Dry, Intact, Normal Color, Warm Assessment and Plan - Assessment and Plan (Free Text) Assessment: Patient is a 66 year old female with PMHx significant for CAD s/p CABGx3, HTN, DM, anemia, history of colon polyps and H pylori gastritis who presents to the hospital for abnormal blood work with HGB 5.7 1. Symptomatic anemia, Microcytic, iron deficiency anemia Plan: -Anemia s/p PRBC transfusion and iron -H/H stable 9.3 -Patient would benefit from repeat endoscopic evaluation and capsule study given ongoing unexplained anemia -CT A/P with nodular liver concerning for cirrhosis, no hx of ETOH, autoimmune and hepatitis workup negative in 2014 -Appreciate Hematology recommendations, will need outpt iron infusion -Diet as tolerated -Please call with any questions or concerns <Albert Fu - Last Filed: 10/22/17 14:39> Objective - Vital Signs/Intake and Output Vital Signs (last 24 hours): Temp Pulse Resp BP Pulse Ox 98.1 F 86 20 147/69 95 10/22/17 08:00 10/22/17 08:00 10/22/17 08:00 10/22/17 10:29 10/22/17 08:00 Intake and Output: 10/22/17 10/22/17 06:59 18:59 Intake Total 645 Balance 645 - Medications Medications: Current Medications Alprazolam (Xanax) 0.25 mg PO TID PRN PRN Reason: Anxiety Stop: 10/26/17 17:09 Last Admin: 10/21/17 22:07 Dose: 0.25 mg Amlodipine Besylate (Norvasc) 2.5 mg PO DAILY [facility] Last Admin: 10/22/17 10:29 Dose: 2.5 mg Escitalopram Oxalate (Lexapro) 10 mg PO DAILY [facility] Last Admin: 10/22/17 10:29 Dose: 10 mg Ferric Sodium Gluconate Complex (Ferrlecit) 125 mg IVPB DAILY [facility] Stop: 10/25/17 10:01 Last Admin: 10/22/17 10:22 Dose: 125 mg Furosemide (Lasix) 40 mg PO DAILY [facility] Last Admin: 10/22/17 10:29 Dose: 40 mg Glimepiride (Amaryl) 4 mg PO BID [facility] Last Admin: 10/22/17 10:28 Dose: 4 mg Home Med (Patient's Own Medication) 1 tab PO DAILY [facility] Last Admin: 10/22/17 11:00 Dose: Not Given Insulin Aspart (Novolog) 0 unit SC ACHS [facility] PRN Reason: Protocol Last Admin: 10/22/17 12:00 Dose: Not Given Losartan Potassium (Cozaar) 100 mg PO DAILY [facility] Last Admin: 10/22/17 10:29 Dose: 100 mg Metformin HCl (Glucophage Xr) 750 mg PO BID [facility] Last Admin: 10/19/17 19:45 Dose: Not Given Montelukast Sodium (Singulair) 10 mg PO HS [facility] Last Admin: 10/21/17 21:19 Dose: 10 mg Nebivolol (Bystolic) 10 mg PO DAILY [facility] Last Admin: 10/22/17 10:29 Dose: 10 mg Pantoprazole Sodium (Protonix Inj) 40 mg IVP DAILY [facility] Last Admin: 10/22/17 10:19 Dose: 40 mg Rosuvastatin Calcium (Crestor) 5 mg PO HS [facility] Last Admin: 10/21/17 21:19 Dose: 5 mg - Labs Labs: 10/22/17 08:16 10/19/17 11:48 PT 14.1 SECONDS (9.7-12.2) H 10/19/17 11:48 INR 1.3 10/19/17 11:48 APTT 28 SECONDS (21-34) 10/19/17 11:48 Attending/Attestation - Attestation I have personally seen and examined this patient.: Yes I have fully participated in the care of the patient.: Yes I have reviewed all pertinent clinical information, including history, physical exam and plan: Yes Notes (Text): 10/22/17 14:39 66 year old female with h/o CAD s/p CABGx3, HTN, DM, anemia admitted with symptomatic anemia. 1. Iron deficiency anemia 2. Occult GI bleeding Plan: -symptomatically improved after transfusion -hematology eval for other causes of anemia unremarkable -overall clinical picture is consistent with chronic occult GI blood loss -recommend outpatient VCE -will sign off
--- NOTE | 2017-10-23 03:13 | PN ---
DATE: 10/22/2017 SUBJECTIVE: The patient is seen today 10/22/2017. She feels generalized weakness and fatigue. PHYSICAL EXAMINATION: VITAL SIGNS: Blood pressure 131/61, temperature 97.6, respiratory rate 20, and pulse 78. HEENT: Pupils equal and reactive to light. Normal-appearing mucosa of the conjunctivae, oropharynx, and nasal membrane mucosa. NECK: Supple. No JVD. No carotid bruit. No lymph node. No thyromegaly. CHEST/LUNGS: Bilateral symmetrical expansion. Good air exchange. No rales, no rhonchi. CARDIOVASCULAR SYSTEM PMI not localized. S1, S2. No additional sounds. ABDOMEN: Normoactive bowel sounds. No tenderness. No organomegaly. No masses. EXTREMITIES: No cyanosis, no clubbing. FIELD COLLECTOR: Alert, awake, oriented x2. No neurological deficit could be appreciated. ASSESSMENT: 1. Anemia of acute blood loss with positive stool occult blood. 2. Congestive heart failure. 3. Status post pacemaker placement. 4. Hypertension. 5. Type 2 diabetes mellitus. PLAN: Follow GI recommendations and continue current medications. The patient is for capsule endoscopy as she had colonoscopy that did not show any abnormality and that did not explain any GI blood loss. Son Sadler MD
--- NOTE | 2017-10-23 07:12 | PN ---
DATE: 10/21/2017 SUBJECTIVE: The patient was seen on 10/21/2017. She is not in any cardiopulmonary distress. The patient is being transfused 2 more units of packed RBCs. PHYSICAL EXAMINATION: VITAL SIGNS: Blood pressure 121/66, temperature 98.1, respiratory rate 20, and pulse 83. HEENT: Pupils equal and reactive to light. Pale mucosa of the conjunctivae. NECK: Supple. No JVD. No carotid bruit. No lymph node. No thyromegaly. CHEST/LUNGS: Bilateral symmetrical expansion. Good air exchange. No rales, no rhonchi. CARDIOVASCULAR SYSTEM: PMI not localized. S1, S2. No additional sounds. ABDOMEN: Normoactive bowel sounds. No tenderness. No organomegaly. No masses. EXTREMITIES: No cyanosis, no clubbing, no edema. CNC MACHINE OPERATOR: Alert, awake, oriented x2. No neurological deficits could be appreciated. ASSESSMENT: 1. Anemia with gastrointestinal blood loss, stool occult blood is positive. 2. History of congestive heart failure. 3. Hypertension. 4. Type 2 diabetes mellitus. PLAN: We will follow recommendations of GI and Hematology. Continue current medications. Son Sadler MD Son Sadler MD cc:
[2017-10-23] MEDS: (Novolog) Insulin Aspart, Recombinant 100 u/ml 10 ml vial SC SCH ×2 (08:19→11:28)
[2017-10-23] MEDS: TRADJENTA 5 MG PO SCH (09:12)
[2017-10-23] MEDS ORDERED: Influenza Vaccine 60 mcg/0.5 mL SYR (4YR UP) IM ONE (10:00)
[2017-10-23] MEDS: Ferric Sodium Gluconat Complex 62.5 mg/5 ml Vial IVPB SCH (10:26)
[2017-10-23 12:16] LABS: HEMOGLOBIN 9.5 g/dL (11.0-16.0); MEAN CELL VOLUME 83.9 fL (81.0-99.0); MEAN CORPUSCULAR HEMOGLOBIN 27.5 pg (27.0-31.0); MEAN CORPUSCULAR HGB CONC 32.8 g/dL (33.0-37.0); MEAN PLATELET VOLUME 10.3 fL (7.2-11.7); RBC 3.44 Mil/uL (3.80-5.20); RED CELL DISTRIBUTION WIDTH 18.4 % (11.5-14.5); WHITE BLOOD COUNT 8.2 K/uL (4.8-10.8)
[2017-10-23 12:23] LABS: BLOOD UREA NITROGEN 11 mg/dL (7-17); CALCIUM 8.9 mg/dl (8.6-10.4); GFR AFRICAN-AMERICAN > 60; GFR NON-AFRICAN AMERICAN > 60
[2017-10-23] MEDS ORDERED: Potassium Chloride 10 mEq ER Tab PO ONE (12:54)
--- NOTE | 2017-10-23 14:21 | CP.PCM.PN ---
Subjective - Date & Time of Evaluation Date of Evaluation: 10/23/17 Time of Evaluation: 14:20 - Subjective Subjective: -FOLLOW UP WITH DR. MAGAÑA IN THE OFFICE IN 5-7 DAYS OF DISCHARGE----CALL THE OFFICE TOMORROW TO MAKE YOUR APPOINTMENT. -FOLLOW UP WITH DR. JARVIS (STOMACH DOCTOR) IN THE OFFICE IN 5-7 DAYS OF DISCHARGE----CALL THE OFFICE TOMORROW TO MAKE YOUR APPOINTMENT. -YOU WILL NEED FURTHER TESTING FOR YOUR GASTROINTESTINAL BLEEDING---DR. JARVIS WILL DISCUSS WITH YOU WHAT TESTS YOU WILL NEED AND WHEN THEY SHOULD BE SCHEDULED. -FOLLOW UP WITH DR. BRENNAN (BUFFET MANAGER) IN THE OFFICE IN 10-14 DAYS OF DISCHARGE----CALL THE OFFICE TOMORROW TO MAKE YOUR APPOINTMENT. -CONTINUE HOME MEDICATIONS USUAL. -NEW MEDICATIONS INCLUDE: 1) NIFEREX (IRON AND VITAMIN SUPPLEMENT) TAKE 1 TABLET BY MOUTH TWO TIMES A DAY. -FOR FURTHER CONCERNS OR QUESTIONS, CONTACT DR. MAGAÑA'S OFFICE. Objective - Vital Signs/Intake and Output Vital Signs (last 24 hours): Temp Pulse Resp BP Pulse Ox 98.0 F 78 20 140/60 96 10/23/17 07:30 10/23/17 07:30 10/23/17 07:30 10/23/17 09:11 10/23/17 07:30 Intake and Output: 10/23/17 10/23/17 06:59 18:59 Intake Total 240 400 Balance 240 400 - Medications Medications: Current Medications Alprazolam (Xanax) 0.25 mg PO TID PRN PRN Reason: Anxiety Stop: 10/26/17 17:09 Last Admin: 10/22/17 22:42 Dose: 0.25 mg Amlodipine Besylate (Norvasc) 2.5 mg PO DAILY [facility] Last Admin: 10/23/17 09:12 Dose: 2.5 mg Escitalopram Oxalate (Lexapro) 10 mg PO DAILY [facility] Last Admin: 10/23/17 09:12 Dose: 10 mg Ferric Sodium Gluconate Complex (Ferrlecit) 125 mg IVPB DAILY [facility] Stop: 10/25/17 10:01 Last Admin: 10/23/17 10:26 Dose: 125 mg Furosemide (Lasix) 40 mg PO DAILY [facility] Last Admin: 10/23/17 09:11 Dose: 40 mg Glimepiride (Amaryl) 4 mg PO BID [facility] Last Admin: 10/23/17 09:12 Dose: 4 mg Home Med (Patient's Own Medication) 1 tab PO DAILY [facility] Last Admin: 10/23/17 09:12 Dose: 1 tab Insulin Aspart (Novolog) 0 unit SC [facility] PRN Reason: Protocol Last Admin: 10/23/17 11:28 Dose: 6 unit Losartan Potassium (Cozaar) 100 mg PO DAILY [facility] Last Admin: 10/23/17 09:12 Dose: 100 mg Metformin HCl (Glucophage Xr) 750 mg PO BID [facility] Last Admin: 10/19/17 19:45 Dose: Not Given Montelukast Sodium (Singulair) 10 mg PO HS [facility] Last Admin: 10/22/17 21:50 Dose: 10 mg Nebivolol (Bystolic) 10 mg PO DAILY [facility] Last Admin: 10/23/17 09:13 Dose: 10 mg Pantoprazole Sodium (Protonix Inj) 40 mg IVP DAILY [facility] Last Admin: 10/23/17 09:14 Dose: 40 mg Rosuvastatin Calcium (Crestor) 5 mg PO HS [facility] Last Admin: 10/22/17 21:50 Dose: 5 mg - Labs Labs: 10/23/17 11:49 10/23/17 11:49 PT 14.1 SECONDS (9.7-12.2) H 10/19/17 11:48 INR 1.3 10/19/17 11:48 APTT 28 SECONDS (21-34) 10/19/17 11:48
[2017-10-23 15:59] VITALS: BP 135/62; PULSE 71; TEMP 97.7; O2SAT 97
--- NOTE | 2017-10-23 23:25 | CP.PCM.PN ---
Subjective - Date & Time of Evaluation Date of Evaluation: 10/23/17 Time of Evaluation: 09:35 - Subjective Subjective: Feeling better Objective - Vital Signs/Intake and Output Vital Signs (last 24 hours): Temp Pulse Resp BP Pulse Ox 97.7 F 71 20 135/62 97 10/23/17 15:58 10/23/17 15:58 10/23/17 15:58 10/23/17 15:58 10/23/17 15:58 Intake and Output: 10/23/17 10/24/17 18:59 06:59 Intake Total 725 Balance 725 - Labs Labs: 10/23/17 11:49 10/23/17 11:49 PT 14.1 SECONDS (9.7-12.2) H 10/19/17 11:48 INR 1.3 10/19/17 11:48 APTT 28 SECONDS (21-34) 10/19/17 11:48 - Head Exam Head Exam: ATRAUMATIC - Eye Exam Eye Exam: Normal appearance - ENT Exam ENT Exam: Mucous Membranes Dry - Respiratory Exam Respiratory Exam: NORMAL BREATHING PATTERN - Cardiovascular Exam Cardiovascular Exam: +S1, +S2 - GI/Abdominal Exam GI & Abdominal Exam: Normal Bowel Sounds Assessment and Plan (1) Symptomatic anemia Assessment & Plan: iron deficiency likely from chronic occult GI blood loss nodular liver on CT ? cirrhosis with pHTN bleeding GI f/u 2U PRBC today IV iron daily Status: Acute
--- NOTE | 2017-10-24 13:42 | DS ---
REASON FOR ADMISSION: This is a 66-year-old female with history of multiple medical problems who was admitted for symptomatic anemia. COURSE OF HOSPITALIZATION: Patient was found to have hemoglobin of 5.7. Patient was admitted to telemetry floor and she was transfused up to 4 units of packed RBCs and hemoglobin went up to 9.3. The patient had stool occult blood positive. The patient had a GI consult done by Dr. Davis and Hematology consult done by Dr. Moreno Alegria. The patient had a colonoscopy done about a month ago. Decision was to discharge patient as she became asymptomatic after hemoglobin is increased to 9.3 and patient will have a capsule endoscopy as an outpatient. Continue proton-pump inhibitors and patient will follow with GI this week as well as primary care physician to monitor hemoglobin and hematocrit. FINAL DIAGNOSES: 1. Acute blood loss anemia secondary to acute blood loss like most probably GI source. 2. History of congestive heart failure. 3. Status post pacemaker placement. 4. Type 2 diabetes mellitus. 5. Hypertension. [facility] MD Doroteo
== END 2017-10-23 16:14 | disposition home or self-care (01) | DRG 378 ==
LOC: C.ER 09:44 → C.9E 12:36 → C.6T 13:53 → OBSVTOIN 10-21 16:10
PROVIDERS: ADMIT Internal Medicine; ATTEND Internal Medicine
DX: K92.1 Melena (principal); D62 Acute posthemorrhagic anemia; I11.0 Hypertensive heart disease with heart failure; I50.9 Heart failure, unspecified; D50.9 Iron deficiency anemia, unspecified; I25.10 Atherosclerotic heart disease of native coronary artery without angina pectoris; E10.9 Type 1 diabetes mellitus without complications; J45.909 Unspecified asthma, uncomplicated; K29.70 Gastritis, unspecified, without bleeding; Z79.4 Long term (current) use of insulin; Z86.010 Personal history of colon polyps; Z95.5 Presence of coronary angioplasty implant and graft; Z95.810 Presence of automatic (implantable) cardiac defibrillator; Z87.891 Personal history of nicotine dependence

== ENCOUNTER 2017-12-06 07:12 | Day surgery (SDC) | payer MEDICARE, MEDICAID ==
[2017-12-06] MEDS ORDERED: Propofol 10 mg/ml Inj (20 ML) ONE (09:32)
--- NOTE | 2017-12-06 09:33 | CP.SDSHP ---
Same Day Surgery H & P - History Proposed Procedure: enteroscopy Pre-Op Diagnosis: iron deficiency anemia - Previous Medical/Surgical History Cardiac: Hypertension, ASHD/CAD Endocrine/Metabolic: Diabetes, Obesity - Allergies Allergies: Allergies No Known Allergies Allergy (Verified 12/06/17 07:53) - Physical Exam General Appearance: NAD Vital Signs: Vital Signs 12/06/17 12/06/17 08:03 08:23 Temperature 98 F Pulse Rate 80 80 Respiratory 20 Rate Blood Pressure 156/65 H O2 Sat by Pulse 97 Oximetry Mental Status: Alert & Oriented x3 Neuro: WNL Heart: WNL Lungs: WNL GI: WNL - {Optional Preform as Required} Abdomen: WNL - Impression Pt. Evaluated Today:Candidate for Anesthesia & Procedure: Yes - Date & Time Date: 12/06/17 Time: 09:33 Short Stay Discharge - Short Stay Discharge Admitting Diagnosis/Reason for Visit: IRON DEFICIENCY ANEMIA Disposition: HOME/ ROUTINE
[2017-12-06 10:22] VITALS: TEMP 97.1; O2SAT 98
[2017-12-06 10:48] VITALS: RESP 14
[2017-12-06 10:49] VITALS: BP 137/57; PULSE 79
== END 2017-12-06 11:15 | disposition home or self-care (01) ==
LOC: C.ENDO 07:12
PROVIDERS: ATTEND Internal Medicine Gastroenterology
DX: D50.9 Iron deficiency anemia, unspecified (principal); I10 Essential (primary) hypertension; E11.9 Type 2 diabetes mellitus without complications; I25.10 Atherosclerotic heart disease of native coronary artery without angina pectoris; E66.9 Obesity, unspecified
CPT/HCPCS: 43235; 82948; J2001; J2704

== ENCOUNTER 2017-12-13 08:38 | Inpatient (IN) | payer MEDICARE, MEDICAID ==
[2017-12-13 08:38] VITALS: BMI 35.2
--- NOTE | 2017-12-13 09:32 | C.PDOC ---
History Of Present Illness 67-year-old female, PMHx includes open heart surgery, s/p pacemaker/ defibrillator, diabetes, presents to the emergency department with complaints of dark stools and generalized weakness. Patient states she was recently admitted for same complaint. Patient recently had colonoscopy and upper endoscopy. Time Seen by Provider: 12/13/17 08:55 Chief Complaint (Nursing): GI Problem History Per: Patient History/Exam Limitations: no limitations Past Medical History Reviewed: Historical Data, Nursing Documentation, Vital Signs Vital Signs: Last Vital Signs Temp 97.8 F 12/13/17 11:11 Pulse 84 12/13/17 11:11 Resp 19 12/13/17 11:11 BP 129/72 12/13/17 11:11 Pulse Ox 100 12/13/17 11:26 - Medical History PMH: Anemia, Anxiety, Arthritis (KNEES; LEGS), Asthma, Cardia Arrhythmia, CHF, Depression, Gastritis, HTN, Hypercholesterolemia Surgical History: Cholecystectomy, Coronary Stent (3), Endoscopy - [facility] Procedures (06/18/17) (06/18/17) EXCISION OF ASCENDING COLON, ENDO (06/18/17) EXCISION OF SIGMOID COLON, ENDO (06/18/17) EXCISION OF TRANSVERSE COLON, ENDO (06/18/17) TRANSFUSE NONAUT RED BLOOD CELLS IN PERIPH VEIN, PERC (06/18/17) Family History: States: No Known Family Hx - Social History Hx Alcohol Use: No Hx Substance Use: No - Immunization History Hx Tetanus Toxoid Vaccination: No Hx Influenza Vaccination: No Hx Pneumococcal Vaccination: No Review Of Systems Except As Marked, All Systems Reviewed And Found Negative. Constitutional: Positive for: Weakness. Negative for: Fever Cardiovascular: Negative for: Chest Pain Respiratory: Negative for: Shortness of Breath Gastrointestinal: Positive for: Melena. Negative for: Vomiting Musculoskeletal: Negative for: Back Pain Neurological: Negative for: Weakness, Numbness, Headache, Dizziness Physical Exam - Physical Exam Appears: Non-toxic, No Acute Distress Skin: Normal Color, Warm, Dry, No Rash Head: Normacephalic Eye(s): bilateral: PERRL Nose: Normal Oral Mucosa: Moist Lips: Normal Appearing Neck: Normal ROM Cardiovascular: Rhythm Regular, No Murmur Respiratory: Normal Breath Sounds, No Accessory Muscle Use Gastrointestinal/Abdominal: Soft, No Tenderness Rectal: Heme Positive, No Hemorrhoids, No Mass, No Tenderness Extremity: Normal ROM, No Deformity, No Swelling Neurological/Psych: Oriented x3, Normal Speech ED Course And Treatment - Laboratory Results Result Diagrams: 12/13/17 09:28 12/13/17 09:28 Lab Interpretation: Abnormal ECG: Interpreted By Me ECG Rhythm: Sinus Rhythm ECG Interpretation: No Acute Changes Rate From EC O2 Sat by Pulse Oximetry: 100 (RA) Pulse Ox Interpretation: Normal - Radiology CXR: Interpreted by Me CXR Interpretation: Yes: No Acute Disease Progress Note: I unit PC ordered. Case discussed with Dr Sadler who request admission to hospitalist. Case discussed with hospitalist who agrees to admit Reassessment Condition: Improved - Physician Consult Information Physician Contacted: Soco Hdz Outcome Of Conversation: admit Disposition Discussed With .: Soco Hdz Doctor Will See Patient In The: Hospital - Disposition Disposition: HOSPITALIZED Disposition Time: 11:00 Condition: STABLE - POA Present On Arrival: None - Clinical Impression Clinical Impression: Gastrointestinal hemorrhage, Anemia, Symptomatic anemia - Scribe Statement The provider has reviewed the documentation as recorded by the Scribe (Belen Caraballo) All medical record entries made by the Scribe were at my direction and personally dictated by me. I have reviewed the chart and agree that the record accurately reflects my personal performance of the history, physical exam, medical decision making, and the department course for this patient. I have also personally directed, reviewed, and agree with the discharge instructions and disposition. Decision To Admit - Pt Status Changed To: Hospital Disposition Of: Inpatient - Admit Certification Admit to Inpatient:: After my assessment, the patient will require hospitalization for at least two midnights. This is because of the severity of symptoms shown, intensity of services needed, and/or the medical risk in this patient being treated as an outpatient. - InPatient: Physician Admission Certification: I certify that this patient requires 2 or more midnights of care for the following reason:: Anemia. GI Bleeding - . Bed Request Type: Regular Admitting Physician: Soco Hdz Patient Diagnosis: Gastrointestinal hemorrhage, Anemia, Symptomatic anemia
[2017-12-13 09:34] LABS: BASO # 0.1 K/uL (0.0-0.2); BASO % 1.3 % (0.0-2.0); EOS # 0.1 K/uL (0.0-0.7); EOS % 1.2 % (0.0-4.0); HEMOGLOBIN 7.5 g/dL (11.0-16.0); LYMPH # 1.5 K/uL (1.0-4.3); LYMPH % 22.3 % (20.0-40.0); MEAN CELL VOLUME 85.6 fL (81.0-99.0); MEAN CORPUSCULAR HEMOGLOBIN 28.5 pg (27.0-31.0); MEAN CORPUSCULAR HGB CONC 33.3 g/dL (33.0-37.0); MEAN PLATELET VOLUME 9.4 fL (7.2-11.7); MONO # 0.5 K/uL (0.0-0.8); NEUT # 4.5 K/uL (1.8-7.0); NEUT % 67.2 % (50.0-75.0); RBC 2.64 Mil/uL (3.80-5.20); RED CELL DISTRIBUTION WIDTH 19.5 % (11.5-14.5); WHITE BLOOD COUNT 6.6 K/uL (4.8-10.8)
[2017-12-13 09:39] LABS: INR 1.3; PROTHROMBIN TIME 14.2 SECONDS (9.7-12.2)
[2017-12-13 09:46] LABS: ALB/GLOB RATIO 0.9 (1.0-2.1); ALBUMIN 3.7 g/dL (3.5-5.0); ALT/SGPT 17 U/L (9-52); AST/SGOT 22 U/L (14-36); BLOOD UREA NITROGEN 12 mg/dL (7-17); CALCIUM 8.8 mg/dl (8.6-10.4); GFR AFRICAN-AMERICAN > 60; GFR NON-AFRICAN AMERICAN > 60; LIPASE 70 U/L (23-300)
--- NOTE | 2017-12-13 09:54 | RAD ---
PROCEDURE: CHEST RADIOGRAPH, 1 VIEW HISTORY: SOB COMPARISON: Chest radiograph dated 10/19/2017. FINDINGS: LUNGS: Prominence of the pulmonary vasculature may be secondary to AP technique and/or pulmonary vascular congestion. No focal consolidation. PLEURA: No pneumothorax or pleural fluid seen. CARDIOVASCULAR: AICD/pacemaker redemonstrated. Prior sternotomy with sternal wires and surgical clips redemonstrated. Atherosclerotic aortic calcifications. Cardiomediastinal silhouette stably enlarged. OSSEOUS STRUCTURES: Unchanged. VISUALIZED UPPER ABDOMEN: Normal. OTHER FINDINGS: None. IMPRESSION: Prominence of the pulmonary vasculature may be secondary to AP technique and/or pulmonary vascular congestion. No focal consolidation or pleural effusion.
[2017-12-13] MEDS ORDERED: Sodium Chloride 0.9% 1,000 ML IV SCH (13:30)
[2017-12-13] MEDS: (Novolin R) Insulin Human Regular 100 units/ml vial SC SCH ×2 (13:44→18:41)
[2017-12-13] MEDS ORDERED: Peg-Electrolyte Oral Soln 4L (Golytely) PO ONE (15:00)
--- NOTE | 2017-12-13 16:15 | CP.PCM.HP ---
<Tre Veronica - Last Filed: 12/13/17 16:20> History of Present Illness - History of Present Illness History of Present Illness: Patient is a 67F with a PMH of CABG, DM, Asthma and history of GI bleed comes to the ED with a CC of a weak of weakness, SOB and 7 days of melena. Patient states she has bee having dark stool gfor one week similar to a prior episode she had last month at which time she was admitted to the hospital and was transfused as well as having an EGD by Dr. Davis. At that time Dr. Davis advised she go to [facility] for intervention for a finding the patient is unable to accurately describe but what sounds like a small intestinal ulcer. She denies any abdominal pain or hematemesis. She has no other complaints at this time. In the ED her HgB was found to be 7.5. Dr. Davis transfused the patient one unit and is planning to scope the patient. PMH: DM, CAD, Asthma, GI Bleed PSH: CAGB, Lap nivia FH: unremarkable SH: denies smoking, drinking, drugs All: NKA Present on Admission - Present on Admission Any Indicators Present on Admission: No Past Patient History - Infectious Disease Hx of Infectious Diseases: None - Past Medical History & Family History Past Medical History?: Yes - Past Social History Smoking Status: Never Smoked - CARDIAC Hx Cardia Arrhythmia: Yes Hx Congestive Heart Failure: Yes Hx Hypercholesterolemia: Yes Hx Hypertension: Yes - PULMONARY Hx Asthma: Yes - NEUROLOGICAL Hx Neurological Disorder: No Hx Seizures: No Hx Transient Ischemic Attacks (TIA): No - HEENT Hx HEENT Problems: No Hx Cataracts: Yes (RIGHT EYE) - RENAL Hx Chronic Kidney Disease: No - ENDOCRINE/METABOLIC Hx Endocrine Disorders: Yes Hx Diabetes Mellitus Type 1: Yes - HEMATOLOGICAL/ONCOLOGICAL Hx Anemia: Yes - INTEGUMENTARY Hx Dermatological Problems: No - MUSCULOSKELETAL/RHEUMATOLOGICAL Hx Musculoskeletal Disorders: No Hx Falls: No - GASTROINTESTINAL Hx Gastritis: Yes - GENITOURINARY/GYNECOLOGICAL Hx Genitourinary Disorders: No - PSYCHIATRIC Hx Psychophysiologic Disorder: No Hx Substance Use: No - SURGICAL HISTORY Hx Cholecystectomy: Yes Hx Coronary Stent: Yes (3) - ANESTHESIA Hx Anesthesia: Yes Hx Anesthesia Reactions: No Hx Malignant Hyperthermia: No Meds Allergies/Adverse Reactions: Allergies Allergy/AdvReac Type Severity Reaction Status Date / Time No Known Allergies Allergy Verified 12/06/17 07:53 Physical Exam - Constitutional Appears: Well - Head Exam Head Exam: ATRAUMATIC, NORMAL INSPECTION, NORMOCEPHALIC - Eye Exam Eye Exam: EOMI, Normal appearance, PERRL Pupil Exam: NORMAL ACCOMODATION, PERRL - ENT Exam ENT Exam: Mucous Membranes Moist, Normal Exam - Neck Exam Neck exam: Positive for: Normal Inspection - Respiratory Exam Respiratory Exam: Clear to Auscultation Bilateral, NORMAL BREATHING PATTERN - Cardiovascular Exam Cardiovascular Exam: REGULAR RHYTHM - GI/Abdominal Exam GI & Abdominal Exam: Normal Bowel Sounds, Soft. absent: Tenderness - Extremities Exam Extremities exam: Positive for: normal inspection - Back Exam Back exam: NORMAL INSPECTION - Neurological Exam Neurological exam: Alert, CN II-XII Intact, Normal Gait, Oriented x3, Reflexes Normal - Psychiatric Exam Psychiatric exam: Normal Affect, Normal Mood - Skin Skin Exam: Dry, Intact, Normal Color, Warm Results - Vital Signs Recent Vital Signs: Last Vital Signs Temp 97.6 F 12/13/17 15:37 Pulse 85 12/13/17 15:37 Resp 20 12/13/17 15:37 BP 135/51 L 12/13/17 15:37 Pulse Ox 96 12/13/17 12:01 - Labs Result Diagrams: 12/13/17 09:28 12/13/17 09:28 Labs: Laboratory Results - last 24 hr 12/13/17 12/13/17 12/13/17 09:09 09:28 09:28 WBC 6.6 RBC 2.64 L Hgb 7.5 L Hct 22.6 L MCV 85.6 MCH 28.5 MCHC 33.3 RDW 19.5 H Plt Count 131 MPV 9.4 Neut % (Auto) 67.2 Lymph % (Auto) 22.3 [place] % (Auto) 8.0 Eos % (Auto) 1.2 Baso % (Auto) 1.3 Neut # (Auto) 4.5 Lymph # (Auto) 1.5 [place] # (Auto) 0.5 Eos # (Auto) 0.1 Baso # (Auto) 0.1 PT INR Sodium 144 Potassium 3.9 Chloride 107 Carbon Dioxide 26 Anion Gap 15 BUN 12 Creatinine 0.6 L Est GFR ( Amer) > 60 Est GFR (Non-Af Amer) > 60 POC Glucose (mg/dL) 133 H Random Glucose 139 H Calcium 8.8 Total Bilirubin 0.5 AST 22 ALT 17 Alkaline Phosphatase 70 Total Protein 7.8 Albumin 3.7 Globulin 4.1 H Albumin/Globulin Ratio 0.9 L Lipase 70 Blood Type Antibody Screen 12/13/17 12/13/17 09:28 09:28 WBC RBC Hgb Hct MCV MCH MCHC RDW Plt Count MPV Neut % (Auto) Lymph % (Auto) [place] % (Auto) Eos % (Auto) Baso % (Auto) Neut # (Auto) Lymph # (Auto) [place] # (Auto) Eos # (Auto) Baso # (Auto) PT 14.2 H INR 1.3 Sodium Potassium Chloride Carbon Dioxide Anion Gap BUN Creatinine Est GFR ( Amer) Est GFR (Non-Af Amer) POC Glucose (mg/dL) Random Glucose Calcium Total Bilirubin AST ALT Alkaline Phosphatase Total Protein Albumin Globulin Albumin/Globulin Ratio Lipase Blood Type O POSITIVE Antibody Screen Negative Assessment & Plan - Assessment and Plan (Free Text) Assessment: GI Bleed GI (Ryan) - f/u reccs Protonix 40 IV Q12 Plan for scope tomorrow Transfuse 1 unit HTN Norvasc 2.5 PO QD HCTZ 12.5 PO QD CAD Losartan 100 PO QD Crestor 10 PO HS Asthma Singulair 10 PO HS DM ISS PPX VTE CI due to GI Bleed <Soco Hdz - Last Filed: 12/13/17 17:07> Results - Vital Signs Recent Vital Signs: Last Vital Signs Temp 97.6 F 12/13/17 15:37 Pulse 85 12/13/17 15:37 Resp 20 12/13/17 15:37 BP 135/51 L 12/13/17 15:37 Pulse Ox 96 12/13/17 12:01 - Labs Result Diagrams: 12/13/17 09:28 12/13/17 09:28 Labs: Laboratory Results - last 24 hr 12/13/17 12/13/17 12/13/17 09:09 09:28 09:28 WBC 6.6 RBC 2.64 L Hgb 7.5 L Hct 22.6 L MCV 85.6 MCH 28.5 MCHC 33.3 RDW 19.5 H Plt Count 131 MPV 9.4 Neut % (Auto) 67.2 Lymph % (Auto) 22.3 [place] % (Auto) 8.0 Eos % (Auto) 1.2 Baso % (Auto) 1.3 Neut # (Auto) 4.5 Lymph # (Auto) 1.5 [place] # (Auto) 0.5 Eos # (Auto) 0.1 Baso # (Auto) 0.1 PT INR Sodium 144 Potassium 3.9 Chloride 107 Carbon Dioxide 26 Anion Gap 15 BUN 12 Creatinine 0.6 L Est GFR ( Amer) > 60 Est GFR (Non-Af Amer) > 60 POC Glucose (mg/dL) 133 H Random Glucose 139 H Calcium 8.8 Total Bilirubin 0.5 AST 22 ALT 17 Alkaline Phosphatase 70 Total Protein 7.8 Albumin 3.7 Globulin 4.1 H Albumin/Globulin Ratio 0.9 L Lipase 70 Blood Type Antibody Screen 12/13/17 12/13/17 09:28 09:28 WBC RBC Hgb Hct MCV MCH MCHC RDW Plt Count MPV Neut % (Auto) Lymph % (Auto) [place] % (Auto) Eos % (Auto) Baso % (Auto) Neut # (Auto) Lymph # (Auto) [place] # (Auto) Eos # (Auto) Baso # (Auto) PT 14.2 H INR 1.3 Sodium Potassium Chloride Carbon Dioxide Anion Gap BUN Creatinine Est GFR ( Amer) Est GFR (Non-Af Amer) POC Glucose (mg/dL) Random Glucose Calcium Total Bilirubin AST ALT Alkaline Phosphatase Total Protein Albumin Globulin Albumin/Globulin Ratio Lipase Blood Type O POSITIVE Antibody Screen Negative Attending/Attestation - Attestation I have personally seen and examined this patient.: Yes I have fully participated in the care of the patient.: Yes I have reviewed all pertinent clinical information: Yes Notes (Text): Patient was seen and examined at ER. Complaining of johnnie for a week.Feeling weak.s/p EGD and colonoscopy.History and plan of care d/w Resident Discussed with DR Davis As per Dr Davis push enteroscopy tomorrow given ongoing suspected small bowel bleeding. Will prep with 2L golytely today, NPO after midnight. I agree with the resident's documentation of the assessment and the plan. We will hold her Diabetic meds and asprin Transfuse 1 unit blood.
--- NOTE | 2017-12-13 16:43 | CP.PCM.CON ---
History of Present Illness - History of Present Illness History of Present Illness: Asked by hospitalist team for a GI consultation on this patient. 67 year old female with history of obesity, CAD/CABG, DM, HTN, CHF s/p ICD, who presents to hospital for evaluation of progressive fatigue and dark colored stool for the past one week. She has recently undergone outpatient workup for unexplained iron deficiency anemia with capsule endoscopy positive for mid/distal small bowel bleeding. She underwent subsequent endoscopic small bowel enteroscopy which did not show active bleeding, though was limited due to significant food retention. Today she describes fatigue with minimal exertion though denies chest pain, abdominal pain, nausea, vomiting, fever/chills, weight loss. She also reports dark colored stool with each bowel movement for the past one week. Review of vitals from today are normal. Social history: former smoker, no ETOH use Family history: sister (breast cancer) Review of Systems - Review of Systems Review of Systems: - All other comprehensive 12 point review of systems performed, negative - Constitutional Constitutional: Fatigue - Cardiovascular Cardiovascular: absent: Acrocyanosis, Chest Pain, Chest Pain at Rest, Chest Pain with Activity, Claudication, Diaphoresis, Dyspnea, Dyspnea on Exertion, Edema, Irregular Heart Rhythm, Pain Radiating to Arm/Neck/Jaw, Leg Edema, Leg Ulcers, Lightheadedness, Orthopnea, Palpitations, Paroxysmal Nocturnal Dyspnea, Pedal Edema, Radiating Pain, Rapid Heart Rate, Slow Heart Rate, Syncope, Other - Respiratory Respiratory: Dyspnea - Gastrointestinal Gastrointestinal: Melena - Musculoskeletal Musculoskeletal: absent: Abnormal Gait, Arthralgias, Atrophy, Back Pain, Deformity, Joint Swelling, Limited Range of Motion, Loss of Height, Muscle Cramps, Muscle Weakness, Myalgias, Neck Pain, Numbness, Radiating Pain into Limb , Stiffness, Tingling, Other - Neurological Neurological: absent: Abnormal Gait, Abnormal Hearing, Abnormal Movements, Abnormal Speech, Behavioral Changes, Burning Sensations, Confusion, Convulsions , Disequilibrium, Dizziness, Numbness, Focal Weakness, Frequent Falls, Headaches , Lack of Coordination, Loss of Vision, Memory Loss, Paresthesias, Radicular Pain, Restless Legs, Sensory Deficit, Syncope, Tingling, Tremor, Vertigo, Weakness, Other Visual Disturbances, Other Past Patient History - Infectious Disease Hx of Infectious Diseases: None - Past Medical History & Family History Past Medical History?: Yes - Past Social History Smoking Status: Never Smoked - CARDIAC Hx Cardia Arrhythmia: Yes Hx Congestive Heart Failure: Yes Hx Hypercholesterolemia: Yes Hx Hypertension: Yes - PULMONARY Hx Asthma: Yes - NEUROLOGICAL Hx Neurological Disorder: No Hx Seizures: No Hx Transient Ischemic Attacks (TIA): No - HEENT Hx HEENT Problems: No Hx Cataracts: Yes (RIGHT EYE) - RENAL Hx Chronic Kidney Disease: No - ENDOCRINE/METABOLIC Hx Endocrine Disorders: Yes Hx Diabetes Mellitus Type 1: Yes - HEMATOLOGICAL/ONCOLOGICAL Hx Anemia: Yes - INTEGUMENTARY Hx Dermatological Problems: No - MUSCULOSKELETAL/RHEUMATOLOGICAL Hx Musculoskeletal Disorders: No Hx Falls: No - GASTROINTESTINAL Hx Gastritis: Yes - GENITOURINARY/GYNECOLOGICAL Hx Genitourinary Disorders: No - PSYCHIATRIC Hx Psychophysiologic Disorder: No Hx Substance Use: No - SURGICAL HISTORY Hx Cholecystectomy: Yes Hx Coronary Stent: Yes (3) - ANESTHESIA Hx Anesthesia: Yes Hx Anesthesia Reactions: No Hx Malignant Hyperthermia: No Meds Allergies/Adverse Reactions: Allergies Allergy/AdvReac Type Severity Reaction Status Date / Time No Known Allergies Allergy Verified 12/06/17 07:53 - Medications Medications: Current Medications Amlodipine Besylate (Norvasc) 2.5 mg PO DAILY [facility] Escitalopram Oxalate (Lexapro) 10 mg PO DAILY [facility] Hydrochlorothiazide (Microzide) 12.5 mg PO DAILY [facility] Insulin Human Regular (Novolin R) 0 unit SC Q6H [facility] PRN Reason: Protocol Last Admin: 12/13/17 13:44 Dose: Not Given Losartan Potassium (Cozaar) 100 mg PO DAILY [facility] Montelukast Sodium (Singulair) 10 mg PO HS [facility] Nebivolol (Bystolic) 10 mg PO DAILY [facility] Pantoprazole Sodium (Protonix Inj) 40 mg IVP Q12H [facility] Rosuvastatin Calcium (Crestor) 20 mg PO HS [facility] Physical Exam - Constitutional Appears: Non-toxic, No Acute Distress - Head Exam Head Exam: NORMAL INSPECTION - Eye Exam Eye Exam: EOMI, Normal appearance - ENT Exam ENT Exam: Mucous Membranes Moist - Respiratory Exam Respiratory Exam: Clear to Auscultation Bilateral - Cardiovascular Exam Cardiovascular Exam: REGULAR RHYTHM, +S1, +S2 Additional comments: mid sternal scar present ICD present on L anterior chest wall - GI/Abdominal Exam GI & Abdominal Exam: Normal Bowel Sounds, Soft Additional comments: obese, non-tender to palpation in four quadrants no palpable hepato/splenomegaly - Extremities Exam Extremities exam: Positive for: normal inspection - Neurological Exam Neurological exam: Alert, CN II-XII Intact, Normal Gait, Oriented x3, Reflexes Normal - Psychiatric Exam Psychiatric exam: Normal Affect, Normal Mood - Skin Skin Exam: Dry, Intact, Normal Color, Warm Results - Vital Signs Recent Vital Signs: Last Vital Signs Temp 97.6 F 12/13/17 15:37 Pulse 85 12/13/17 15:37 Resp 20 12/13/17 15:37 BP 135/51 L 12/13/17 15:37 Pulse Ox 96 12/13/17 12:01 - Labs Result Diagrams: 12/13/17 09:28 12/13/17 09:28 Labs: Laboratory Results - last 24 hr 12/13/17 12/13/17 12/13/17 09:09 09:28 09:28 WBC 6.6 RBC 2.64 L Hgb 7.5 L Hct 22.6 L MCV 85.6 MCH 28.5 MCHC 33.3 RDW 19.5 H Plt Count 131 MPV 9.4 Neut % (Auto) 67.2 Lymph % (Auto) 22.3 [place] % (Auto) 8.0 Eos % (Auto) 1.2 Baso % (Auto) 1.3 Neut # (Auto) 4.5 Lymph # (Auto) 1.5 [place] # (Auto) 0.5 Eos # (Auto) 0.1 Baso # (Auto) 0.1 PT INR Sodium 144 Potassium 3.9 Chloride 107 Carbon Dioxide 26 Anion Gap 15 BUN 12 Creatinine 0.6 L Est GFR ( Amer) > 60 Est GFR (Non-Af Amer) > 60 POC Glucose (mg/dL) 133 H Random Glucose 139 H Calcium 8.8 Total Bilirubin 0.5 AST 22 ALT 17 Alkaline Phosphatase 70 Total Protein 7.8 Albumin 3.7 Globulin 4.1 H Albumin/Globulin Ratio 0.9 L Lipase 70 Blood Type Antibody Screen 12/13/17 12/13/17 09:28 09:28 WBC RBC Hgb Hct MCV MCH MCHC RDW Plt Count MPV Neut % (Auto) Lymph % (Auto) [place] % (Auto) Eos % (Auto) Baso % (Auto) Neut # (Auto) Lymph # (Auto) [place] # (Auto) Eos # (Auto) Baso # (Auto) PT 14.2 H INR 1.3 Sodium Potassium Chloride Carbon Dioxide Anion Gap BUN Creatinine Est GFR ( Amer) Est GFR (Non-Af Amer) POC Glucose (mg/dL) Random Glucose Calcium Total Bilirubin AST ALT Alkaline Phosphatase Total Protein Albumin Globulin Albumin/Globulin Ratio Lipase Blood Type O POSITIVE Antibody Screen Negative Assessment & Plan - Assessment and Plan (Free Text) Assessment: CAD/CABG CHF s/p ICD Obesity DM / HTN Symptomatic iron deficiency anemia Plan: - Clear liquid diet as tolerated - Transfuse 1 U PRBC and continue to monitor H/H - Continue with PPI therapy - Will plan to repeat push enteroscopy tomorrow given ongoing suspected small bowel bleeding. Will prep with 2L golytely today, NPO after midnight. - Will continue to monitor patient clinical course
[2017-12-13 22:22] LABS: SQUAMOUS EPITHIAL 4 /hpf (0-5); URINE BACTERIA RARE (<OCC); URINE BILIRUBIN NEGATIVE (NEGATIVE); URINE BLOOD NEGATIVE (NEGATIVE); URINE CLARITY Hazy (Clear); URINE COLOR Yellow (YELLOW); URINE GLUCOSE (UA) NORMAL (Normal); URINE LEUKOCYTE ESTERASE NEG Leu/uL (Negative); URINE PROTEIN 1+ mg/dL (NEGATIVE); URINE UROBILINOGEN NORMAL mg/dL (0.2-1.0)
[2017-12-14] MEDS: (Novolin R) Insulin Human Regular 100 units/ml vial SC SCH ×3 (01:50→14:17)
[2017-12-14 07:35] LABS: BASO # 0.1 K/uL (0.0-0.2); BASO % 1.1 % (0.0-2.0); EOS # 0.1 K/uL (0.0-0.7); EOS % 2.1 % (0.0-4.0); HEMOGLOBIN 8.4 g/dL (11.0-16.0); LYMPH # 1.9 K/uL (1.0-4.3); LYMPH % 26.9 % (20.0-40.0); MEAN CELL VOLUME 84.6 fL (81.0-99.0); MEAN CORPUSCULAR HEMOGLOBIN 27.8 pg (27.0-31.0); MEAN CORPUSCULAR HGB CONC 32.9 g/dL (33.0-37.0); MEAN PLATELET VOLUME 9.3 fL (7.2-11.7); MONO # 0.6 K/uL (0.0-0.8); MONO % 8.5 % (0.0-10.0); NEUT # 4.3 K/uL (1.8-7.0); NEUT % 61.4 % (50.0-75.0); RBC 3.03 Mil/uL (3.80-5.20); RED CELL DISTRIBUTION WIDTH 18.4 % (11.5-14.5); WHITE BLOOD COUNT 7.1 K/uL (4.8-10.8)
[2017-12-14 07:37] LABS: ALB/GLOB RATIO 0.9 (1.0-2.1); ALBUMIN 3.7 g/dL (3.5-5.0); ALT/SGPT 12 U/L (9-52); AST/SGOT 29 U/L (14-36); BLOOD UREA NITROGEN 10 mg/dL (7-17); CALCIUM 9.2 mg/dl (8.6-10.4); GFR AFRICAN-AMERICAN > 60; GFR NON-AFRICAN AMERICAN > 60
[2017-12-14] MEDS ORDERED: Etomidate 20 mg/10ml Inj IV ONE (13:04)
[2017-12-14] MEDS ORDERED: Midazolam 2 MG/2 ML VIAL ONE (13:04)
[2017-12-14] MEDS ORDERED: Lactated Ringer's 1,000 ML IV ONE (13:09)
[2017-12-14 16:14] VITALS: BP 136/73; PULSE 76; RESP 20; TEMP 98.2; O2SAT 94
== END 2017-12-14 17:53 | disposition home or self-care (01) | DRG 812 ==
LOC: C.ER 08:38 → C.9E 10:34 → C.3T 11:07
PROVIDERS: ADMIT Internal Medicine; ATTEND Internal Medicine
PROC: 30233N1 Transfusion of Nonautologous Red Blood Cells into Peripheral Vein, Percutaneous Approach (ICD-10-PCS; principal; 2017-12-13)
PROC: 0D598ZZ Destruction of Duodenum, Via Natural or Artificial Opening Endoscopic (ICD-10-PCS; 2017-12-14)
DX: D50.9 Iron deficiency anemia, unspecified (principal); K92.1 Melena; K26.9 Duodenal ulcer, unspecified as acute or chronic, without hemorrhage or perforation; E10.9 Type 1 diabetes mellitus without complications; E66.9 Obesity, unspecified; K29.70 Gastritis, unspecified, without bleeding; Z68.35 Body mass index [BMI] 35.0-35.9, adult; E78.00 Pure hypercholesterolemia, unspecified; I11.0 Hypertensive heart disease with heart failure; I25.10 Atherosclerotic heart disease of native coronary artery without angina pectoris; I50.9 Heart failure, unspecified; J45.909 Unspecified asthma, uncomplicated; M17.0 Bilateral primary osteoarthritis of knee; Z79.4 Long term (current) use of insulin; Z80.3 Family history of malignant neoplasm of breast; Z87.891 Personal history of nicotine dependence; Z90.49 Acquired absence of other specified parts of digestive tract; Z95.0 Presence of cardiac pacemaker; Z95.1 Presence of aortocoronary bypass graft

== ENCOUNTER 2017-12-22 13:24 | Observation (INO) | payer MEDICARE, MEDICAID ==
[2017-12-22 13:38] VITALS: BMI 35.0
--- NOTE | 2017-12-22 14:37 | C.PDOC ---
History Of Present Illness 67 y/o female with pacemaker and defibrillator presents to ED sent by Dr. Sadler for further evaluation on fluid in lungs. Patient states she saw community health agent yesterday who told her she had fluids in lungs and to see PMD. Patient saw PMD today who instructed she come to ED for further evaluation. Patient c/o fatigue with exertion and heavy breathing when walking, denies chest pain, sob, vomiting , leg swelling or any other complaints at this time. Time Seen by Provider: 12/22/17 13:58 Chief Complaint (Nursing): Shortness Of Breath History Per: Patient History/Exam Limitations: no limitations Onset/Duration Of Symptoms: Days Current Symptoms Are (Timing): Still Present Past Medical History Reviewed: Historical Data, Nursing Documentation, Vital Signs Vital Signs: Last Vital Signs Temp 97.9 F 12/23/17 07:00 Pulse 91 H 12/23/17 10:25 Resp 20 12/23/17 07:00 BP 104/58 L 12/23/17 10:25 Pulse Ox 95 12/23/17 14:02 - Medical History PMH: Anemia, Anxiety, Arthritis (KNEES; LEGS), Asthma, Cardia Arrhythmia, CHF, Depression, Gastritis, HTN, Hypercholesterolemia Surgical History: Cholecystectomy, Coronary Stent (3), Endoscopy - [facility] (06/18/17) (06/18/17) DESTRUCTION OF DUODENUM, ENDO (12/13/17) EXCISION OF ASCENDING COLON, ENDO (06/18/17) EXCISION OF SIGMOID COLON, ENDO (06/18/17) EXCISION OF TRANSVERSE COLON, ENDO (06/18/17) TRANSFUSE NONAUT RED BLOOD CELLS IN PERIPH VEIN, PERC (12/13/17) Family History: States: No Known Family Hx - Social History Hx Alcohol Use: No Hx Substance Use: No - Immunization History Hx Tetanus Toxoid Vaccination: No Hx Influenza Vaccination: No Hx Pneumococcal Vaccination: No Review Of Systems Constitutional: Negative for: Fever, Chills Cardiovascular: Negative for: Chest Pain Respiratory: Positive for: SOB with Excertion Gastrointestinal: Negative for: Nausea, Vomiting Skin: Negative for: Rash Physical Exam - Physical Exam Appears: Non-toxic, No Acute Distress Skin: Warm, Dry, No Rash Head: Atraumatic, Normacephalic Oral Mucosa: Moist Neck: Normal ROM, Supple Chest: Other (AICD to left upper chest wall) Cardiovascular: Rhythm Regular Respiratory: Rales (at bases b/l), No Rhonchi, No Wheezing Gastrointestinal/Abdominal: Soft, No Tenderness, No Guarding, No Rebound Extremity: No Pedal Edema, Capillary Refill (<2 seconds) Neurological/Psych: Oriented x3, Normal Speech, Normal Cognition ED Course And Treatment - Laboratory Results Result Diagrams: 12/23/17 11:18 12/22/17 14:44 ECG: Interpreted By Me, Viewed By Me ECG Rhythm: Sinus Rhythm (w/frequent atrial-placed complexes and premature atrial complexes w/ aberrant conduction) Interpretation Of ECG: Left axis deviation Rate From EC (BPM) O2 Sat by Pulse Oximetry: 95 (ra) Pulse Ox Interpretation: Normal - Other Rad CXR X-Ray: Viewed By Me, Read By Radiologist Interpretation: IMPRESSION: No active disease. No acute/significant interval changes. 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 - Scribe Statement The provider has reviewed the documentation as recorded by the Dianelysibkristofer Liu All medical record entries made by the Scribkristofer were at my direction and personally dictated by me. I have reviewed the chart and agree that the record accurately reflects my personal performance of the history, physical exam, medical decision making, and the department course for this patient. I have also personally directed, reviewed, and agree with the discharge instructions and disposition.
[2017-12-22 14:54] LABS: BASO # 0.1 K/uL (0.0-0.2); BASO % 1.1 % (0.0-2.0); EOS # 0.1 K/uL (0.0-0.7); EOS % 1.2 % (0.0-4.0); HEMOGLOBIN 8.2 g/dL (11.0-16.0); LYMPH # 1.7 K/uL (1.0-4.3); LYMPH % 22.1 % (20.0-40.0); MEAN CELL VOLUME 85.1 fL (81.0-99.0); MEAN CORPUSCULAR HEMOGLOBIN 27.4 pg (27.0-31.0); MEAN CORPUSCULAR HGB CONC 32.2 g/dL (33.0-37.0); MONO # 0.5 K/uL (0.0-0.8); MONO % 6.5 % (0.0-10.0); NEUT # 5.3 K/uL (1.8-7.0); NEUT % 69.1 % (50.0-75.0); NRBC % 0.1 % (0.0-2.0); RBC 3.01 Mil/uL (3.80-5.20); RED CELL DISTRIBUTION WIDTH 18.6 % (11.5-14.5); WHITE BLOOD COUNT 7.7 K/uL (4.8-10.8)
--- NOTE | 2017-12-22 15:01 | RAD ---
PROCEDURE: CHEST RADIOGRAPH, 1 VIEW HISTORY: SOB COMPARISON: 12/13/2017 FINDINGS: LUNGS: Clear. PLEURA: No pneumothorax or pleural fluid seen. CARDIOVASCULAR: Cardiomegaly. No evidence of acute, significant cardiovascular disease. Position/ configuration of pacemaker Satisfactory. OSSEOUS STRUCTURES: No significant abnormalities. VISUALIZED UPPER ABDOMEN: Normal. OTHER FINDINGS: None. IMPRESSION: No active disease. No acute/significant interval changes.
[2017-12-22 15:08] LABS: ALB/GLOB RATIO 0.9 (1.0-2.1); ALBUMIN 3.9 g/dL (3.5-5.0); ALT/SGPT 13 U/L (9-52); AST/SGOT 29 U/L (14-36); BLOOD UREA NITROGEN 11 mg/dL (7-17); CALCIUM 9.3 mg/dl (8.6-10.4); GFR AFRICAN-AMERICAN > 60; GFR NON-AFRICAN AMERICAN > 60
[2017-12-22 15:17] LABS: B-TYPE NATRIURETIC PEPTIDE 1540 pg/mL (0-900)
[2017-12-22 15:43] LABS: SQUAMOUS EPITHIAL 10 /hpf (0-5); URINE BILIRUBIN NEGATIVE (NEGATIVE); URINE BLOOD NEGATIVE (NEGATIVE); URINE CLARITY Hazy (Clear); URINE COLOR Yellow (YELLOW); URINE GLUCOSE (UA) NORMAL (Normal); URINE LEUKOCYTE ESTERASE NEG Leu/uL (Negative); URINE PROTEIN 2+ mg/dL (NEGATIVE)
[2017-12-22] MEDS ORDERED: Albuterol HFA 90 mcg/actuation (8 g) INH PRN (20:02)
[2017-12-22] MEDS: (Novolog) Insulin Aspart, Recombinant 100 u/ml 10 ml vial SC SCH (22:09)
[2017-12-23] MEDS: (Novolog) Insulin Aspart, Recombinant 100 u/ml 10 ml vial SC SCH ×4 (08:30→21:18)
[2017-12-23] MEDS ORDERED: CYCLOSPORINE OP SCH (10:00)
[2017-12-23] MEDS ORDERED: HYDROCHLOROTHIAZIDE PO SCH (10:00)
[2017-12-23] MEDS ORDERED: LOSARTAN PO SCH (10:00)
[2017-12-23] MEDS ORDERED: INSULIN LISPRO MIX SC SCH (10:00)
[2017-12-23] MEDS: Pantoprazole 40 mg EC Tab PO SCH (10:28)
[2017-12-23 11:25] LABS: HEMOGLOBIN 9.7 g/dL (11.0-16.0); MEAN CELL VOLUME 84.4 fL (81.0-99.0); MEAN CORPUSCULAR HEMOGLOBIN 27.8 pg (27.0-31.0); MEAN CORPUSCULAR HGB CONC 32.9 g/dL (33.0-37.0); MEAN PLATELET VOLUME 9.8 fL (7.2-11.7); RBC 3.49 Mil/uL (3.80-5.20); RED CELL DISTRIBUTION WIDTH 17.8 % (11.5-14.5); WHITE BLOOD COUNT 8.2 K/uL (4.8-10.8)
[2017-12-23] MEDS: Ferric Sodium Gluconat Complex 62.5 mg/5 ml Vial IVPB SCH (13:59)
--- NOTE | 2017-12-23 14:12 | CP.PCM.CON ---
<Timothy Bernal - Last Filed: 12/23/17 14:22> History of Present Illness - History of Present Illness History of Present Illness: Initial PGY4 GI Consult Note Beryl Yañez is a 67F with hx of obesity, CAD/CABG, DM, HTN, CHF s/p ICD, who presents to hospital for evaluation of chest pain and SOB. 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 Her PMD instructed her to come to ED for further evaluation. Patient c/o fatigue with exertion and heavy breathing when walking She has recently undergone outpatient workup for unexplained iron deficiency anemia with push enteroscopy, which revealed no sig bleeding, after a capsule endoscopy was positive for mid/ distal small bowel bleeding. She underwent subsequent endoscopic small bowel enteroscopy which did not show active bleeding, though was limited due to significant food retention. Today she describes fatigue with minimal exertion though denies chest pain, abdominal pain, nausea, vomiting, fever/chills, weight loss. She denies any BRBPR, melena, hematemsis or [id number] enemas. Review of vitals from today are normal. Social history: former smoker, no ETOH use PSHx: CABGx3, Defibrillator, Cholecystectomy, tubal ligation FHx: Father - CAD/LA; Mother - unknown cancer; Brother - CAD; Sister - Breast cancer Social: Former smoker (>20 years ago), denies EtOH or illicit drug use Endo: Colon -09/2017 - Appendiceal orifice polyp with focal adenomatous changes EGD/Colon - 06/2017 - H pylori positive gastritis, 3 tubular adenomas Push enteroscopy 12/06/17 and 12/16/17; no signs of active bleeding Past Patient History - Infectious Disease Hx of Infectious Diseases: None - Past Medical History & Family History Past Medical History?: Yes - Past Social History Smoking Status: Never Smoked - CARDIAC Hx Cardia Arrhythmia: Yes Hx Congestive Heart Failure: Yes Hx Hypercholesterolemia: Yes Hx Hypertension: Yes - PULMONARY Hx Asthma: Yes - NEUROLOGICAL Hx Seizures: No Hx Transient Ischemic Attacks (TIA): No - HEENT Hx HEENT Problems: Yes Hx Cataracts: Yes (RIGHT EYE) - RENAL Hx Chronic Kidney Disease: No - ENDOCRINE/METABOLIC Hx Endocrine Disorders: Yes Hx Diabetes Mellitus Type 1: Yes - HEMATOLOGICAL/ONCOLOGICAL Hx Anemia: Yes - INTEGUMENTARY Hx Dermatological Problems: No - MUSCULOSKELETAL/RHEUMATOLOGICAL Hx Arthritis: Yes (KNEES; LEGS) - GASTROINTESTINAL Hx Gastritis: Yes - GENITOURINARY/GYNECOLOGICAL Hx Genitourinary Disorders: No - PSYCHIATRIC Hx Anxiety: Yes Hx Depression: Yes Hx Substance Use: No - SURGICAL HISTORY Hx Cholecystectomy: Yes Hx Coronary Stent: Yes (3) - ANESTHESIA Hx Anesthesia: Yes Hx Anesthesia Reactions: No Hx Malignant Hyperthermia: No Meds Allergies/Adverse Reactions: Allergies Allergy/AdvReac Type Severity Reaction Status Date / Time No Known Allergies Allergy Verified 12/22/17 13:37 - Medications Medications: Current Medications Albuterol (Ventolin Hfa 90 Mcg/Actuation (8 G)) 2 puff INH RQ4 PRN PRN Reason: Shortness of Breath Alprazolam (Xanax) 0.25 mg PO TID PRN PRN Reason: Anxiety Stop: 12/29/17 20:03 Amlodipine Besylate (Norvasc) 2.5 mg PO DAILY [facility] Last Admin: 12/23/17 10:27 Dose: Not Given Aspirin (Aspirin Chewable) 81 mg PO DAILY [facility] Last Admin: 12/23/17 10:28 Dose: Not Given Escitalopram Oxalate (Lexapro) 10 mg PO DAILY [facility] Last Admin: 12/23/17 10:28 Dose: 10 mg Ferric Sodium Gluconate Complex (Ferrlecit) 125 mg IVPB DAILY [facility] Stop: 12/28/17 13:01 Last Admin: 12/23/17 13:59 Dose: 125 mg Furosemide (Lasix) 20 mg IVP Q12H [facility] Last Admin: 12/23/17 08:48 Dose: 20 mg Glimepiride (Amaryl) 4 mg PO BID [facility] Last Admin: 12/23/17 10:26 Dose: Not Given Home Med (Cyclosporine [Restasis]) 0.05 ml OP DAILY [facility] Hydrochlorothiazide (Microzide) 12.5 mg PO DAILY [facility] Last Admin: 12/23/17 10:27 Dose: Not Given Insulin Aspart (Novolog) 0 unit SC ACHS [facility] PRN Reason: Protocol Last Admin: 12/23/17 12:04 Dose: Not Given Losartan Potassium (Cozaar) 50 mg PO DAILY [facility] Metformin HCl (Glucophage Xr) 750 mg PO BID [facility] Last Admin: 12/23/17 10:26 Dose: Not Given Montelukast Sodium (Singulair) 10 mg PO HS [facility] Last Admin: 12/22/17 22:07 Dose: 10 mg Nebivolol (Bystolic) 5 mg PO DAILY [facility] Last Admin: 12/23/17 14:04 Dose: 5 mg Pantoprazole Sodium (Protonix Ec Tab) 40 mg PO DAILY [facility] Last Admin: 12/23/17 10:28 Dose: 40 mg Rosuvastatin Calcium (Crestor) 5 mg PO HS [facility] Last Admin: 12/22/17 22:13 Dose: 5 mg Physical Exam - Constitutional Appears: Well, No Acute Distress - Head Exam Head Exam: ATRAUMATIC, NORMOCEPHALIC - Eye Exam Eye Exam: Normal appearance - ENT Exam ENT Exam: Mucous Membranes Moist, Normal Exam - Neck Exam Neck exam: Positive for: Normal Inspection - Respiratory Exam Respiratory Exam: Clear to Auscultation Bilateral, NORMAL BREATHING PATTERN. absent: Wheezes, Respiratory Distress - Cardiovascular Exam Cardiovascular Exam: REGULAR RHYTHM, +S1, +S2 - GI/Abdominal Exam GI & Abdominal Exam: Normal Bowel Sounds. absent: Diminished Bowel Sounds, Distended, Firm, Guarding, Hernia, Organomegaly, Rigid - Extremities Exam Extremities exam: Positive for: pedal edema. Negative for: joint swelling - Neurological Exam Neurological exam: Alert, Oriented x3 - Psychiatric Exam Psychiatric exam: Normal Affect, Normal Mood - Skin Skin Exam: Dry, Intact, Normal Color, Warm Results - Vital Signs Recent Vital Signs: Last Vital Signs Temp 97.9 F 12/23/17 07:00 Pulse 76 12/23/17 14:03 Resp 20 12/23/17 07:00 BP 122/57 L 12/23/17 14:03 Pulse Ox 95 12/23/17 14:05 - Labs Result Diagrams: 12/23/17 11:18 12/22/17 14:44 Labs: Laboratory Results - last 24 hr 12/22/17 12/22/17 12/22/17 14:44 14:44 15:36 WBC 7.7 RBC 3.01 L Hgb 8.2 L Hct 25.6 L MCV 85.1 MCH 27.4 MCHC 32.2 L RDW 18.6 H Plt Count 133 MPV 10.0 Neut % (Auto) 69.1 Lymph % (Auto) 22.1 Woodruff % (Auto) 6.5 Eos % (Auto) 1.2 Baso % (Auto) 1.1 Neut # (Auto) 5.3 Lymph # (Auto) 1.7 Woodruff # (Auto) 0.5 Eos # (Auto) 0.1 Baso # (Auto) 0.1 Sodium 143 Potassium 4.2 Chloride 104 Carbon Dioxide 23 Anion Gap 19 BUN 11 Creatinine 0.6 L Est GFR ( Amer) > 60 Est GFR (Non-Af Amer) > 60 POC Glucose (mg/dL) Random Glucose 138 H Calcium 9.3 Total Bilirubin 1.1 AST 29 ALT 13 Alkaline Phosphatase 68 Troponin I < 0.0120 NT-Pro-B Natriuret Pep 1540 H Total Protein 8.3 Albumin 3.9 Globulin 4.4 H Albumin/Globulin Ratio 0.9 L Urine Color Yellow Urine Clarity Hazy Urine pH 7.0 Ur Specific [place] 1.018 Urine Protein 2+ H Urine Glucose (UA) Normal Urine Ketones Negative Urine Blood Negative Urine Nitrate Negative Urine Bilirubin Negative Urine Urobilinogen 4.0 H Ur Leukocyte Esterase Neg Urine WBC (Auto) 4 Urine RBC (Auto) 1 Ur Squamous Epith Cells 10 H Blood Type Antibody Screen 12/22/17 12/22/17 12/22/17 17:41 17:42 18:41 WBC RBC Hgb Hct MCV MCH MCHC RDW Plt Count MPV Neut % (Auto) Lymph % (Auto) Woodruff % (Auto) Eos % (Auto) Baso % (Auto) Neut # (Auto) Lymph # (Auto) Woodruff # (Auto) Eos # (Auto) Baso # (Auto) Sodium Potassium Chloride Carbon Dioxide Anion Gap BUN Creatinine Est GFR ( Amer) Est GFR (Non-Af Amer) POC Glucose (mg/dL) 69 72 87 Random Glucose Calcium Total Bilirubin AST ALT Alkaline Phosphatase Troponin I NT-Pro-B Natriuret Pep Total Protein Albumin Globulin Albumin/Globulin Ratio Urine Color Urine Clarity Urine pH Ur Specific [place] Urine Protein Urine Glucose (UA) Urine Ketones Urine Blood Urine Nitrate Urine Bilirubin Urine Urobilinogen Ur Leukocyte Esterase Urine WBC (Auto) Urine RBC (Auto) Ur Squamous Epith Cells Blood Type Antibody Screen 12/22/17 12/22/17 12/23/17 22:27 22:30 06:39 WBC RBC Hgb Hct MCV MCH MCHC RDW Plt Count MPV Neut % (Auto) Lymph % (Auto) Woodruff % (Auto) Eos % (Auto) Baso % (Auto) Neut # (Auto) Lymph # (Auto) Woodruff # (Auto) Eos # (Auto) Baso # (Auto) Sodium Potassium Chloride Carbon Dioxide Anion Gap BUN Creatinine Est GFR ( Amer) Est GFR (Non-Af Amer) POC Glucose (mg/dL) 83 84 Random Glucose Calcium Total Bilirubin AST ALT Alkaline Phosphatase Troponin I NT-Pro-B Natriuret Pep Total Protein Albumin Globulin Albumin/Globulin Ratio Urine Color Urine Clarity Urine pH Ur Specific [place] Urine Protein Urine Glucose (UA) Urine Ketones Urine Blood Urine Nitrate Urine Bilirubin Urine Urobilinogen Ur Leukocyte Esterase Urine WBC (Auto) Urine RBC (Auto) Ur Squamous Epith Cells Blood Type O POSITIVE Antibody Screen Negative 12/23/17 12/23/17 11:18 11:49 WBC 8.2 RBC 3.49 L Hgb 9.7 L Hct 29.5 L MCV 84.4 MCH 27.8 MCHC 32.9 L RDW 17.8 H Plt Count 154 MPV 9.8 Neut % (Auto) Lymph % (Auto) Woodruff % (Auto) Eos % (Auto) Baso % (Auto) Neut # (Auto) Lymph # (Auto) Woodruff # (Auto) Eos # (Auto) Baso # (Auto) Sodium Potassium Chloride Carbon Dioxide Anion Gap BUN Creatinine Est GFR ( Amer) Est GFR (Non-Af Amer) POC Glucose (mg/dL) 124 H Random Glucose Calcium Total Bilirubin AST ALT Alkaline Phosphatase Troponin I NT-Pro-B Natriuret Pep Total Protein Albumin Globulin Albumin/Globulin Ratio Urine Color Urine Clarity Urine pH Ur Specific [place] Urine Protein Urine Glucose (UA) Urine Ketones Urine Blood Urine Nitrate Urine Bilirubin Urine Urobilinogen Ur Leukocyte Esterase Urine WBC (Auto) Urine RBC (Auto) Ur Squamous Epith Cells Blood Type Antibody Screen Assessment & Plan - Assessment and Plan (Free Text) Assessment: Patient is a 66 year old female with PMHx significant for CAD s/p CABGx3, HTN, DM, anemia, history of colon polyps and H pylori gastritis who presents to the hospital for abnormal blood work with HGB 8.3 (stable from last transfusion) 1. Symptomatic anemia, Microcytic, iron deficiency anemia 2. CHF exacerbation Plan: -Anemia s/p PRBC transfusion and iron -H/H stable 8.3 -CT A/P with nodular liver concerning for cirrhosis, no hx of ETOH, autoimmune and hepatitis workup negative in 2014 -no signs of GI bleed -no GI procedures indicated at this time -Diet as tolerated -Please call with any questions or concerns D/W Dr. Fu <Albert Fu - Last Filed: 12/23/17 16:44> Meds - Medications Medications: Current Medications Albuterol (Ventolin Hfa 90 Mcg/Actuation (8 G)) 2 puff INH RQ4 PRN PRN Reason: Shortness of Breath Alprazolam (Xanax) 0.25 mg PO TID PRN PRN Reason: Anxiety Stop: 12/29/17 20:03 Amlodipine Besylate (Norvasc) 2.5 mg PO DAILY [facility] Last Admin: 12/23/17 10:27 Dose: Not Given Aspirin (Aspirin Chewable) 81 mg PO DAILY [facility] Last Admin: 12/23/17 10:28 Dose: Not Given Escitalopram Oxalate (Lexapro) 10 mg PO DAILY [facility] Last Admin: 12/23/17 10:28 Dose: 10 mg Ferric Sodium Gluconate Complex (Ferrlecit) 125 mg IVPB DAILY [facility] Stop: 12/28/17 13:01 Last Admin: 12/23/17 13:59 Dose: 125 mg Furosemide (Lasix) 20 mg IVP Q12H [facility] Last Admin: 12/23/17 08:48 Dose: 20 mg Glimepiride (Amaryl) 4 mg PO BID [facility] Last Admin: 12/23/17 10:26 Dose: Not Given Home Med (Cyclosporine [Restasis]) 0.05 ml OP DAILY [facility] Hydrochlorothiazide (Microzide) 12.5 mg PO DAILY [facility] Last Admin: 12/23/17 10:27 Dose: Not Given Insulin Aspart (Novolog) 0 unit SC ACHS [facility] PRN Reason: Protocol Last Admin: 12/23/17 16:29 Dose: Not Given Losartan Potassium (Cozaar) 50 mg PO DAILY [facility] Metformin HCl (Glucophage Xr) 750 mg PO BID [facility] Last Admin: 12/23/17 10:26 Dose: Not Given Montelukast Sodium (Singulair) 10 mg PO HS [facility] Last Admin: 12/22/17 22:07 Dose: 10 mg Nebivolol (Bystolic) 5 mg PO DAILY [facility] Last Admin: 12/23/17 14:04 Dose: 5 mg Pantoprazole Sodium (Protonix Ec Tab) 40 mg PO DAILY [facility] Last Admin: 12/23/17 10:28 Dose: 40 mg Rosuvastatin Calcium (Crestor) 5 mg PO HS [facility] Last Admin: 12/22/17 22:13 Dose: 5 mg Results - Vital Signs Recent Vital Signs: Last Vital Signs Temp 97.9 F 12/23/17 07:00 Pulse 76 12/23/17 14:03 Resp 20 12/23/17 07:00 BP 122/57 L 12/23/17 14:03 Pulse Ox 95 12/23/17 14:05 - Labs Result Diagrams: 12/23/17 11:18 12/22/17 14:44 Labs: Laboratory Results - last 24 hr 12/22/17 12/22/17 12/22/17 17:41 17:42 18:41 WBC RBC Hgb Hct MCV MCH MCHC RDW Plt Count MPV POC Glucose (mg/dL) 69 72 87 Blood Type Antibody Screen 12/22/17 12/22/17 12/23/17 22:27 22:30 06:39 WBC RBC Hgb Hct MCV MCH MCHC RDW Plt Count MPV POC Glucose (mg/dL) 83 84 Blood Type O POSITIVE Antibody Screen Negative 12/23/17 12/23/17 12/23/17 11:18 11:49 16:21 WBC 8.2 RBC 3.49 L Hgb 9.7 L Hct 29.5 L MCV 84.4 MCH 27.8 MCHC 32.9 L RDW 17.8 H Plt Count 154 MPV 9.8 POC Glucose (mg/dL) 124 H 126 H Blood Type Antibody Screen Attending/Attestation - Attestation I have personally seen and examined this patient.: Yes I have fully participated in the care of the patient.: Yes I have reviewed all pertinent clinical information: Yes Notes (Text): 12/23/17 16:43 67 year old female with h/o obesity, cad s/p cabg, chronic anemia admitted for blood transfusion. No overt signs of GI bleeding. Hgb at baseline. Responded appropriately to transfusion. S/p 2 recent enteroscopies with treatment of a small bowel ulcer. Continue ppi. Outpatient f/u dr. cordon. will sign off
--- NOTE | 2017-12-23 18:31 | CP.PCM.CON ---
History of Present Illness - History of Present Illness History of Present Illness: The pt is a 67 year old woman with CAD, s/p cabg 2011, s/p three stents before cabg. PT had episode of chf IN 2004, and CHF improved after Bi V pacing. pt had VT years ago. Pt has had no angina, no chf episodes. 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 Ain the fall of 2016, the pt noticed some dark stools. She had gi eval then. pt now has again had darks stool, and Hgb was 7.3. EGD revealed duodenal erosions, non bleeding that were cauterized. pt is on ppi. Pt had marked dyspnea, and came back to hospital for anemia. CXR personally reviewed and official report: no chf. TNI negative ECG nsr, atrial pacing. Pt feels much better after transfusion. never had angina. For some reason, pt was told to stop losartan at home, taking it her with bystolic. Review of Systems - Review of Systems All systems: reviewed and no additional remarkable complaints except (as above., ) Past Patient History - Infectious Disease Hx of Infectious Diseases: None - Past Medical History & Family History Past Medical History?: Yes - Past Social History Smoking Status: Never Smoked - CARDIAC Hx Cardia Arrhythmia: Yes Hx Congestive Heart Failure: Yes Hx Hypercholesterolemia: Yes Hx Hypertension: Yes - PULMONARY Hx Asthma: Yes - NEUROLOGICAL Hx Seizures: No Hx Transient Ischemic Attacks (TIA): No - HEENT Hx HEENT Problems: Yes Hx Cataracts: Yes (RIGHT EYE) - RENAL Hx Chronic Kidney Disease: No - ENDOCRINE/METABOLIC Hx Endocrine Disorders: Yes Hx Diabetes Mellitus Type 1: Yes - HEMATOLOGICAL/ONCOLOGICAL Hx Anemia: Yes - INTEGUMENTARY Hx Dermatological Problems: No - MUSCULOSKELETAL/RHEUMATOLOGICAL Hx Arthritis: Yes (KNEES; LEGS) - GASTROINTESTINAL Hx Gastritis: Yes - GENITOURINARY/GYNECOLOGICAL Hx Genitourinary Disorders: No - PSYCHIATRIC Hx Anxiety: Yes Hx Depression: Yes Hx Substance Use: No - SURGICAL HISTORY Hx Cholecystectomy: Yes Hx Coronary Stent: Yes (3) - ANESTHESIA Hx Anesthesia: Yes Hx Anesthesia Reactions: No Hx Malignant Hyperthermia: No Meds Allergies/Adverse Reactions: Allergies Allergy/AdvReac Type Severity Reaction Status Date / Time No Known Allergies Allergy Verified 12/22/17 13:37 - Medications Medications: Current Medications Albuterol (Ventolin Hfa 90 Mcg/Actuation (8 G)) 2 puff INH RQ4 PRN PRN Reason: Shortness of Breath Alprazolam (Xanax) 0.25 mg PO TID PRN PRN Reason: Anxiety Stop: 12/29/17 20:03 Amlodipine Besylate (Norvasc) 2.5 mg PO DAILY [facility] Last Admin: 12/23/17 10:27 Dose: Not Given Aspirin (Aspirin Chewable) 81 mg PO DAILY [facility] Last Admin: 12/23/17 10:28 Dose: Not Given Escitalopram Oxalate (Lexapro) 10 mg PO DAILY [facility] Last Admin: 12/23/17 10:28 Dose: 10 mg Ferric Sodium Gluconate Complex (Ferrlecit) 125 mg IVPB DAILY [facility] Stop: 12/28/17 13:01 Last Admin: 12/23/17 13:59 Dose: 125 mg Furosemide (Lasix) 20 mg IVP Q12H [facility] Last Admin: 12/23/17 08:48 Dose: 20 mg Glimepiride (Amaryl) 4 mg PO BID [facility] Last Admin: 12/23/17 10:26 Dose: Not Given Home Med (Cyclosporine [Restasis]) 0.05 ml OP DAILY [facility] Hydrochlorothiazide (Microzide) 12.5 mg PO DAILY [facility] Last Admin: 12/23/17 10:27 Dose: Not Given Insulin Aspart (Novolog) 0 unit SC ACHS [facility] PRN Reason: Protocol Last Admin: 12/23/17 16:29 Dose: Not Given Losartan Potassium (Cozaar) 50 mg PO DAILY [facility] Metformin HCl (Glucophage Xr) 750 mg PO BID [facility] Last Admin: 12/23/17 10:26 Dose: Not Given Montelukast Sodium (Singulair) 10 mg PO HS [facility] Last Admin: 12/22/17 22:07 Dose: 10 mg Nebivolol (Bystolic) 5 mg PO DAILY [facility] Last Admin: 12/23/17 14:04 Dose: 5 mg Pantoprazole Sodium (Protonix Ec Tab) 40 mg PO DAILY [facility] Last Admin: 12/23/17 10:28 Dose: 40 mg Rosuvastatin Calcium (Crestor) 5 mg PO HS [facility] Last Admin: 12/22/17 22:13 Dose: 5 mg Physical Exam - Head Exam Head Exam: ATRAUMATIC - Eye Exam Eye Exam: EOMI - ENT Exam ENT Exam: Mucous Membranes Moist - Neck Exam Neck exam: Positive for: Normal Inspection - Respiratory Exam Respiratory Exam: Clear to Auscultation Bilateral, NORMAL BREATHING PATTERN - Cardiovascular Exam Cardiovascular Exam: REGULAR RHYTHM - GI/Abdominal Exam GI & Abdominal Exam: Normal Bowel Sounds - Exam External exam: NORMAL EXTERNAL EXAM - Extremities Exam Extremities exam: Positive for: normal inspection - Back Exam Back exam: NORMAL INSPECTION - Neurological Exam Neurological exam: Alert, CN II-XII Intact, Oriented x3, Reflexes Normal - Psychiatric Exam Psychiatric exam: Normal Affect, Normal Mood - Skin Skin Exam: Normal Color Results - Vital Signs Recent Vital Signs: Last Vital Signs Temp 98.1 F 12/23/17 15:10 Pulse 71 12/23/17 15:10 Resp 20 12/23/17 15:10 BP 122/68 12/23/17 15:10 Pulse Ox 95 12/23/17 16:37 - Labs Result Diagrams: 12/23/17 11:18 12/22/17 14:44 Labs: Laboratory Results - last 24 hr 12/22/17 12/22/17 12/22/17 18:41 22:27 22:30 WBC RBC Hgb Hct MCV MCH MCHC RDW Plt Count MPV POC Glucose (mg/dL) 87 83 Blood Type O POSITIVE Antibody Screen Negative 12/23/17 12/23/17 12/23/17 06:39 11:18 11:49 WBC 8.2 RBC 3.49 L Hgb 9.7 L Hct 29.5 L MCV 84.4 MCH 27.8 MCHC 32.9 L RDW 17.8 H Plt Count 154 MPV 9.8 POC Glucose (mg/dL) 84 124 H Blood Type Antibody Screen 12/23/17 16:21 WBC RBC Hgb Hct MCV MCH MCHC RDW Plt Count MPV POC Glucose (mg/dL) 126 H Blood Type Antibody Screen - EKG Data EKG Interpreted by: Myself EKG shows normal: Sinus rhythm (atrial pacing) Assessment & Plan - Assessment and Plan (Free Text) Assessment: 1. Although elevated BNP, cxr shows no congestion. pt has very low CV reserve, and feels much better now after transfusion. 2. Pt's meds hould be adjusted for aggressive treatment of LV dysfunction. Add aldactone now. Continue beta gama. pt will see me in the office this week and i will replace arb with entresto. Will repeat echo as outpatient. pt is stable from CV standpoint.
--- NOTE | 2017-12-23 22:30 | HP ---
HISTORY OF PRESENT ILLNESS: The patient is seen today 12/23/2017. She is a 67-year-old female with history of multiple medical problems presented to my office on the day of admission with symptoms of exertional shortness of breath. The patient has been admitted to the hospital few times in the last 6 months due to recurrent GI bleeding. The patient had a capsule endoscopy done as an outpatient as well as she had endoscopy done on last admission a week ago. The patient had peptic ulcer, duodenal ulcer. The patient was treated also for H. Pylori before. The patient has ischemic cardiomyopathy status post ICD placement. The patient was seen by the Cardiology on the day of admission and she had also volume overload detected. The patient was sent to emergency room where she was evaluated and she was found to have proBNP of 1540. The patient was admitted for further management and she was found also to have hemoglobin of 8 gm. Other review of systems is negative. ALLERGIES: NO KNOWN ALLERGIES. MEDICATIONS: As per MAR. SOCIAL HISTORY: No history of smoking, EtOH or substance abuse. FAMILY HISTORY: Not contributory. PAST MEDICAL HISTORY: Ischemic cardiomyopathy status post PCI status post ICD placement, type 2 diabetes mellitus, hypertension and bronchial asthma. PHYSICAL EXAMINATION: GENERAL: The patient is in bed, not in any cardiopulmonary distress at the time of this examination. VITAL SIGNS: Blood pressure of 104/58, temperature 97.9, respiratory rate 20 and pulse 90. HEENT: Pupils equal, reactive to light. Normal-appearing mucosa of the conjunctiva, oropharynx and nasal membrane mucosa. NECK: Supple. No JVD. No carotid bruit. No lymph node. No thyromegaly. CHEST AND LUNGS: Bilateral symmetrical expansion. Good air exchange. No rales, no rhonchi. CARDIOVASCULAR SYSTEM: PMI not localized. S1, S2. No additional sounds. ABDOMEN: Normoactive bowel sounds. No tenderness. No organomegaly. No masses. EXTREMITIES: No cyanosis, clubbing, no edema. COMPLAINT ANALYST: Alert, awake, oriented x2. No neurological deficit could be appreciated. ASSESSMENT: 1. Symptomatic anemia. 2. Upper gastrointestinal bleeding. 3. Ischemic cardiomyopathy/congestive heart failure both systolic and diastolic with exacerbation by the anemia. 4. Type 2 diabetes mellitus. 5. Hypertension. 6. History of bronchial asthma which is well controlled. PLAN: The patient packed RBCs and since iron saturation was 3% on last admission, we will give the patient intravenous iron as the oral iron upsets her stomach and we will follow the recommendations of both prosthetic dentist and revenue coordinator. We will resume the patient's home medications and will put parameters for blood pressure and heart rate. We will monitor hemoglobin and hematocrit. [facility] MD Doroteo
[2017-12-24 07:49] LABS: BASO # 0.1 K/uL (0.0-0.2); BASO % 1.3 % (0.0-2.0); EOS # 0.2 K/uL (0.0-0.7); EOS % 2.2 % (0.0-4.0); LYMPH # 2.1 K/uL (1.0-4.3); LYMPH % 26.2 % (20.0-40.0); MEAN CELL VOLUME 83.8 fL (81.0-99.0); MEAN CORPUSCULAR HEMOGLOBIN 27.7 pg (27.0-31.0); MEAN CORPUSCULAR HGB CONC 33.1 g/dL (33.0-37.0); MEAN PLATELET VOLUME 9.4 fL (7.2-11.7); MONO # 0.7 K/uL (0.0-0.8); MONO % 9.2 % (0.0-10.0); NEUT # 4.9 K/uL (1.8-7.0); NEUT % 61.1 % (50.0-75.0); RBC 3.61 Mil/uL (3.80-5.20); RED CELL DISTRIBUTION WIDTH 17.7 % (11.5-14.5); WHITE BLOOD COUNT 8.1 K/uL (4.8-10.8)
[2017-12-24] MEDS: (Novolog) Insulin Aspart, Recombinant 100 u/ml 10 ml vial SC SCH ×4 (08:15→21:50)
[2017-12-24] MEDS: Ferric Sodium Gluconat Complex 62.5 mg/5 ml Vial IVPB SCH (10:51)
[2017-12-24] MEDS: Pantoprazole 40 mg EC Tab PO SCH (10:52)
--- NOTE | 2017-12-24 22:11 | PN ---
DATE: 12/24/2017. SUBJECTIVE: The patient is seen today 12/24/2017. She is not in any cardiopulmonary distress. The patient was transfused 1 unit of packed RBCs and she was placed on intravenous iron. PHYSICAL EXAMINATION: VITAL SIGNS: Blood pressure 120/70, temperature 98.2, respiratory rate 18 and pulse 80. HEENT: Pupils equal, reactive to light. Slightly pale mucosa of the conjunctivae. NECK: Supple. No JVD. No carotid bruit. No lymph nodes. No thyromegaly. CHEST AND LUNGS: Bilaterally symmetrical expansion. Good air exchange. No rales, no rhonchi. CARDIOVASCULAR SYSTEM: PMI not localized. S1, S2. No additional sounds. ABDOMEN: Normoactive bowel sounds. No tenderness. No organomegaly. No masses. EXTREMITIES: No cyanosis, no clubbing, no edema. MANAGEMENT MANAGER: Alert, awake, oriented x2. No neurological deficits could be appreciated. ASSESSMENT: Symptomatic anemia, exacerbation of congestive heart failure both systolic and diastolic secondary to anemia status post implantable cardioverter-defibrillator placement, type 2 diabetes mellitus, hypertension. PLAN: Continue current IV iron and follow with metal patternmaker regarding the source of GI bleeding. Son Sadler MD
[2017-12-25] MEDS: (Novolog) Insulin Aspart, Recombinant 100 u/ml 10 ml vial SC SCH ×2 (08:11→12:30)
[2017-12-25] MEDS: Ferric Sodium Gluconat Complex 62.5 mg/5 ml Vial IVPB SCH (10:49)
[2017-12-25] MEDS: Pantoprazole 40 mg EC Tab PO SCH (10:51)
[2017-12-25 11:04] LABS: BASO # 0.1 K/uL (0.0-0.2); BASO % 1.3 % (0.0-2.0); EOS # 0.1 K/uL (0.0-0.7); EOS % 1.6 % (0.0-4.0); HEMOGLOBIN 10.4 g/dL (11.0-16.0); LYMPH # 1.9 K/uL (1.0-4.3); LYMPH % 22.7 % (20.0-40.0); MEAN CELL VOLUME 83.8 fL (81.0-99.0); MEAN CORPUSCULAR HEMOGLOBIN 27.2 pg (27.0-31.0); MEAN CORPUSCULAR HGB CONC 32.5 g/dL (33.0-37.0); MEAN PLATELET VOLUME 9.4 fL (7.2-11.7); MONO # 0.7 K/uL (0.0-0.8); MONO % 8.4 % (0.0-10.0); NEUT # 5.5 K/uL (1.8-7.0); NRBC % 0.1 % (0.0-2.0); RBC 3.82 Mil/uL (3.80-5.20); RED CELL DISTRIBUTION WIDTH 17.8 % (11.5-14.5); WHITE BLOOD COUNT 8.3 K/uL (4.8-10.8)
[2017-12-25 11:22] LABS: BLOOD UREA NITROGEN 19 mg/dL (7-17); CALCIUM 9.8 mg/dl (8.6-10.4); GFR AFRICAN-AMERICAN > 60; GFR NON-AFRICAN AMERICAN > 60
--- NOTE | 2017-12-25 13:24 | VASCLAB ---
PROCEDURE: Lower Extremity Venous Duplex Exam. HISTORY: r/o DVT PRIORS: None. TECHNIQUE: Bilateral common femoral, femoral, popliteal and posterior tibial, peroneal and great saphenous veins were evaluated. Flow was assessed with color Doppler, compressibility, assessment of phasic flow and augmentation response. Report prepared by Pao Eisenberg, JOHANNA, RVS FINDINGS: RIGHT: 1. Common Femoral Vein: 1.1. Compressibility - Fully compressible: Thrombus - None : Flow - Phasic: Augmentation -Normal: Reflux - None. 2. Femoral Vein: 2.1. Compressibility - Fully compressible: Thrombus - None : Flow - Phasic: Augmentation -Normal: Reflux - None. 3. Popliteal Vein: 3.1. Compressibility - Fully compressible: Thrombus - None : Flow - Phasic: Augmentation -Normal: Reflux - None. 4. Posterior Tibial Vein: 4.1. Compressibility - Fully compressible: Thrombus - None: Flow - Phasic: Augmentation -Normal: Reflux - None. 5. Peroneal Vein: 5.1. Compressibility - Fully compressible: Thrombus - None: Flow - Phasic: Augmentation -Normal: Reflux - None. 6. Great Saphenous Vein: 6.1. Compressibility - Fully compressible: Thrombus - None: Flow - Phasic: Augmentation - Normal: Reflux - None. LEFT: 1. Common Femoral Vein:. 1.1. Compressibility - Fully compressible: Thrombus - None: Flow - Phasic: Augmentation -Normal: Reflux - None. 2. Femoral Vein: 2.1. Compressibility - Fully compressible: Thrombus - None: Flow - Phasic: Augmentation -Normal: Reflux - None. 3. Popliteal Vein: 3.1. Compressibility - Fully compressible: Thrombus - None : Flow - Phasic: Augmentation -Normal: Reflux - None. 4. Posterior Tibial Vein: 4.1. Compressibility - Fully compressible: Thrombus - None: Flow - Phasic: Augmentation -Normal: Reflux - None. 5. Peroneal Vein: 5.1. Compressibility - Fully compressible: Thrombus - None: Flow - Phasic: Augmentation -Normal: Reflux - None. 6. Great Saphenous Vein: 6.1. removed for CABG. OTHER FINDINGS: Right: None significant. Left: Left Greater saphenous vein was removed previously. IMPRESSION: Right: No evidence of deep or superficial vein thrombosis of the right lower extremity. Normal valve function noted of the right side. Left: No evidence of deep or superficial vein thrombosis of the left lower extremity. Normal valve function noted of the left side.
--- NOTE | 2017-12-25 13:32 | CP.PCM.PN ---
Subjective - Date & Time of Evaluation Date of Evaluation: 12/25/17 Time of Evaluation: 11:00 - Subjective Subjective: Patient seen today , denies any chest pain, sob, palpitations, dizziness , abdominal pain, N/V/d HGB- stable and improved after 1 unit of PRBC - 10.4>10>9.7>8.2 Objective - Vital Signs/Intake and Output Vital Signs (last 24 hours): Temp Pulse Resp BP Pulse Ox 98.0 F 70 20 128/51 L 95 12/25/17 07:00 12/25/17 12:00 12/25/17 07:00 12/25/17 10:53 12/25/17 07:00 - Medications Medications: Current Medications Albuterol (Ventolin Hfa 90 Mcg/Actuation (8 G)) 2 puff INH RQ4 PRN PRN Reason: Shortness of Breath Alprazolam (Xanax) 0.25 mg PO TID PRN PRN Reason: Anxiety Stop: 12/29/17 20:03 Aspirin (Aspirin Chewable) 81 mg PO DAILY [facility] Last Admin: 12/25/17 10:52 Dose: 81 mg Escitalopram Oxalate (Lexapro) 10 mg PO DAILY [facility] Last Admin: 12/25/17 10:52 Dose: 10 mg Ferric Sodium Gluconate Complex (Ferrlecit) 125 mg IVPB DAILY [facility] Stop: 12/28/17 13:01 Last Admin: 12/25/17 10:49 Dose: 125 mg Furosemide (Lasix) 20 mg IVP Q12H [facility] Last Admin: 12/25/17 10:53 Dose: 20 mg Glimepiride (Amaryl) 4 mg PO BID [facility] Last Admin: 12/25/17 10:55 Dose: Not Given Home Med (Cyclosporine [Restasis]) 0.05 ml OP DAILY [facility] Insulin Aspart (Novolog) 0 unit SC ACHS [facility] PRN Reason: Protocol Last Admin: 12/25/17 08:11 Dose: Not Given Losartan Potassium (Cozaar) 100 mg PO DAILY [facility] Last Admin: 12/25/17 10:51 Dose: 100 mg Metformin HCl (Glucophage Xr) 750 mg PO BID [facility] Last Admin: 12/25/17 10:54 Dose: Not Given Montelukast Sodium (Singulair) 10 mg PO [facility] Last Admin: 12/24/17 21:35 Dose: 10 mg Nebivolol (Bystolic) 5 mg PO DAILY [facility] Last Admin: 12/25/17 10:51 Dose: 5 mg Pantoprazole Sodium (Protonix Ec Tab) 40 mg PO DAILY [facility] Last Admin: 12/25/17 10:51 Dose: 40 mg Rosuvastatin Calcium (Crestor) 5 mg PO HS [facility] Last Admin: 12/24/17 21:35 Dose: 5 mg Spironolactone (Aldactone) 25 mg PO DAILY [facility] Last Admin: 12/25/17 10:51 Dose: 25 mg - Labs Labs: 12/25/17 10:59 12/25/17 10:59 Assessment and Plan - Assessment and Plan (Free Text) Assessment: A/P 67 yr old female with pmhx of Asthma, Cardia Arrhythmia, CHF, Depression, Gastritis, HTN, Hypercholesterolemia admitted with CHF , Symptomatic anemia hgb improved- and stable Patient received ferrlicet IV for iron def. anemia seen by GI recommends -continue PP1 and f/u with Dr. Davis office seen by fabian Delgado for discharge home today and f/u with Dr. Sadler office on Monday Discharge plan discussed with patient, who understands and agrees with plan
[2017-12-25 14:19] VITALS: BP 116/57; PULSE 74; RESP 18; TEMP 97.9; O2SAT 97
--- NOTE | 2017-12-25 15:09 | PCM.HF ---
Heart Failure Core Measure - Heart Failure Ejection Fraction: 40 % or Greater
--- NOTE | 2017-12-26 11:13 | CARD ---
APPROVED REPORT EKG Measurement Heart [id number] <Conclusion> Dual-chamber pacemaker with intermittent pacing noted Underlying rhythm is NSR Left axis deviation Nonspecific intraventricular block T wave abnormality Abnormal ECG
--- NOTE | 2017-12-26 20:12 | DS ---
REASON FOR ADMISSION: This is a 67 years old female with history of multiple medical problems including recurrent GI bleeding was admitted for symptomatic anemia with exacerbation of congestive heart failure. COURSE OF HOSPITALIZATION: The patient was admitted to telemetry floor and she had transfusion of 1 unit of packed RBCs. The patient was found to be iron deficient and the she was started on IV iron. Patient's symptoms remarkably improved and she was discharged home to continue p.o. iron and vitamin C as well as follow with Cardiology and with Gastroenterology. FINAL DIAGNOSES: Symptomatic anemia, recurrent upper gastrointestinal bleeding, congestive heart failure both systolic and diastolic exacerbation, acute on chronic hypertension, type 2 diabetes mellitus, bronchial asthma. [facility] MD Doroteo
== END 2017-12-25 15:21 | disposition home or self-care (01) ==
LOC: C.ER 13:24 → C.9E 15:39 → C.6T 17:04
PROVIDERS: ADMIT Internal Medicine; ATTEND Internal Medicine
DX: D50.9 Iron deficiency anemia, unspecified (principal); I11.0 Hypertensive heart disease with heart failure; I50.40 Unspecified combined systolic (congestive) and diastolic (congestive) heart failure; I25.5 Ischemic cardiomyopathy; E11.9 Type 2 diabetes mellitus without complications; J45.909 Unspecified asthma, uncomplicated; K29.70 Gastritis, unspecified, without bleeding; B96.81 Helicobacter pylori [H. pylori] as the cause of diseases classified elsewhere; E78.00 Pure hypercholesterolemia, unspecified; I25.10 Atherosclerotic heart disease of native coronary artery without angina pectoris; F32.9 Major depressive disorder, single episode, unspecified; E66.9 Obesity, unspecified; Z68.34 Body mass index [BMI] 34.0-34.9, adult; Z95.810 Presence of automatic (implantable) cardiac defibrillator; Z95.5 Presence of coronary angioplasty implant and graft; Z95.1 Presence of aortocoronary bypass graft; Z87.891 Personal history of nicotine dependence; Z86.010 Personal history of colon polyps; Z79.4 Long term (current) use of insulin
CPT/HCPCS: 36415; 36430; 71045; 80048; 80053; 81001; 82948; 83880; 84484; 85025; 85027; 86850; 86900; 86920; 93970; 96374; 97116; 97162; 99285; G0378; G8978; G8979; J1940; J2916; P9051

== ENCOUNTER 2018-07-28 18:18 | Inpatient (IN) | payer OTHER ==
[2018-07-28 18:18] VITALS: BMI 35.0
--- NOTE | 2018-07-28 19:17 | C.PDOC ---
History Of Present Illness 67 year old female presents to the ED complaining of back pain, chest pain, and dyspnea on exertion. Denies any fever, chills, nausea, vomiting, cough, weakness, numbness, urinary symptoms or any other complaints. Time Seen by Provider: 07/28/18 19:14 Chief Complaint (Nursing): Chest Pain History Per: Patient History/Exam Limitations: no limitations Onset/Duration Of Symptoms: Days Current Symptoms Are (Timing): Still Present Severity: Moderate Pain Scale Rating Of: 4 Quality: Dull Associated Symptoms: Dyspnea Alleviating Factors: None Additional History Per: Family Past Medical History Reviewed: Historical Data, Nursing Documentation, Vital Signs Vital Signs: Last Vital Signs Temp 98.7 F 07/28/18 18:23 Pulse 85 07/28/18 18:23 Resp 24 07/28/18 18:23 BP Pulse Ox 100 07/28/18 18:23 - Medical History PMH: Anemia, Anxiety, Arthritis (KNEES; LEGS), Asthma, Cardia Arrhythmia, CHF, Depression, Gastritis, HTN, Hypercholesterolemia Denies: Colonic Polyps, Fractures, Chronic Kidney Disease, Seizures, Sleep Apnea, TIA Surgical History: Cholecystectomy, Coronary Stent (3), Endoscopy - [facility] (06/18/17) (06/18/17) DESTRUCTION OF DUODENUM, ENDO (12/13/17) EXCISION OF ASCENDING COLON, ENDO (06/18/17) EXCISION OF SIGMOID COLON, ENDO (06/18/17) EXCISION OF TRANSVERSE COLON, ENDO (06/18/17) TRANSFUSE NONAUT RED BLOOD CELLS IN PERIPH VEIN, PERC (12/13/17) Family History: States: No Known Family Hx - Social History Hx Alcohol Use: No Hx Substance Use: No - Immunization History Hx Tetanus Toxoid Vaccination: No Hx Influenza Vaccination: No Hx Pneumococcal Vaccination: No Review Of Systems Constitutional: Negative for: Fever, Chills Cardiovascular: Positive for: Chest Pain Respiratory: Positive for: SOB with Excertion. Negative for: Cough Gastrointestinal: Negative for: Nausea, Vomiting Genitourinary: Negative for: Dysuria, Hematuria Musculoskeletal: Positive for: Back Pain Neurological: Negative for: Weakness, Numbness Psych: Negative for: Anxiety Physical Exam - Physical Exam Appears: Non-toxic, No Acute Distress, Other (obese) Skin: Warm, Dry Head: Normacephalic Eye(s): bilateral: Normal Inspection Oral Mucosa: Moist Neck: Supple Chest: Symmetrical, Other (pacemaker ) Cardiovascular: Rhythm Regular, No Murmur Respiratory: No Rales, Rhonchi (scattered), No Wheezing, Other (speaking in full sentences) Gastrointestinal/Abdominal: Soft, No Tenderness, Distention Back: No CVA Tenderness Extremity: No Pedal Edema Extremity: Bilateral: Atraumatic, Normal Color And Temperature, Normal ROM Neurological/Psych: Oriented x3, Normal Speech Gait: Steady ED Course And Treatment - Laboratory Results Result Diagrams: 07/28/18 19:50 07/28/18 19:50 ECG: Interpreted By Me, Viewed By Me ECG Rhythm: Sinus Rhythm, Nonspecific Changes O2 Sat by Pulse Oximetry: 100 (RA) Pulse Ox Interpretation: Normal - Radiology CXR: Interpreted by Me, Viewed By Me CXR Interpretation: Yes: Other (aicd left chest). No: Infiltrates, Fracture, Pnemothorax Progress Note: Blood and urine collected and sent to the lab for analysis. CXR ordered. Results pending. Patient given aspirin 325mg. Disposition Discussed With Dr.: Son Sadler Comment: accepted the pt on his service and took over the care at 9:11 PM Doctor Will See Patient In The: Hospital Counseled Patient/Family Regarding: Studies Performed, Diagnosis - Disposition Disposition: HOSPITALIZED Disposition Time: 20:00 Condition: FAIR Forms: [facility] (Turkmen) - POA Present On Arrival: Poor Glycemic Control - Clinical Impression Clinical Impression: Chest pain, Anemia, UTI (urinary tract infection) - Scribe Statement The provider has reviewed the documentation as recorded by the Scribe Tiana Elmore All medical record entries made by the Scribe were at my direction and personally dictated by me. I have reviewed the chart and agree that the record accurately reflects my personal performance of the history, physical exam, medical decision making, and the department course for this patient. I have also personally directed, reviewed, and agree with the discharge instructions and disposition. Decision To Admit - Pt Status Changed To: Hospital Disposition Of: Inpatient - Admit Certification Admit to Inpatient:: After my assessment, the patient will require hospitalization for at least two midnights. This is because of the severity of symptoms shown, intensity of services needed, and/or the medical risk in this patient being treated as an outpatient. - InPatient: Physician Admission Certification: I certify that this patient requires 2 or more midnights of care for the following reason:: After my assessment, the patient will require hospitalization for at least two midnights. This is because of the severity of symptoms shown, intensity of services needed, and/or the medical risk in this patient being treated as an outpatient. - . Bed Request Type: Telemetry Admitting Physician: Son Sadler Patient Diagnosis: Chest pain, Anemia, UTI (urinary tract infection)
[2018-07-28] MEDS ORDERED: Aspirin 325 mg EC Tablets PO STA (19:22)
[2018-07-28 19:59] LABS: BASO # 0.1 K/uL (0.0-0.2); BASO % 0.9 % (0.0-2.0); EOS # 0.1 K/uL (0.0-0.7); HEMOGLOBIN 9.4 g/dL (11.0-16.0); LYMPH # 2.3 K/uL (1.0-4.3); LYMPH % 23.7 % (20.0-40.0); MEAN CELL VOLUME 88.9 fL (81.0-99.0); MEAN CORPUSCULAR HEMOGLOBIN 29.8 pg (27.0-31.0); MEAN CORPUSCULAR HGB CONC 33.6 g/dL (33.0-37.0); MEAN PLATELET VOLUME 9.9 fL (7.2-11.7); MONO # 0.7 K/uL (0.0-0.8); MONO % 7.1 % (0.0-10.0); NEUT # 6.6 K/uL (1.8-7.0); NEUT % 67.3 % (50.0-75.0); RBC 3.16 Mil/uL (3.80-5.20); RED CELL DISTRIBUTION WIDTH 14.5 % (11.5-14.5); WHITE BLOOD COUNT 9.8 K/uL (4.8-10.8)
[2018-07-28 20:01] LABS: INR 1.2; PROTHROMBIN TIME 13.1 SECONDS (9.7-12.2)
[2018-07-28 20:07] LABS: ALBUMIN 4.1 g/dL (3.5-5.0); ALT/SGPT 18 U/L (9-52); AST/SGOT 38 U/L (14-36); BLOOD UREA NITROGEN 12 mg/dL (7-17); CALCIUM 9.6 mg/dl (8.6-10.4); GFR NON-AFRICAN AMERICAN > 60
[2018-07-28 20:13] LABS: SQUAMOUS EPITHIAL 1 /hpf (0-5); URINE BACTERIA FEW (<OCC); URINE BILIRUBIN NEGATIVE (NEGATIVE); URINE BLOOD NEGATIVE (NEGATIVE); URINE CLARITY Clear (Clear); URINE COLOR Yellow (YELLOW); URINE GLUCOSE (UA) NORMAL (Normal); URINE LEUKOCYTE ESTERASE 2+ Leu/uL (Negative); URINE PROTEIN NEGATIVE (NEGATIVE); URINE UROBILINOGEN NORMAL mg/dL (0.2-1.0)
[2018-07-28] MEDS ORDERED: cefTRIAXone IV 1 gm in Dextros 50 ML IVPB ONE (20:23)
[2018-07-28] MEDS ORDERED: cefTRIAXone 1 gm 1 GM/100 ML BAG IVPB ONE (20:41)
[2018-07-28] MEDS ORDERED: ALBUTEROL SULFATE PO PRN (23:32)
[2018-07-29] MEDS ORDERED: (Novolog) Insulin Aspart, Recombinant 100 u/ml 10 ml vial ONE ×2 (08:16→11:26)
[2018-07-29] MEDS: (Novolog) Insulin Aspart, Recombinant 100 u/ml 10 ml vial SC SCH ×4 (08:20→22:34)
[2018-07-29] MEDS ORDERED: LOSARTAN PO SCH (10:00)
[2018-07-29] MEDS ORDERED: HYDROCHLOROTHIAZIDE PO SCH (10:00)
[2018-07-29] MEDS ORDERED: CYCLOSPORINE OP SCH (10:00)
[2018-07-29] MEDS ORDERED: Home Med 1 UNIT (Omeprazole [Omeprazole] 40 MG) PO SCH (10:00)
[2018-07-29] MEDS: Vitamin B Complex/Vitamin C Tab PO SCH (10:16)
[2018-07-29] MEDS: Pantoprazole 40 mg EC Tab PO SCH (11:08)
[2018-07-29] MEDS: cefTRIAXone IV 1 gm in Dextros 50 ML IVPB SCH (11:08)
[2018-07-29 13:00] LABS: CK-MB 0.61 ng/mL (0.0-3.38)
--- NOTE | 2018-07-29 16:12 | RAD ---
Date of service: 07/28/2018 HISTORY: Chest pain. COMPARISON: Comparison chest 12/22/2017. FINDINGS: LUNGS: There appears to be some minimal right basilar atelectasis. PLEURA: No significant pleural effusion identified, no pneumothorax apparent. CARDIOVASCULAR: Aortic atherosclerotic calcification present. Heart appears enlarged.. Sternotomy wires and CABG clips again noted. No change multi lead pacemaker/defibrillator. No pulmonary vascular congestion. OSSEOUS STRUCTURES: No significant abnormalities. VISUALIZED UPPER ABDOMEN: Normal. OTHER FINDINGS: None. IMPRESSION: Suspect minimal right basilar atelectasis. No other changes.
[2018-07-29] MEDS ORDERED: Albuterol HFA 90 mcg/actuation (8 g) INH PRN (16:45)
--- NOTE | 2018-07-29 22:58 | CP.PCM.CON ---
History of Present Illness - History of Present Illness History of Present Illness: 67 yo female with h/o CAD, s/p CABG 2011; moderate LV dysfunction, EF 35 % in 06/2017; s/p AICD; recurrent episodes of anemia, requiring transfusion; presents to the hospital with dyspnea. States that over the [ast two days has had int ermittent episodes of dyspnea. Denies irc chest pain, palpitations, dizziness, diaphoresis, fever, chills. Increased sodium intake over the holidays. Recently started on Entresto by Dr. Stauffer. On spironolactone for diuretics. Review of Systems - Review of Systems Review of Systems: all others are negative except HPI Past Patient History - Infectious Disease Hx of Infectious Diseases: None - Past Medical History & Family History Past Medical History?: Yes - Past Social History Smoking Status: Former Smoker - CARDIAC Hx Cardia Arrhythmia: Yes Hx Congestive Heart Failure: Yes Hx Hypercholesterolemia: Yes Hx Hypertension: Yes - PULMONARY Hx Asthma: Yes Hx Sleep Apnea: No - NEUROLOGICAL Hx Seizures: No Hx Transient Ischemic Attacks (TIA): No - HEENT Hx HEENT Problems: Yes Hx Cataracts: Yes (RIGHT EYE) - RENAL Hx Chronic Kidney Disease: No - ENDOCRINE/METABOLIC Hx Endocrine Disorders: Yes Hx Diabetes Mellitus Type 1: Yes - HEMATOLOGICAL/ONCOLOGICAL Hx Anemia: Yes - INTEGUMENTARY Hx Dermatological Problems: No - MUSCULOSKELETAL/RHEUMATOLOGICAL Hx Arthritis: Yes (KNEES; LEGS) Hx Falls: No Hx Fractures: No - GASTROINTESTINAL Hx Gastritis: Yes - GENITOURINARY/GYNECOLOGICAL Hx Genitourinary Disorders: No - PSYCHIATRIC Hx Anxiety: Yes Hx Depression: Yes Hx Substance Use: No - SURGICAL HISTORY Hx Cholecystectomy: Yes Hx Coronary Stent: Yes (3) - ANESTHESIA Hx Anesthesia: Yes Hx Anesthesia Reactions: No Hx Malignant Hyperthermia: No Meds Allergies/Adverse Reactions: Allergies Allergy/AdvReac Type Severity Reaction Status Date / Time No Known Allergies Allergy Verified 07/28/18 18:29 - Medications Medications: Current Medications Albuterol (Ventolin Hfa 90 Mcg/Actuation (8 G)) 2 puff INH RQ4 PRN PRN Reason: Shortness of Breath Alprazolam (Xanax) 0.25 mg PO TID PRN PRN Reason: Anxiety Stop: 08/04/18 23:45 Amlodipine Besylate (Norvasc) 2.5 mg PO DAILY [facility] Last Admin: 07/29/18 10:17 Dose: 2.5 mg Escitalopram Oxalate (Lexapro) 10 mg PO DAILY [facility] Last Admin: 07/29/18 09:50 Dose: Not Given Ferrous Sulfate (Feosol) 325 mg PO BID [facility] Last Admin: 07/29/18 19:10 Dose: 325 mg Glimepiride (Amaryl) 4 mg PO DAILY [facility] Home Med (Cyclosporine [Restasis]) 0.05 ml OP DAILY [facility] Hydrochlorothiazide (Microzide) 12.5 mg PO DAILY [facility] Ceftriaxone Sodium (Rocephin Iv 1 Gm Duplex) 50 mls @ 100 mls/hr IVPB DAILY [facility]; Protocol Last Admin: 07/29/18 11:08 Dose: 100 mls/hr Insulin Aspart (Novolog) 0 unit SC ACHS [facility]; Protocol Last Admin: 07/29/18 22:34 Dose: Not Given Losartan Potassium (Cozaar) 100 mg PO DAILY [facility] Metformin HCl (Glucophage Xr) 750 mg PO BID [facility] Last Admin: 07/29/18 22:35 Dose: Not Given Montelukast Sodium (Singulair) 10 mg PO HS [facility] Last Admin: 07/29/18 22:34 Dose: 10 mg Nebivolol (Bystolic) 5 mg PO DAILY [facility] Last Admin: 07/29/18 10:16 Dose: 5 mg Pantoprazole Sodium (Protonix Ec Tab) 40 mg PO DAILY [facility] Last Admin: 07/29/18 11:08 Dose: 40 mg Rosuvastatin Calcium (Crestor) 5 mg PO HS [facility] Last Admin: 07/29/18 22:34 Dose: 5 mg Vitamin B Complex/Vitamin C (Berocca) 1 tab PO DAILY [facility] Last Admin: 07/29/18 10:16 Dose: 1 tab Physical Exam - Constitutional Appears: Non-toxic - Head Exam Head Exam: ATRAUMATIC, NORMOCEPHALIC - Eye Exam Eye Exam: EOMI Pupil Exam: PERRL - ENT Exam ENT Exam: Mucous Membranes Moist - Neck Exam Neck exam: Positive for: Normal Inspection - Respiratory Exam Respiratory Exam: Clear to Auscultation Bilateral. absent: Rales - Cardiovascular Exam Cardiovascular Exam: REGULAR RHYTHM, RRR, +S1, +S2. absent: JVD - GI/Abdominal Exam GI & Abdominal Exam: Soft. absent: Tenderness - Neurological Exam Neurological exam: CN II-XII Intact, Oriented x3 - Psychiatric Exam Psychiatric exam: Normal Affect, Normal Mood - Skin Skin Exam: Normal Color Results - Vital Signs Recent Vital Signs: Last Vital Signs Temp 98.1 F 07/29/18 17:42 Pulse 85 07/29/18 21:27 Resp 18 07/29/18 17:42 BP 107/53 L 07/29/18 17:42 Pulse Ox 98 07/29/18 17:42 - Labs Result Diagrams: 07/28/18 19:50 07/28/18 19:50 Labs: Laboratory Results - last 24 hr 07/29/18 07/29/18 05:57 12:22 Total Creatine Kinase 65 57 CK-MB (Mass) 0.60 0.61 Troponin I < 0.0120 < 0.0120 Assessment & Plan (1) Dyspnea Assessment and Plan: Currently asymptomatic and hemodynamically stable Troponin x 3 is negative Clinically euvolemic CHF exacerbation is less likely Status: Acute (2) Chronic systolic (congestive) heart failure Assessment and Plan: Clinically euvolemic BNP is not elevated Cont with Entresto and spironolactone Cont with nebivolol Status: Acute (3) Atherosclerotic heart disease of [place] coronary artery without angina pectoris Assessment and Plan: Stable CAD Cont wtih aspirin Status: Acute
[2018-07-30 01:27] VITALS: RESP 20
--- NOTE | 2018-07-30 07:31 | HP ---
HISTORY OF PRESENT ILLNESS: The patient is a 67-year-old female with history of multiple medical problems including ischemic cardiomyopathy, status post ICD placement, presented to emergency room with symptoms of easy fatigability and generalized weakness that was noticed for the last two days prior to admission. The patient was evaluated in the emergency room and she was found to have mild pallor. The patient was found also to have a urinary tract infection and she was started on Rocephin while the patient was in the emergency room. Other review of system is negative. ALLERGIES: NO KNOWN ALLERGY. MEDICATIONS: Reviewed as per MAR. PAST MEDICAL HISTORY: Hypertension, coronary artery disease, type 2 diabetes mellitus, and osteoarthritis. SOCIAL HISTORY: No history of smoking, EtOH, or substance abuse. FAMILY HISTORY: Not contributory. PHYSICAL EXAMINATION: GENERAL: The patient is in bed, not in any cardiopulmonary distress. VITAL SIGNS: Blood pressure 121/45, temperature 98.2, respiratory rate 14, and pulse 74. HEENT: Pupils equal, reactive to light. Slightly pale mucosa of the conjunctivae. NECK: Supple. No JVD. No carotid bruit. No lymph node. No thyromegaly. CHEST AND LUNGS: Bilateral symmetrical expansion. Good air exchange. No rales, no rhonchi. CARDIOVASCULAR SYSTEM: PMI not localized. S1, S2. No additional sounds. ABDOMEN: Normoactive bowel sounds. No tenderness or organomegaly. No masses. EXTREMITIES: No cyanosis, no clubbing, no edema. [employer]OP[employer] PROFESSION[employer]: Alert, awake, oriented x3. No neurological deficit could be appreciated. ASSESSMENT: Hemoglobin of 9 which is a drop from previous hemoglobin, rule out gastric bleeding. We will call Cardiology and follow the recommendations. Resume the patient's home medications, and we will monitor hemoglobin and hematocrit. Son Sadler MD
[2018-07-30] MEDS: (Novolog) Insulin Aspart, Recombinant 100 u/ml 10 ml vial SC SCH ×4 (08:23→21:59)
[2018-07-30] MEDS: Vitamin B Complex/Vitamin C Tab PO SCH (09:40)
[2018-07-30] MEDS: Pantoprazole 40 mg EC Tab PO SCH (09:40)
[2018-07-30] MEDS: cefTRIAXone IV 1 gm in Dextros 50 ML IVPB SCH (09:41)
[2018-07-30] MEDS ORDERED: CYCLOSPORINE OP SCH (10:00)
--- NOTE | 2018-07-30 10:00 | CP.PCM.PN ---
Subjective - Date & Time of Evaluation Date of Evaluation: 07/30/18 Time of Evaluation: 09:56 - Subjective Subjective: Pt feels ok: her main complaint is mid to lower back pain when she walks, and dyspnea on exertion. Objective - Vital Signs/Intake and Output Vital Signs (last 24 hours): Temp Pulse Resp BP Pulse Ox 98.0 F 76 20 119/69 96 07/30/18 07:05 07/30/18 07:05 07/30/18 07:05 07/30/18 07:05 07/30/18 07:05 - Medications Medications: Current Medications Albuterol (Ventolin Hfa 90 Mcg/Actuation (8 G)) 2 puff INH RQ4 PRN PRN Reason: Shortness of Breath Alprazolam (Xanax) 0.25 mg PO TID PRN PRN Reason: Anxiety Stop: 08/04/18 23:45 Amlodipine Besylate (Norvasc) 2.5 mg PO DAILY [facility] Last Admin: 07/30/18 09:40 Dose: 2.5 mg Escitalopram Oxalate (Lexapro) 10 mg PO DAILY [facility] Last Admin: 07/30/18 09:40 Dose: 10 mg Ferrous Sulfate (Feosol) 325 mg PO BID [facility] Last Admin: 07/30/18 09:41 Dose: 325 mg Glimepiride (Amaryl) 4 mg PO DAILY [facility] Last Admin: 07/30/18 09:40 Dose: 4 mg Home Med (Cyclosporine [Restasis]) 0.05 ml OP DAILY [facility] Hydrochlorothiazide (Microzide) 12.5 mg PO DAILY [facility] Last Admin: 07/30/18 09:40 Dose: 12.5 mg Ceftriaxone Sodium (Rocephin Iv 1 Gm Duplex) 50 mls @ 100 mls/hr IVPB DAILY [facility]; Protocol Last Admin: 07/30/18 09:41 Dose: 100 mls/hr Insulin Aspart (Novolog) 0 unit SC ACHS [facility]; Protocol Last Admin: 07/30/18 08:23 Dose: 2 units Losartan Potassium (Cozaar) 100 mg PO DAILY [facility] Last Admin: 07/30/18 09:43 Dose: Not Given Metformin HCl (Glucophage Xr) 750 mg PO BID [facility] Last Admin: 07/30/18 09:40 Dose: 750 mg Montelukast Sodium (Singulair) 10 mg PO HS [facility] Last Admin: 07/29/18 22:34 Dose: 10 mg Nebivolol (Bystolic) 5 mg PO DAILY [facility] Last Admin: 07/30/18 09:40 Dose: 5 mg Pantoprazole Sodium (Protonix Ec Tab) 40 mg PO DAILY [facility] Last Admin: 07/30/18 09:40 Dose: 40 mg Rosuvastatin Calcium (Crestor) 5 mg PO HS [facility] Last Admin: 07/29/18 22:34 Dose: 5 mg Vitamin B Complex/Vitamin C (Berocca) 1 tab PO DAILY [facility] Last Admin: 07/30/18 09:40 Dose: 1 tab - Labs Labs: 07/28/18 19:50 07/28/18 19:50 PT 13.1 SECONDS (9.7-12.2) H 07/28/18 19:50 INR 1.2 07/28/18 19:50 APTT 28 SECONDS (21-34) 07/28/18 19:50 - Constitutional Appears: Well - Head Exam Head Exam: ATRAUMATIC - Eye Exam Eye Exam: EOMI - ENT Exam ENT Exam: Mucous Membranes Moist - GI/Abdominal Exam GI & Abdominal Exam: Normal Bowel Sounds - Rectal Exam Rectal Exam: NORMAL INSPECTION - Exam Exam: NORMAL INSPECTION - Extremities Exam Extremities Exam: Full ROM - Back Exam Back Exam: NORMAL INSPECTION - Neurological Exam Neurological Exam: Alert, Awake - Psychiatric Exam Psychiatric exam: Normal Affect - Skin Skin Exam: Dry, Normal Color Assessment and Plan - Assessment and Plan (Free Text) Assessment: 1. Pt has known cardiomyopathy: But she is well compensated: cxr shows no chf, pt is ion NSR, and TNI, BNP normal. Pt is on appropriate meds, with cozaar substituted for entresto. No evidence of CHF or ACS. Continue current meds 2. K was 5.3: repeat k level.
[2018-07-30 11:36] LABS: BLOOD UREA NITROGEN 13 mg/dL (7-17); GFR NON-AFRICAN AMERICAN > 60
[2018-07-30] MEDS: Sacubitril/Valsartan 24-26mg Tab PO SCH ×3 (12:39→21:15)
[2018-07-30 15:12] LABS: BASO # 0.1 K/uL (0.0-0.2); BASO % 1.3 % (0.0-2.0); EOS # 0.2 K/uL (0.0-0.7); EOS % 1.8 % (0.0-4.0); HEMOGLOBIN 9.2 g/dL (11.0-16.0); LYMPH % 23.3 % (20.0-40.0); MEAN CORPUSCULAR HGB CONC 33.6 g/dL (33.0-37.0); MEAN PLATELET VOLUME 9.4 fL (7.2-11.7); MONO # 0.8 K/uL (0.0-0.8); MONO % 9.9 % (0.0-10.0); NEUT # 5.4 K/uL (1.8-7.0); NEUT % 63.7 % (50.0-75.0); NRBC % 0.1 % (0.0-2.0); RBC 3.08 Mil/uL (3.80-5.20); RED CELL DISTRIBUTION WIDTH 14.2 % (11.5-14.5); WHITE BLOOD COUNT 8.5 K/uL (4.8-10.8)
--- NOTE | 2018-07-30 20:59 | CARD ---
APPROVED REPORT Date of service: 07/28/2018 EKG Measurement Heart [id number] <Conclusion> Sinus rhythm with Ventricular paced rhythm. T wave abnormality, consider lateral ischemia Abnormal ECG
--- NOTE | 2018-07-31 01:15 | PN ---
DATE: 07/30/2018 DAILY PROGRESS NOTE SUBJECTIVE: The patient is seen today, 07/30/2018. She is complaining still of generalized weakness and easy fatigability as she walks. PHYSICAL EXAMINATION: VITAL SIGNS: Blood pressure 119/69, temperature 98, respiratory rate 20, and pulse 76. HEENT: Pupils are equal and reactive to light. Normal-appearing mucosa of the conjunctivae, oropharynx and nasal membrane mucosa. NECK: Supple. No JVD. No carotid bruit. No lymph node. No thyromegaly. CHEST AND LUNGS: Bilateral symmetrical expansion. Good air exchange. No rales. No rhonchi. CARDIOVASCULAR SYSTEM: PMI not localized. S1 and S2. No additional sounds. ABDOMEN: Normoactive bowel sounds. No tenderness. No organomegaly. No masses. EXTREMITIES: No cyanosis, no clubbing, no edema. CENTRAL NERVOUS SYSTEMS: Alert, awake, oriented x2. No neurological deficit could be appreciated. ASSESSMENT: 1. Generalized weakness and easy fatigability likely secondary to drop of hemoglobin. 2. History of ischemic cardiomyopathy, status post pacemaker and implantable cardioverter-defibrillator placement. 3. Hypertension. 4. Type 2 diabetes mellitus. PLAN: Continue ferrous sulfate as well as continue ceftriaxone, treating urinary tract infection. Accu-Cheks with insulin coverage. Continue Protonix. Adán MD Doroteo
[2018-07-31] MEDS: (Novolog) Insulin Aspart, Recombinant 100 u/ml 10 ml vial SC SCH ×4 (08:22→22:51)
[2018-07-31] MEDS: cefTRIAXone IV 1 gm in Dextros 50 ML IVPB SCH (10:14)
[2018-07-31] MEDS: Vitamin B Complex/Vitamin C Tab PO SCH (10:15)
[2018-07-31] MEDS: Pantoprazole 40 mg EC Tab PO SCH (10:15)
[2018-07-31] MEDS: Sacubitril/Valsartan 24-26mg Tab PO SCH ×2 (10:15→18:25)
--- NOTE | 2018-07-31 16:50 | CP.PCM.PN ---
Subjective - Date & Time of Evaluation Date of Evaluation: 07/31/18 Time of Evaluation: 16:47 - Subjective Subjective: Pt feels better, back pain resolved and less tired. BP was low today, amlodipine held. Objective - Vital Signs/Intake and Output Vital Signs (last 24 hours): Temp Pulse Resp BP Pulse Ox 98 F 76 20 111/67 97 07/31/18 16:00 07/31/18 16:00 07/31/18 16:00 07/31/18 16:00 07/31/18 16:00 Intake and Output: 07/31/18 07/31/18 06:59 18:59 Intake Total 410 Balance 410 - Medications Medications: Current Medications Albuterol (Ventolin Hfa 90 Mcg/Actuation (8 G)) 2 puff INH RQ4 PRN PRN Reason: Shortness of Breath Alprazolam (Xanax) 0.25 mg PO TID PRN PRN Reason: Anxiety Stop: 08/04/18 23:45 Last Admin: 07/31/18 00:28 Dose: 0.25 mg Amlodipine Besylate (Norvasc) 2.5 mg PO DAILY [facility] Last Admin: 07/31/18 10:15 Dose: 2.5 mg Escitalopram Oxalate (Lexapro) 10 mg PO DAILY [facility] Last Admin: 07/31/18 10:15 Dose: 10 mg Ferrous Sulfate (Feosol) 325 mg PO BID [facility] Last Admin: 07/31/18 10:15 Dose: 325 mg Glimepiride (Amaryl) 4 mg PO DAILY [facility] Last Admin: 07/31/18 10:15 Dose: 4 mg Home Med (Cyclosporine [Restasis]) 0.05 ml OP DAILY [facility] Ceftriaxone Sodium (Rocephin Iv 1 Gm Duplex) 50 mls @ 100 mls/hr IVPB DAILY [facility]; Protocol Last Admin: 07/31/18 10:14 Dose: 100 mls/hr Insulin Aspart (Novolog) 0 unit SC ACHS [facility]; Protocol Last Admin: 07/31/18 12:03 Dose: 3 units Metformin HCl (Glucophage Xr) 750 mg PO BID [facility] Last Admin: 07/31/18 10:15 Dose: 750 mg Montelukast Sodium (Singulair) 10 mg PO HS [facility] Last Admin: 07/30/18 21:22 Dose: 10 mg Nebivolol (Bystolic) 5 mg PO DAILY [facility] Last Admin: 07/31/18 10:15 Dose: 5 mg Pantoprazole Sodium (Protonix Ec Tab) 40 mg PO DAILY [facility] Last Admin: 07/31/18 10:15 Dose: 40 mg Rosuvastatin Calcium (Crestor) 5 mg PO HS [facility] Last Admin: 07/30/18 21:22 Dose: 5 mg Sacubitril/Valsartan (Entresto 24 Mg-26 Mg) 1 tab PO BID [facility] Last Admin: 07/31/18 10:15 Dose: 1 tab Vitamin B Complex/Vitamin C (Berocca) 1 tab PO DAILY [facility] Last Admin: 07/31/18 10:15 Dose: 1 tab - Labs Labs: 07/30/18 15:08 07/30/18 11:17 PT 13.1 SECONDS (9.7-12.2) H 07/28/18 19:50 INR 1.2 07/28/18 19:50 APTT 28 SECONDS (21-34) 07/28/18 19:50 - Head Exam Head Exam: ATRAUMATIC - Eye Exam Eye Exam: EOMI Pupil Exam: NORMAL ACCOMODATION - ENT Exam ENT Exam: Mucous Membranes Moist - Neck Exam Neck Exam: Full ROM, Normal Inspection - Respiratory Exam Respiratory Exam: Clear to Ausculation Bilateral, NORMAL BREATHING PATTERN - Cardiovascular Exam Cardiovascular Exam: REGULAR RHYTHM - GI/Abdominal Exam GI & Abdominal Exam: Soft, Normal Bowel Sounds - Extremities Exam Extremities Exam: Full ROM, Normal Capillary Refill - Back Exam Back Exam: NORMAL INSPECTION - Neurological Exam Neurological Exam: Alert, Awake, CN II-XII Intact - Psychiatric Exam Psychiatric exam: Normal Mood - Skin Skin Exam: Dry Assessment and Plan - Assessment and Plan (Free Text) Assessment: 1. Stable CV status 2. For asymptomatic hypotension, will stop amlodipine
--- NOTE | 2018-08-01 01:11 | PN ---
DATE: 07/31/2018 SUBJECTIVE: The patient is seen today, 07/31/2018. She is still having feeling of easy fatigability and generalized weakness. OBJECTIVE: VITAL SIGNS: Blood pressure 111/67, temperature 98, respiratory rate 20, and pulse 76. HEENT: Slightly pale mucosa of the conjunctivae. NECK: Supple. No JVD. No carotid bruit. No lymph nodes. No thyromegaly. CHEST AND LUNGS: Bilateral symmetrical expansion. Good air exchange. No rales, no rhonchi. CARDIOVASCULAR SYSTEM: PMI not localized. S1, S2. No additional sounds. ABDOMEN: Normoactive bowel sounds. No tenderness. No organomegaly. No masses. EXTREMITIES: No cyanosis, no clubbing, no edema. [employer]: Alert, awake, oriented x2. No neurological deficit could be appreciated. ASSESSMENT: 1. Anemia, status post bleeding peptic ulcer. 2. Type 2 diabetes mellitus. 3. Ischemic cardiomyopathy, status post ICD placement. 4. Type 2 diabetes mellitus. PLAN: Continue current medications and management. Repeat hemoglobin and hematocrit in the morning and transfuse if it is needed. Continue Protonix. Continue Rocephin, also treating urinary tract infection. Son Sadler MD
[2018-08-01 07:47] LABS: BASO # 0.1 K/uL (0.0-0.2); BASO % 1.2 % (0.0-2.0); EOS # 0.2 K/uL (0.0-0.7); EOS % 2.8 % (0.0-4.0); HEMOGLOBIN 9.4 g/dL (11.0-16.0); LYMPH % 26.3 % (20.0-40.0); MEAN CELL VOLUME 89.5 fL (81.0-99.0); MEAN CORPUSCULAR HEMOGLOBIN 30.5 pg (27.0-31.0); MEAN CORPUSCULAR HGB CONC 34.1 g/dL (33.0-37.0); MEAN PLATELET VOLUME 9.5 fL (7.2-11.7); MONO # 0.7 K/uL (0.0-0.8); MONO % 8.4 % (0.0-10.0); NEUT # 4.7 K/uL (1.8-7.0); NEUT % 61.3 % (50.0-75.0); NRBC % 0.1 % (0.0-2.0); RBC 3.07 Mil/uL (3.80-5.20); RED CELL DISTRIBUTION WIDTH 14.7 % (11.5-14.5); WHITE BLOOD COUNT 7.7 K/uL (4.8-10.8)
[2018-08-01 08:16] VITALS: BP 110/65; PULSE 71; TEMP 98.3; O2SAT 97
[2018-08-01] MEDS: (Novolog) Insulin Aspart, Recombinant 100 u/ml 10 ml vial SC SCH (08:37)
[2018-08-01] MEDS: Sacubitril/Valsartan 24-26mg Tab PO SCH (09:40)
[2018-08-01] MEDS: Pantoprazole 40 mg EC Tab PO SCH (09:40)
[2018-08-01] MEDS: cefTRIAXone IV 1 gm in Dextros 50 ML IVPB SCH (09:41)
[2018-08-01] MEDS: Vitamin B Complex/Vitamin C Tab PO SCH (09:41)
--- NOTE | 2018-08-04 14:13 | DS ---
REASON FOR ADMISSION: This is a 67-year-old female with a history of multiple medical problems, who was admitted for symptoms of generalized weakness and nausea and back pain. COURSE OF HOSPITALIZATION: The patient was admitted to medical floor and she was found to have urinary tract infection, and she was started on Rocephin. The patient also was found to have a hemoglobin of 9.5 that remained stable during this admission. The patient's symptoms were improving after she was getting antibiotics and she was discharged home after completing 5 days of IV antibiotics. FINAL DIAGNOSES: Symptomatic urinary tract infection; hypertension; type 2 diabetes mellitus; congestive heart failure, both systolic and diastolic, status post implantable cardioverter-defibrillator placement. Son Sadler MD
== END 2018-08-01 14:48 | disposition home or self-care (01) | DRG 690 ==
LOC: C.ER 18:18 → C.9E 21:08 → C.6T 07-29 15:33
PROVIDERS: ADMIT Internal Medicine; ATTEND Internal Medicine
DX: N39.0 Urinary tract infection, site not specified (principal); I50.22 Chronic systolic (congestive) heart failure; I25.10 Atherosclerotic heart disease of native coronary artery without angina pectoris; I25.5 Ischemic cardiomyopathy; D64.9 Anemia, unspecified; E11.9 Type 2 diabetes mellitus without complications; E78.00 Pure hypercholesterolemia, unspecified; I11.0 Hypertensive heart disease with heart failure; J45.909 Unspecified asthma, uncomplicated; M17.0 Bilateral primary osteoarthritis of knee; Z87.891 Personal history of nicotine dependence; Z95.1 Presence of aortocoronary bypass graft; Z95.5 Presence of coronary angioplasty implant and graft; Z95.810 Presence of automatic (implantable) cardiac defibrillator; F41.9 Anxiety disorder, unspecified; I95.2 Hypotension due to drugs; T46.1X5A Adverse effect of calcium-channel blockers, initial encounter; Z87.11 Personal history of peptic ulcer disease

== ENCOUNTER 2018-09-20 08:24 | Outpatient (CLI) | payer MEDICARE, MEDICAID | END 2018-09-20 08:25 | disposition home or self-care (01) | LOC: C.LAB 08:24 | DX: E11.65 Type 2 diabetes mellitus with hyperglycemia (principal); E55.9 Vitamin D deficiency, unspecified; D50.8 Other iron deficiency anemias; E78.2 Mixed hyperlipidemia ==

== ENCOUNTER 2018-12-04 15:07 | Inpatient (IN) | payer MEDICARE, MEDICAID ==
[2018-12-04 15:19] VITALS: BMI 37.4
[2018-12-04 16:08] LABS: BASO # 0.1 K/uL (0.0-0.2); BASO % 0.6 % (0.0-2.0); EOS # 0.1 K/uL (0.0-0.7); LYMPH # 2.2 K/uL (1.0-4.3); LYMPH % 22.2 % (20.0-40.0); MEAN CORPUSCULAR HEMOGLOBIN 23.7 pg (27.0-31.0); MEAN PLATELET VOLUME 9.6 fL (7.2-11.7); MONO # 0.7 K/uL (0.0-0.8); MONO % 7.3 % (0.0-10.0); NEUT # 6.9 K/uL (1.8-7.0); NEUT % 68.9 % (50.0-75.0); RBC 2.49 Mil/uL (3.80-5.20); RED CELL DISTRIBUTION WIDTH 17.9 % (11.5-14.5); WHITE BLOOD COUNT 9.9 K/uL (4.8-10.8)
--- NOTE | 2018-12-04 16:12 | C.PDOC ---
History Of Present Illness 68 year old female, with h/o CAD, s/p CABG 2011; moderate LV dysfunction, EF 35 % in 06/2017; s/p AICD; recurrent episodes of anemia, requiring transfusion, presents to the ED with dyspnea on exertion, generalized weakness, and malaise which began 3 days ago. Patient states " I think I am anemia again." Patient has history of anemia, and questionable GI bleed with last transfusion on 06/2018. Patient denies abdominal pain, abnormal bowel movements, nausea, vomiting. She reports history of anemia, but denies asthma exacerbation. GALVEZ, GEN WEAKNESS AND MALAISE X 3 DAYS "I THINK I AM ANEMIA AGAIN". HO ANEMIA ?GI BLEED LAST TRANSFUSION 06/2018. NO ABD PAIN, ABN BM, NV. HO ASTHMA BUT DENIES ASTHMA EXAC h/o CAD, s/p CABG 2011; moderate LV dysfunction, EF 35 % in 06/2017; s/p AICD; recurrent episodes of anemia, requiring transfusion EXAM MILD DIST HEENT +PALLOR LUNGS CTA B/L NO W/R/R CV RRR ABD NEG REMAINDER NEG Time Seen by Provider: 12/04/18 15:29 Chief Complaint (Nursing): Shortness Of Breath History Per: Patient History/Exam Limitations: no limitations Current Symptoms Are (Timing): Still Present Past Medical History Reviewed: Historical Data, Nursing Documentation, Vital Signs Vital Signs: Last Vital Signs Temp 98.4 F 12/04/18 15:20 Pulse 84 12/04/18 16:04 Resp 20 12/04/18 16:04 BP 109/31 L 12/04/18 16:04 Pulse Ox 99 12/04/18 16:04 - Medical History PMH: Anemia, Anxiety, Arthritis (KNEES; LEGS), Asthma, Cardia Arrhythmia, CHF, Depression, Gastritis, HTN, Hypercholesterolemia Denies: Colonic Polyps, Fractures, Chronic Kidney Disease, Seizures, Sleep Apnea, TIA Surgical History: Cholecystectomy, Coronary Stent (3), Endoscopy - [facility] Procedures (06/18/17) (06/18/17) DESTRUCTION OF DUODENUM, ENDO (12/13/17) EXCISION OF ASCENDING COLON, ENDO (06/18/17) EXCISION OF SIGMOID COLON, ENDO (06/18/17) EXCISION OF TRANSVERSE COLON, ENDO (06/18/17) TRANSFUSE NONAUT RED BLOOD CELLS IN PERIPH VEIN, PERC (12/13/17) Family History: States: Unknown Family Hx - Social History Hx Alcohol Use: No Hx Substance Use: No - Immunization History Hx Tetanus Toxoid Vaccination: No Hx Influenza Vaccination: Yes Hx Pneumococcal Vaccination: No Review Of Systems Constitutional: Positive for: Weakness, Malaise Respiratory: Positive for: SOB with Excertion Gastrointestinal: Negative for: Nausea, Vomiting, Abdominal Pain, Diarrhea, Constipation Physical Exam - Physical Exam Appears: Non-toxic, Other (in mild distress ) Skin: Warm, Dry, Pale Head: Atraumatic, Normacephalic Eye(s): bilateral: Normal Inspection Ear(s): Bilateral: Normal Nose: Normal, No Discharge Oral Mucosa: Moist Throat: Normal, No Erythema, No Exudate Neck: Normal ROM, Supple Chest: Symmetrical, No Deformity, No Tenderness Cardiovascular: Rhythm Regular, No Murmur Respiratory: Normal Breath Sounds, No Rales, No Rhonchi, No Wheezing Gastrointestinal/Abdominal: Soft, No Tenderness, No Guarding, No Rebound Extremity: Normal ROM, Capillary Refill (less than 2 seconds ) Neurological/Psych: Normal Speech, Normal Cognition ED Course And Treatment - Laboratory Results Result Diagrams: 12/04/18 15:58 12/04/18 15:58 ECG: Interpreted By Me ECG Rhythm: Sinus Rhythm Rate From EC O2 Sat by Pulse Oximetry: 99 (on RA) Pulse Ox Interpretation: Normal Progress - Re-Evaluation Re-evaluation Note: 12/04/18 16:08 d/w dr logan schafer in ER. EVAL IN OFFICE 2 WKS AGO, HGB 7. PT ADVISED FOR ADMISSION BUT REFUSED @ THAT TIME. NO IMPROVE W IRON SUPPLEMENTS 12/04/18 16:53 D/W GI FELLOW: PT HO DUODENAL ULCER - Data Reviewed Data Reviewed: Lab, Diagnostic imaging, EKG, Old records Disposition Counseled Patient/Family Regarding: Studies Performed, Diagnosis - Disposition Disposition: HOSPITALIZED Disposition Time: 16:26 Condition: SERIOUS - POA Present On Arrival: None - Clinical Impression Clinical Impression: Symptomatic anemia - Scribe Statement The provider has reviewed the documentation as recorded by the Scribe (Trisha Bernal) Provider Attestation: All medical record entries made by the Scribe were at my direction and personally dictated by me. I have reviewed the chart and agree that the record accurately reflects my personal performance of the history, physical exam, medical decision making, and the department course for this patient. I have also personally directed, reviewed, and agree with the discharge instructions and disposition.
[2018-12-04 16:13] LABS: INR 1.3; PROTHROMBIN TIME 14.1 SECONDS (9.7-12.2)
[2018-12-04 16:16] LABS: HEMOGLOBIN 5.9 g/dL (11.0-16.0)
[2018-12-04 16:17] LABS: MEAN CELL VOLUME 76.3 fL (81.0-99.0)
[2018-12-04 16:20] LABS: ALB/GLOB RATIO 1.1 (1.0-2.1); ALBUMIN 4.1 g/dL (3.5-5.0); ALT/SGPT 10 U/L (9-52); AST/SGOT 24 U/L (14-36); BLOOD UREA NITROGEN 22 mg/dL (7-17); CALCIUM 9.7 mg/dl (8.6-10.4); GFR NON-AFRICAN AMERICAN > 60
[2018-12-04 16:32] LABS: B-TYPE NATRIURETIC PEPTIDE 685 pg/mL (0-900)
--- NOTE | 2018-12-04 16:57 | RAD ---
HISTORY: SOB HYPOXIA COMPARISON: Chest x-ray performed 07/28/18 TECHNIQUE: Chest, one view. FINDINGS: Examination limited by habitus. Numerous external wires and leads obscure evaluation of the underlying parenchyma. LUNGS: Mild venous congestion. No focal consolidation. Please note that chest x-ray has limited sensitivity for the detection of pulmonary masses. PLEURA: No significant pleural effusion identified. No definite pneumothorax . CARDIOVASCULAR: Median sternotomy wires. Cardiomegaly. Atherosclerotic calcifications. OSSEOUS STRUCTURES: Degenerative changes. VISUALIZED UPPER ABDOMEN: Unremarkable. OTHER FINDINGS: None. IMPRESSION: Cardiomegaly. Left-sided AICD. Mild venous congestion.
--- NOTE | 2018-12-04 17:08 | CP.PCM.HP ---
History of Present Illness - History of Present Illness History of Present Illness: PGY-1 Tracy Sotomayor D.O. H&P for Dr. Hansen's service: Patient is a 68 yo female with PMH: PSH: Meds: All: FH: SH: PMD: Past Patient History - Infectious Disease Hx of Infectious Diseases: None - Past Medical History & Family History Past Medical History?: Yes - Past Social History Smoking Status: Former Smoker - CARDIAC Hx Cardia Arrhythmia: Yes Hx Congestive Heart Failure: Yes Hx Hypercholesterolemia: Yes Hx Hypertension: Yes - PULMONARY Hx Asthma: Yes Hx Sleep Apnea: No - NEUROLOGICAL Hx Seizures: No Hx Transient Ischemic Attacks (TIA): No - HEENT Hx HEENT Problems: Yes Hx Cataracts: Yes (RIGHT EYE) - RENAL Hx Chronic Kidney Disease: No - ENDOCRINE/METABOLIC Hx Endocrine Disorders: Yes Hx Diabetes Mellitus Type 1: Yes - HEMATOLOGICAL/ONCOLOGICAL Hx Anemia: Yes - INTEGUMENTARY Hx Dermatological Problems: No - MUSCULOSKELETAL/RHEUMATOLOGICAL Hx Arthritis: Yes (KNEES; LEGS) Hx Fractures: No - GASTROINTESTINAL Hx Gastritis: Yes - GENITOURINARY/GYNECOLOGICAL Hx Genitourinary Disorders: No - PSYCHIATRIC Hx Anxiety: Yes Hx Depression: Yes Hx Substance Use: No - SURGICAL HISTORY Hx Cholecystectomy: Yes Hx Coronary Stent: Yes (3) - ANESTHESIA Hx Anesthesia: Yes Hx Anesthesia Reactions: No Hx Malignant Hyperthermia: No Meds Allergies/Adverse Reactions: Allergies Allergy/AdvReac Type Severity Reaction Status Date / Time No Known Allergies Allergy Verified 12/04/18 15:18 Results - Vital Signs Recent Vital Signs: Last Vital Signs Temp 98.4 F 12/04/18 15:20 Pulse 84 12/04/18 16:04 Resp 20 12/04/18 16:04 BP 109/31 L 12/04/18 16:04 Pulse Ox 99 12/04/18 17:06 - Labs Result Diagrams: 12/04/18 15:58 12/04/18 15:58 Labs: Laboratory Results - last 24 hr 12/04/18 12/04/18 12/04/18 15:58 15:58 15:58 WBC 9.9 RBC 2.49 L Hgb 5.9 L* D Hct 19.0 L MCV 76.3 L D MCH 23.7 L MCHC 31.0 L RDW 17.9 H Plt Count 189 MPV 9.6 Neut % (Auto) 68.9 Lymph % (Auto) 22.2 [place] % (Auto) 7.3 Eos % (Auto) 1.0 Baso % (Auto) 0.6 Neut # (Auto) 6.9 Lymph # (Auto) 2.2 [place] # (Auto) 0.7 Eos # (Auto) 0.1 Baso # (Auto) 0.1 PT 14.1 H INR 1.3 APTT 27 Sodium 137 Potassium 4.7 Chloride 106 Carbon Dioxide 23 Anion Gap 13 BUN 22 H Creatinine 0.7 Est GFR ( Amer) > 60 Est GFR (Non-Af Amer) > 60 Random Glucose 139 H Calcium 9.7 Total Bilirubin 0.4 AST 24 ALT 10 Alkaline Phosphatase 78 Troponin I < 0.0120 NT-Pro-B Natriuret Pep 685 Total Protein 7.7 Albumin 4.1 Globulin 3.6 Albumin/Globulin Ratio 1.1 Blood Type Antibody Screen 12/04/18 15:58 WBC RBC Hgb Hct MCV MCH MCHC RDW Plt Count MPV Neut % (Auto) Lymph % (Auto) [place] % (Auto) Eos % (Auto) Baso % (Auto) Neut # (Auto) Lymph # (Auto) [place] # (Auto) Eos # (Auto) Baso # (Auto) PT INR APTT Sodium Potassium Chloride Carbon Dioxide Anion Gap BUN Creatinine Est GFR ( Amer) Est GFR (Non-Af Amer) Random Glucose Calcium Total Bilirubin AST ALT Alkaline Phosphatase Troponin I NT-Pro-B Natriuret Pep Total Protein Albumin Globulin Albumin/Globulin Ratio Blood Type O POSITIVE Antibody Screen Negative
[2018-12-04] MEDS: Sodium Chloride 0.9% 1,000 ML IV SCH (17:11)
[2018-12-04 17:14] LABS: IRON 15 ug/dL (37-170); IRON 16 ug/dL (37-170)
[2018-12-04 17:23] LABS: % IRON SATURATION 4 (20-55); TOTAL IRON BINDING CAPACITY 415 ug/dL (250-450); TOTAL IRON BINDING CAPACITY 418 ug/dL (250-450)
--- NOTE | 2018-12-04 18:19 | CP.PCM.CON ---
History of Present Illness - History of Present Illness History of Present Illness: 68 year old female with a history of HTN, DM, CAD s/p CABG, pacemaker, admitted with symptomatic anemia. The patient is known to me from last year and diagnosed with iron deficiency anemia secondary to duodenal blood loss noted by capsule endoscopy. She did require PRBC transfusion and IV iron supplementation. She notes to doing well since then but began again to feel weak over the last few weeks. She does have intermittent black stools. She was hoping to improve with PO iron supplementation but began to have progressive dys pnea with exertion and came to the hospital. Her hgb was noted to be 5.7 and she is awaiting PRBC transfusion. Past medical history: HTN, DM, CAD s/p CABG, pacemaker, iron deficiency anemia. Past surgical history: CABG, pacemaker, cholecystectomy Family history: Sister had breast cancer Social history: Denies tobacco, alcohol, and illicit drug use. Allergies: NKA Review of systems: All remaining review of systems including HEENT, cardiovascular, respiratory, gastrointestinal, genitourinary, musculoskeletal, dermatologic, neurologic, and psychiatric are negative unless mentioned in the HPI. Past Patient History - Infectious Disease Hx of Infectious Diseases: None - Past Medical History & Family History Past Medical History?: Yes - Past Social History Smoking Status: Former Smoker - CARDIAC Hx Cardia Arrhythmia: Yes Hx Congestive Heart Failure: Yes Hx Hypercholesterolemia: Yes Hx Hypertension: Yes - PULMONARY Hx Asthma: Yes Hx Sleep Apnea: No - NEUROLOGICAL Hx Seizures: No Hx Transient Ischemic Attacks (TIA): No - HEENT Hx HEENT Problems: Yes Hx Cataracts: Yes (RIGHT EYE) - RENAL Hx Chronic Kidney Disease: No - ENDOCRINE/METABOLIC Hx Endocrine Disorders: Yes Hx Diabetes Mellitus Type 1: Yes - HEMATOLOGICAL/ONCOLOGICAL Hx Anemia: Yes - INTEGUMENTARY Hx Dermatological Problems: No - MUSCULOSKELETAL/RHEUMATOLOGICAL Hx Arthritis: Yes (KNEES; LEGS) Hx Fractures: No - GASTROINTESTINAL Hx Gastritis: Yes - GENITOURINARY/GYNECOLOGICAL Hx Genitourinary Disorders: No - PSYCHIATRIC Hx Anxiety: Yes Hx Depression: Yes Hx Substance Use: No - SURGICAL HISTORY Hx Cholecystectomy: Yes Hx Coronary Stent: Yes (3) - ANESTHESIA Hx Anesthesia: Yes Hx Anesthesia Reactions: No Hx Malignant Hyperthermia: No Meds Allergies/Adverse Reactions: Allergies Allergy/AdvReac Type Severity Reaction Status Date / Time No Known Allergies Allergy Verified 12/04/18 15:18 - Medications Medications: Current Medications Sodium Chloride (Sodium Chloride 0.9%) 1,000 mls @ 100 mls/hr IV .Q10H [facility] Last Admin: 12/04/18 17:11 Dose: 100 mls/hr Pantoprazole Sodium (Protonix Inj) 40 mg IVP Q12H [facility] Pneumococcal Polyvalent Vaccine (Pneumovax 23 Vaccine) 0.5 ml IM .ONCE ONE Stop: 12/06/18 10:01 Physical Exam - Head Exam Head Exam: ATRAUMATIC - Eye Exam Eye Exam: Normal appearance - ENT Exam ENT Exam: Mucous Membranes Dry - Neck Exam Neck exam: Positive for: Normal Inspection - Respiratory Exam Respiratory Exam: NORMAL BREATHING PATTERN - Cardiovascular Exam Cardiovascular Exam: +S1, +S2 - GI/Abdominal Exam GI & Abdominal Exam: Normal Bowel Sounds - Extremities Exam Extremities exam: Positive for: normal inspection - Neurological Exam Neurological exam: Oriented x3 - Psychiatric Exam Psychiatric exam: Normal Affect, Normal Mood - Skin Skin Exam: Warm Results - Vital Signs Recent Vital Signs: Last Vital Signs Temp 98.2 F 12/04/18 18:10 Pulse 82 12/04/18 18:10 Resp 20 12/04/18 18:10 BP 115/57 L 12/04/18 18:10 Pulse Ox 96 12/04/18 18:10 - Labs Result Diagrams: 12/04/18 15:58 12/04/18 15:58 Labs: Laboratory Results - last 24 hr 12/04/18 12/04/18 12/04/18 15:58 15:58 15:58 WBC 9.9 RBC 2.49 L Hgb 5.9 L* D Hct 19.0 L MCV 76.3 L D MCH 23.7 L MCHC 31.0 L RDW 17.9 H Plt Count 189 MPV 9.6 Neut % (Auto) 68.9 Lymph % (Auto) 22.2 [place] % (Auto) 7.3 Eos % (Auto) 1.0 Baso % (Auto) 0.6 Neut # (Auto) 6.9 Lymph # (Auto) 2.2 [place] # (Auto) 0.7 Eos # (Auto) 0.1 Baso # (Auto) 0.1 PT 14.1 H INR 1.3 APTT 27 Sodium 137 Potassium 4.7 Chloride 106 Carbon Dioxide 23 Anion Gap 13 BUN 22 H Creatinine 0.7 Est GFR ( Amer) > 60 Est GFR (Non-Af Amer) > 60 Random Glucose 139 H Calcium 9.7 Iron TIBC % Saturation Total Bilirubin 0.4 AST 24 ALT 10 Alkaline Phosphatase 78 Troponin I < 0.0120 NT-Pro-B Natriuret Pep 685 Total Protein 7.7 Albumin 4.1 Globulin 3.6 Albumin/Globulin Ratio 1.1 Blood Type Antibody Screen 12/04/18 12/04/18 12/04/18 15:58 16:53 16:53 WBC RBC Hgb Hct MCV MCH MCHC RDW Plt Count MPV Neut % (Auto) Lymph % (Auto) [place] % (Auto) Eos % (Auto) Baso % (Auto) Neut # (Auto) Lymph # (Auto) [place] # (Auto) Eos # (Auto) Baso # (Auto) PT INR APTT Sodium Potassium Chloride Carbon Dioxide Anion Gap BUN Creatinine Est GFR ( Amer) Est GFR (Non-Af Amer) Random Glucose Calcium Iron 15 L 16 L TIBC 415 418 % Saturation 4 L 4 L Total Bilirubin AST ALT Alkaline Phosphatase Troponin I NT-Pro-B Natriuret Pep Total Protein Albumin Globulin Albumin/Globulin Ratio Blood Type O POSITIVE Antibody Screen Negative Assessment & Plan (1) Anemia Assessment and Plan: likely iron deficiency from chronic GI blood loss 2U PRBC today will start IV iron in AM GI evaluation - prior duodenal bleeding by capsule endoscopy Thank you for this interesting consult. Status: Acute
[2018-12-04] MEDS: (Novolin R) Insulin Human Regular 100 units/ml vial SC SCH (21:27)
[2018-12-05] MEDS: Sodium Chloride 0.9% 1,000 ML IV SCH ×2 (03:15→23:15)
[2018-12-05] MEDS: Dextrose 5%/0.9% NS 1,000 ML IV SCH ×4 (04:02→18:51)
[2018-12-05] MEDS: (Novolin R) Insulin Human Regular 100 units/ml vial SC SCH ×4 (08:02→21:47)
--- NOTE | 2018-12-05 08:22 | CP.PCM.CON ---
<Yony Sharif - Last Filed: 12/05/18 08:26> History of Present Illness - History of Present Illness History of Present Illness: GI Fellow PGY4, consult note. Patient is a very pleasant 68F with extensive medical comorbidities and recurrent iron deficiency anemia presenting with weakness, lightheadedness and fatigue. Patient states, "I think I am anemic again". She has been having the above symptoms for 1 week and have been steadily progressing. Immediate CBC showed Hb to be less than 6. Three months ago her HB was ~10. She has had multiple EGD, enteroscopies, colonoscopies in the last few years. She has been found to have a duodenal ulcer last year which was cauterized. She admits to taking aspirin only a couple times per week. She states she is taking PPI daily. She denies vomiting, blood in stool. She does admit her stool was yesterday AM, and was dark brown and a little black. PMHx - CAD, CHF, HTN, T2DM PSHx: CABGx3, Defibrillator, Cholecystectomy, tubal ligation FHx: Father - CAD/MT; Mother - unknown cancer; Brother - CAD; Sister - Breast cancer Social: Former smoker (>20 years ago), denies EtOH or illicit drug use Endo: Colon -09/2017 - Appendiceal orifice polyp with focal adenomatous changes EGD/Colon - 06/2017 - H pylori positive gastritis, 3 tubular adenomas Enteroscopy 12/20 - duodenal ulcer s/p cautery 2018 - video capsule endoscopy 12pt ROS completed and negative except for above. Past Patient History - Infectious Disease Hx of Infectious Diseases: None - Past Medical History & Family History Past Medical History?: Yes - Past Social History Smoking Status: Former Smoker - CARDIAC Hx Cardia Arrhythmia: Yes Hx Congestive Heart Failure: Yes Hx Hypercholesterolemia: Yes Hx Hypertension: Yes - PULMONARY Hx Asthma: Yes Hx Sleep Apnea: No - NEUROLOGICAL Hx Seizures: No Hx Transient Ischemic Attacks (TIA): No - HEENT Hx HEENT Problems: Yes Hx Cataracts: Yes (RIGHT EYE) - RENAL Hx Chronic Kidney Disease: No - ENDOCRINE/METABOLIC Hx Endocrine Disorders: Yes Hx Diabetes Mellitus Type 1: Yes - HEMATOLOGICAL/ONCOLOGICAL Hx Anemia: Yes - INTEGUMENTARY Hx Dermatological Problems: No - MUSCULOSKELETAL/RHEUMATOLOGICAL Hx Arthritis: Yes (KNEES; LEGS) Hx Fractures: No - GASTROINTESTINAL Hx Gastritis: Yes - GENITOURINARY/GYNECOLOGICAL Hx Genitourinary Disorders: No - PSYCHIATRIC Hx Anxiety: Yes Hx Depression: Yes Hx Substance Use: No - SURGICAL HISTORY Hx Cholecystectomy: Yes Hx Coronary Stent: Yes (3) - ANESTHESIA Hx Anesthesia: Yes Hx Anesthesia Reactions: No Hx Malignant Hyperthermia: No Meds Allergies/Adverse Reactions: Allergies Allergy/AdvReac Type Severity Reaction Status Date / Time No Known Allergies Allergy Verified 12/04/18 15:18 - Medications Medications: Current Medications Alprazolam (Xanax) 0.25 mg PO TID PRN PRN Reason: Anxiety Stop: 12/11/18 19:11 Last Admin: 12/04/18 21:27 Dose: 0.25 mg Amlodipine Besylate (Norvasc) 2.5 mg PO DAILY [facility] Escitalopram Oxalate (Lexapro) 10 mg PO DAILY [facility] Ferric Sodium Gluconate Complex (Ferrlecit) 125 mg IVPB DAILY [facility] Stop: 12/13/18 10:01 Ferrous Sulfate (Feosol) 325 mg PO BID [facility] Home Med (Cyclosporine [Restasis]) 0.05 ml OP DAILY [facility] Sodium Chloride (Sodium Chloride 0.9%) 1,000 mls @ 100 mls/hr IV .Q10H [facility] Last Admin: 12/05/18 03:15 Dose: Not Given Dextrose/Sodium Chloride (Dextrose 5%/0.9% Ns 1000 Ml) 1,000 mls @ 100 mls/hr IV .Q10H [facility] Last Admin: 12/05/18 04:02 Dose: 100 mls/hr Insulin Human Regular (Novolin R) 0 unit SC [facility]; Protocol Last Admin: 12/05/18 08:02 Dose: Not Given Montelukast Sodium (Singulair) 10 mg PO HS [facility] Last Admin: 12/04/18 21:27 Dose: 10 mg Nebivolol (Bystolic) 5 mg PO DAILY [facility] Pantoprazole Sodium (Protonix Inj) 40 mg IVP Q12H [facility] Last Admin: 12/05/18 04:31 Dose: 40 mg Pneumococcal Polyvalent Vaccine (Pneumovax 23 Vaccine) 0.5 ml IM .ONCE ONE Stop: 12/06/18 10:01 Vitamin B Complex/Vit C/Folic Acid (Nephro-Ross) 1 tab PO DAILY [facility] Vitamin B Complex/Vitamin C (Berocca) 1 tab PO DAILY [facility] Physical Exam - Constitutional Appears: Non-toxic, No Acute Distress - Eye Exam Eye Exam: EOMI, Normal appearance - ENT Exam ENT Exam: Mucous Membranes Moist, Normal Exam - Respiratory Exam Respiratory Exam: Clear to Auscultation Bilateral, NORMAL BREATHING PATTERN - Cardiovascular Exam Cardiovascular Exam: REGULAR RHYTHM, +S1, +S2 - GI/Abdominal Exam GI & Abdominal Exam: Normal Bowel Sounds, Soft. absent: Organomegaly, Tenderness - Rectal Exam Rectal Exam: Hemorrhoids. absent: Black Stool, Bloody Stool Additional comments: hard stool in vault - Neurological Exam Neurological exam: Alert, CN II-XII Intact, Oriented x3 - Psychiatric Exam Psychiatric exam: Anxious, Normal Affect, Normal Mood - Skin Skin Exam: Pallor, Warm Results - Vital Signs Recent Vital Signs: Last Vital Signs Temp 98.1 F 12/05/18 07:25 Pulse 69 12/05/18 07:25 Resp 20 12/05/18 07:25 BP 122/61 12/05/18 07:25 Pulse Ox 97 12/05/18 07:25 - Labs Result Diagrams: 12/04/18 15:58 12/04/18 15:58 Labs: Laboratory Results - last 24 hr 12/04/18 12/04/18 12/04/18 15:58 15:58 15:58 WBC 9.9 RBC 2.49 L Hgb 5.9 L* D Hct 19.0 L MCV 76.3 L D MCH 23.7 L MCHC 31.0 L RDW 17.9 H Plt Count 189 MPV 9.6 Neut % (Auto) 68.9 Lymph % (Auto) 22.2 Hubbard % (Auto) 7.3 Eos % (Auto) 1.0 Baso % (Auto) 0.6 Neut # (Auto) 6.9 Lymph # (Auto) 2.2 Hubbard # (Auto) 0.7 Eos # (Auto) 0.1 Baso # (Auto) 0.1 PT 14.1 H INR 1.3 APTT 27 Sodium 137 Potassium 4.7 Chloride 106 Carbon Dioxide 23 Anion Gap 13 BUN 22 H Creatinine 0.7 Est GFR ( Amer) > 60 Est GFR (Non-Af Amer) > 60 POC Glucose (mg/dL) Random Glucose 139 H Calcium 9.7 Iron TIBC % Saturation Total Bilirubin 0.4 AST 24 ALT 10 Alkaline Phosphatase 78 Troponin I < 0.0120 NT-Pro-B Natriuret Pep 685 Total Protein 7.7 Albumin 4.1 Globulin 3.6 Albumin/Globulin Ratio 1.1 Blood Type Antibody Screen 12/04/18 12/04/18 12/04/18 15:58 16:53 16:53 WBC RBC Hgb Hct MCV MCH MCHC RDW Plt Count MPV Neut % (Auto) Lymph % (Auto) Hubbard % (Auto) Eos % (Auto) Baso % (Auto) Neut # (Auto) Lymph # (Auto) Hubbard # (Auto) Eos # (Auto) Baso # (Auto) PT INR APTT Sodium Potassium Chloride Carbon Dioxide Anion Gap BUN Creatinine Est GFR ( Amer) Est GFR (Non-Af Amer) POC Glucose (mg/dL) Random Glucose Calcium Iron 15 L 16 L TIBC 415 418 % Saturation 4 L 4 L Total Bilirubin AST ALT Alkaline Phosphatase Troponin I NT-Pro-B Natriuret Pep Total Protein Albumin Globulin Albumin/Globulin Ratio Blood Type O POSITIVE Antibody Screen Negative 12/04/18 12/05/18 21:17 07:20 WBC RBC Hgb Hct MCV MCH MCHC RDW Plt Count MPV Neut % (Auto) Lymph % (Auto) Hubbard % (Auto) Eos % (Auto) Baso % (Auto) Neut # (Auto) Lymph # (Auto) Hubbard # (Auto) Eos # (Auto) Baso # (Auto) PT INR APTT Sodium Potassium Chloride Carbon Dioxide Anion Gap BUN Creatinine Est GFR ( Amer) Est GFR (Non-Af Amer) POC Glucose (mg/dL) 120 H 155 H Random Glucose Calcium Iron TIBC % Saturation Total Bilirubin AST ALT Alkaline Phosphatase Troponin I NT-Pro-B Natriuret Pep Total Protein Albumin Globulin Albumin/Globulin Ratio Blood Type Antibody Screen Assessment & Plan - Assessment and Plan (Free Text) Assessment: #Acute on Chronic iron deficiency anemia, possibly due to GI blood loss #Duodenal ulcer #Tubular adenomas #Moderate pulmonary HTN #CHF - EF 35% on 2017 echo. #CAD/DM/HTN Plan: -Patient is symptomatic on admission requiring 2u pRBCs with significant improvement. No melena. -Follow Hb and transfuse for Hb less than 8 in setting of severe cardiac di sease. Monitor for fluid overload. -Plan for EGD today -NPO -Continue PPI IV BID -Avoid NSAIDs, blood thinners -Agree with IV iron replacement -Patient has history of poor bowel prep and multiple TAs. She is overdue for colonoscopy. This may be considered for . Case discussed with Dr. Davis, see attestation. - Date & Time Date: 12/05/18 Time: 08:30 <RyanMoo Y - Last Filed: 12/05/18 09:57> Meds - Medications Medications: Current Medications Alprazolam (Xanax) 0.25 mg PO TID PRN PRN Reason: Anxiety Stop: 12/11/18 19:11 Last Admin: 12/04/18 21:27 Dose: 0.25 mg Amlodipine Besylate (Norvasc) 2.5 mg PO DAILY [facility] Escitalopram Oxalate (Lexapro) 10 mg PO DAILY [facility] Ferric Sodium Gluconate Complex (Ferrlecit) 125 mg IVPB DAILY [facility] Stop: 12/13/18 10:01 Ferrous Sulfate (Feosol) 325 mg PO BID [facility] Home Med (Cyclosporine [Restasis]) 0.05 ml OP DAILY [facility] Sodium Chloride (Sodium Chloride 0.9%) 1,000 mls @ 100 mls/hr IV .Q10H [facility] Last Admin: 12/05/18 03:15 Dose: Not Given Dextrose/Sodium Chloride (Dextrose 5%/0.9% Ns 1000 Ml) 1,000 mls @ 100 mls/hr IV .Q10H [facility] Last Admin: 12/05/18 04:02 Dose: 100 mls/hr Insulin Human Regular (Novolin R) 0 unit SC [facility]; Protocol Last Admin: 12/05/18 08:02 Dose: Not Given Montelukast Sodium (Singulair) 10 mg PO HS [facility] Last Admin: 12/04/18 21:27 Dose: 10 mg Nebivolol (Bystolic) 5 mg PO DAILY [facility] Pantoprazole Sodium (Protonix Inj) 40 mg IVP Q12H [facility] Last Admin: 12/05/18 04:31 Dose: 40 mg Pneumococcal Polyvalent Vaccine (Pneumovax 23 Vaccine) 0.5 ml IM .ONCE ONE Stop: 12/06/18 10:01 Vitamin B Complex/Vit C/Folic Acid (Nephro-Ross) 1 tab PO DAILY [facility] Vitamin B Complex/Vitamin C (Berocca) 1 tab PO DAILY [facility] Results - Vital Signs Recent Vital Signs: Last Vital Signs Temp 98.1 F 12/05/18 07:25 Pulse 69 12/05/18 07:25 Resp 20 12/05/18 07:25 BP 122/61 12/05/18 07:25 Pulse Ox 97 12/05/18 07:25 - Labs Result Diagrams: 12/05/18 09:04 12/04/18 15:58 Labs: Laboratory Results - last 24 hr 12/04/18 12/04/18 12/04/18 15:58 15:58 15:58 WBC 9.9 RBC 2.49 L Hgb 5.9 L* D Hct 19.0 L MCV 76.3 L D MCH 23.7 L MCHC 31.0 L RDW 17.9 H Plt Count 189 MPV 9.6 Neut % (Auto) 68.9 Lymph % (Auto) 22.2 Hubbard % (Auto) 7.3 Eos % (Auto) 1.0 Baso % (Auto) 0.6 Neut # (Auto) 6.9 Lymph # (Auto) 2.2 Hubbard # (Auto) 0.7 Eos # (Auto) 0.1 Baso # (Auto) 0.1 Retic Count PT 14.1 H INR 1.3 APTT 27 Sodium 137 Potassium 4.7 Chloride 106 Carbon Dioxide 23 Anion Gap 13 BUN 22 H Creatinine 0.7 Est GFR ( Amer) > 60 Est GFR (Non-Af Amer) > 60 POC Glucose (mg/dL) Random Glucose 139 H Calcium 9.7 Iron TIBC % Saturation Total Bilirubin 0.4 AST 24 ALT 10 Alkaline Phosphatase 78 Troponin I < 0.0120 NT-Pro-B Natriuret Pep 685 Total Protein 7.7 Albumin 4.1 Globulin 3.6 Albumin/Globulin Ratio 1.1 Blood Type Antibody Screen 12/04/18 12/04/18 12/04/18 15:58 16:53 16:53 WBC RBC Hgb Hct MCV MCH MCHC RDW Plt Count MPV Neut % (Auto) Lymph % (Auto) Hubbard % (Auto) Eos % (Auto) Baso % (Auto) Neut # (Auto) Lymph # (Auto) Hubbard # (Auto) Eos # (Auto) Baso # (Auto) Retic Count PT INR APTT Sodium Potassium Chloride Carbon Dioxide Anion Gap BUN Creatinine Est GFR ( Amer) Est GFR (Non-Af Amer) POC Glucose (mg/dL) Random Glucose Calcium Iron 15 L 16 L TIBC 415 418 % Saturation 4 L 4 L Total Bilirubin AST ALT Alkaline Phosphatase Troponin I NT-Pro-B Natriuret Pep Total Protein Albumin Globulin Albumin/Globulin Ratio Blood Type O POSITIVE Antibody Screen Negative 12/04/18 12/05/18 12/05/18 21:17 07:20 09:04 WBC 7.7 RBC 2.92 L Hgb 7.5 L Hct 23.6 L MCV 80.9 L D MCH 25.7 L MCHC 31.8 L RDW 18.3 H Plt Count 160 MPV 9.4 Neut % (Auto) 67.6 Lymph % (Auto) 22.7 Hubbard % (Auto) 7.0 Eos % (Auto) 1.6 Baso % (Auto) 1.1 Neut # (Auto) 5.2 Lymph # (Auto) 1.7 Hubbard # (Auto) 0.5 Eos # (Auto) 0.1 Baso # (Auto) 0.1 Retic Count 2.9 H PT INR APTT Sodium Potassium Chloride Carbon Dioxide Anion Gap BUN Creatinine Est GFR ( Amer) Est GFR (Non-Af Amer) POC Glucose (mg/dL) 120 H 155 H Random Glucose Calcium Iron TIBC % Saturation Total Bilirubin AST ALT Alkaline Phosphatase Troponin I NT-Pro-B Natriuret Pep Total Protein Albumin Globulin Albumin/Globulin Ratio Blood Type Antibody Screen Attending/Attestation - Attestation I have personally seen and examined this patient.: Yes I have fully participated in the care of the patient.: Yes I have reviewed all pertinent clinical information: Yes Notes (Text): 12/05/18 09:51 I have seen and examined patient with GI fellow. Agree with above documentation with the following additions. In brief, this is a 68 year old female with history of iron deficiency anemia, CAD s/p CABG and ICD, obesity, DM, HTN who presents to the hospital with complaint of progressive dyspnea, worse on exertion over the past one week. She denies abdominal pain, nausea, vomiting, diarrhea, fever/chills, weight loss, rectal bleeding, melena, or change in bowel habits. She has had multiple endoscopic evaluations in the past including push enteroscopy, colonoscopy, capsule endoscopy which showed duodenal ulcer, suboptimal bowel preparation with history of multiple colon polyps. CAD s/p CABG and ICD DM/HTN Obesity Iron deficiency anemia - NPO - Continue to monitor H/H, s/p PRBC transfusion - Patient to receive IV iron replacement today, follow up hematology recommendations - Continue with PPI therapy - Will plan for EGD tomorrow given progressive anemia of unclear etiology to rule out upper GI bleeding source. She will ultimately benefit from repeat colonoscopy as well, timing to be determined by patient clinical course.
[2018-12-05 09:16] LABS: BASO # 0.1 K/uL (0.0-0.2); BASO % 1.1 % (0.0-2.0); EOS # 0.1 K/uL (0.0-0.7); EOS % 1.6 % (0.0-4.0); HEMOGLOBIN 7.5 g/dL (11.0-16.0); LYMPH # 1.7 K/uL (1.0-4.3); LYMPH % 22.7 % (20.0-40.0); MEAN CORPUSCULAR HEMOGLOBIN 25.7 pg (27.0-31.0); MEAN CORPUSCULAR HGB CONC 31.8 g/dL (33.0-37.0); MEAN PLATELET VOLUME 9.4 fL (7.2-11.7); MONO # 0.5 K/uL (0.0-0.8); NEUT # 5.2 K/uL (1.8-7.0); NEUT % 67.6 % (50.0-75.0); RBC 2.92 Mil/uL (3.80-5.20); RED CELL DISTRIBUTION WIDTH 18.3 % (11.5-14.5); WHITE BLOOD COUNT 7.7 K/uL (4.8-10.8)
[2018-12-05 09:20] LABS: MEAN CELL VOLUME 80.9 fL (81.0-99.0)
[2018-12-05] MEDS ORDERED: CYCLOSPORINE OP SCH (10:00)
[2018-12-05 10:04] LABS: FERRITIN 6.3 ng/mL
[2018-12-05] MEDS: Vitamin B Complex/Vitamin C Tab PO SCH (10:32)
[2018-12-05] MEDS: Multivitamin Vitamin B Complex (Nephro-Vite) Tab PO SCH (10:33)
[2018-12-05] MEDS: Ferric Sodium Gluconat Complex 62.5 mg/5 ml Vial IVPB SCH (10:33)
[2018-12-05 10:34] LABS: FOLATE > 20.0 ng/mL
[2018-12-05] MEDS ORDERED: HYDROmorphone 1 mg/ml ISec IVP STA (11:15)
[2018-12-05] MEDS ORDERED: Lactated Ringer's 500 ML IV ONE (12:55)
[2018-12-05] MEDS ORDERED: Midazolam 2 MG/2 ML VIAL ONE (12:59)
[2018-12-05] MEDS ORDERED: Simethicone 40 mg/0.6 ml Liquid (30 ml) ONE (13:13)
[2018-12-05] MEDS ORDERED: Peg-Electrolyte Oral Soln 4L (Golytely) PO ONE (13:21)
[2018-12-05] MEDS ORDERED: Etomidate 20 mg/10ml Inj IV ONE (13:26)
[2018-12-05] MEDS ORDERED: Simethicone 40 mg/0.6 ml Liquid (30 ml) PO ONE (16:00)
[2018-12-05] MEDS ORDERED: Bisacodyl 5mg EC Tab PO ONE (20:00)
--- NOTE | 2018-12-05 22:14 | CP.PCM.PN ---
Subjective - Date & Time of Evaluation Date of Evaluation: 12/05/18 Time of Evaluation: 19:00 - Subjective Subjective: s/p EGD - gastritis noted for colonoscopy tomorrow Objective - Vital Signs/Intake and Output Vital Signs (last 24 hours): Temp Pulse Resp BP Pulse Ox 97.5 F L 73 20 118/65 96 12/05/18 16:00 12/05/18 16:00 12/05/18 16:00 12/05/18 16:00 12/05/18 19:27 Intake and Output: 12/05/18 12/06/18 18:59 06:59 Intake Total 1625 Balance 1625 - Medications Medications: Current Medications Alprazolam (Xanax) 0.25 mg PO TID PRN PRN Reason: Anxiety Stop: 12/11/18 19:11 Last Admin: 12/04/18 21:27 Dose: 0.25 mg Amlodipine Besylate (Norvasc) 2.5 mg PO DAILY [facility] Last Admin: 12/05/18 10:33 Dose: 2.5 mg Bisacodyl (Dulcolax) 10 mg PO ONCE ONE Stop: 12/06/18 07:01 Escitalopram Oxalate (Lexapro) 10 mg PO DAILY [facility] Last Admin: 12/05/18 10:32 Dose: 10 mg Ferric Sodium Gluconate Complex (Ferrlecit) 125 mg IVPB DAILY [facility] Stop: 12/13/18 10:01 Last Admin: 12/05/18 10:33 Dose: 125 mg Ferrous Sulfate (Feosol) 325 mg PO BID [facility] Last Admin: 12/05/18 18:42 Dose: 325 mg Home Med (Cyclosporine [Restasis]) 0.05 ml OP DAILY [facility] Sodium Chloride (Sodium Chloride 0.9%) 1,000 mls @ 100 mls/hr IV .Q10H [facility] Last Admin: 12/05/18 03:15 Dose: Not Given Dextrose/Sodium Chloride (Dextrose 5%/0.9% Ns 1000 Ml) 1,000 mls @ 100 mls/hr IV .Q10H [facility] Last Admin: 12/05/18 18:51 Dose: 100 mls/hr Insulin Human Regular (Novolin R) 0 unit SC [facility]; Protocol Last Admin: 12/05/18 21:47 Dose: Not Given Montelukast Sodium (Singulair) 10 mg PO [facility] Last Admin: 12/05/18 21:47 Dose: 10 mg Nebivolol (Bystolic) 5 mg PO DAILY [facility] Last Admin: 12/05/18 10:37 Dose: 5 mg Pantoprazole Sodium (Protonix Ec Tab) 40 mg PO DAILY [facility] Pneumococcal Polyvalent Vaccine (Pneumovax 23 Vaccine) 0.5 ml IM .ONCE ONE Stop: 12/06/18 10:01 Vitamin B Complex/Vit C/Folic Acid (Nephro-Ross) 1 tab PO DAILY [facility] Last Admin: 12/05/18 10:33 Dose: 1 tab Vitamin B Complex/Vitamin C (Berocca) 1 tab PO DAILY [facility] Last Admin: 12/05/18 10:32 Dose: 1 tab - Labs Labs: 12/05/18 09:04 12/04/18 15:58 PT 14.1 SECONDS (9.7-12.2) H 12/04/18 15:58 INR 1.3 12/04/18 15:58 APTT 27 SECONDS (21-34) 12/04/18 15:58 - Head Exam Head Exam: ATRAUMATIC - Eye Exam Eye Exam: Normal appearance - ENT Exam ENT Exam: Mucous Membranes Dry - Respiratory Exam Respiratory Exam: NORMAL BREATHING PATTERN - Cardiovascular Exam Cardiovascular Exam: +S1, +S2 - GI/Abdominal Exam GI & Abdominal Exam: Normal Bowel Sounds Assessment and Plan (1) Anemia Assessment & Plan: iron deficiency anemia likely from chronic GI blood loss GI w/u in progress s/p PRBC transfusion on IV iron Status: Acute
--- NOTE | 2018-12-06 00:43 | HP ---
HISTORY OF PRESENT ILLNESS: The patient is a 68-year-old female with history of multiple medical problems including ischemic cardiomyopathy status post ICD placement, presented to my office on the day of admission with severe shortness of breath and pallor. The patient was referred to emergency room for evaluation and she was found to have hemoglobin of 5.9. The patient was started on blood transfusion and admitted for further management. The patient had previous history of GI bleeding and Dr. Davis is her interpretive naturalist. The patient was supposed to be on iron which she is not. The patient denied to have any acute bleeding, upper or lower, but she stated that the stool color has intermittently been changing into a darker color. The only antiplatelet she is taking is Plavix twice a week. Otherwise, she is not in any other antiplatelet medications. Other review of systems is positive for shortness of breath which has progressed recently to shortness of breath with mild exertion. ALLERGIES: NO KNOWN ALLERGIES. MEDICATIONS: Reviewed as per MAR and ordered. SOCIAL HISTORY: No history of smoking, EtOH or substance abuse. FAMILY HISTORY: Not contributory. PAST MEDICAL HISTORY: Hypertension, CHF, status post ICD placement, iron-deficiency anemia, bronchial asthma, and anxiety. PHYSICAL EXAMINATION: GENERAL: The patient is in bed, in mild shortness of breath at the time of this examination. VITAL SIGNS: Blood pressure 115/99, temperature 97.8, respiratory rate 14 and pulse 85. HEENT: Pale mucosa of the conjunctivae. NECK: Supple. No JVD. No carotid bruit. No lymph node. No thyromegaly. CHEST AND LUNGS: Bilateral symmetrical expansion. Good air exchange. No rales, no rhonchi. CARDIOVASCULAR SYSTEM: PMI not localized. S1, S2. No additional sounds. ABDOMEN: Normoactive bowel sounds. No tenderness. No organomegaly. No masses. EXTREMITIES: No cyanosis, no clubbing, no edema. CENTRAL NERVOUS SYSTEM: Alert, awake, oriented x2. No neurological deficit could be appreciated. ASSESSMENT: 1. Severe symptomatic anemia, likely secondary to gastrointestinal bleeding. 2. History of congestive heart failure with exacerbation of both systolic and diastolic secondary to the anemia. 3. Status post implantable cardioverter-defibrillator placement. 4. Type 2 diabetes mellitus. 5. Hypertension. 6. Bronchial asthma. PLAN: The patient is already transfused 2 units of packed RBCs. GI consult, hematology consult, and follow the recommendation, Protonix and iron supplement. [facility] [place] [facility] # [id number]
[2018-12-06] MEDS: Dextrose 5%/0.9% NS 1,000 ML IV SCH ×3 (01:38→12:30)
--- NOTE | 2018-12-06 06:33 | CARD ---
APPROVED REPORT Date of service: 12/04/2018 EKG Measurement Heart [id number] <Conclusion> Sinus rhythm with fusion complexes Low voltage QRS Inferior infarct, age undetermined ST & T wave abnormality, consider lateral ischemia Abnormal ECG
[2018-12-06] MEDS ORDERED: Bisacodyl 5mg EC Tab PO ONE (07:00)
[2018-12-06 07:34] LABS: BASO # 0.1 K/uL (0.0-0.2); BASO % 1.2 % (0.0-2.0); EOS # 0.1 K/uL (0.0-0.7); EOS % 1.5 % (0.0-4.0); HEMOGLOBIN 7.1 g/dL (11.0-16.0); LYMPH # 1.7 K/uL (1.0-4.3); LYMPH % 22.8 % (20.0-40.0); MEAN CELL VOLUME 81.2 fL (81.0-99.0); MEAN CORPUSCULAR HEMOGLOBIN 25.3 pg (27.0-31.0); MEAN CORPUSCULAR HGB CONC 31.2 g/dL (33.0-37.0); MEAN PLATELET VOLUME 9.1 fL (7.2-11.7); MONO # 0.6 K/uL (0.0-0.8); MONO % 7.7 % (0.0-10.0); NEUT % 66.8 % (50.0-75.0); NRBC % 0.1 % (0.0-2.0); RBC 2.78 Mil/uL (3.80-5.20); RED CELL DISTRIBUTION WIDTH 18.4 % (11.5-14.5); WHITE BLOOD COUNT 7.4 K/uL (4.8-10.8)
[2018-12-06 07:53] LABS: BLOOD UREA NITROGEN 9 mg/dL (7-17); CALCIUM 9.3 mg/dl (8.6-10.4); GFR NON-AFRICAN AMERICAN > 60
[2018-12-06] MEDS: (Novolin R) Insulin Human Regular 100 units/ml vial SC SCH ×4 (08:28→21:35)
[2018-12-06] MEDS: Vitamin B Complex/Vitamin C Tab PO SCH ×2 (09:15→14:42)
[2018-12-06] MEDS: Multivitamin Vitamin B Complex (Nephro-Vite) Tab PO SCH ×2 (09:16→14:41)
[2018-12-06] MEDS: Pantoprazole 40 mg EC Tab PO SCH ×2 (09:17→14:42)
[2018-12-06] MEDS ORDERED: Pneumococcal 23-Valent Vaccine IM ONE (10:00)
[2018-12-06] MEDS: Ferric Sodium Gluconat Complex 62.5 mg/5 ml Vial IVPB SCH (10:17)
[2018-12-06] MEDS: Sodium Chloride 0.9% 1,000 ML IV SCH (10:35)
[2018-12-06] MEDS ORDERED: Midazolam 2 MG/2 ML VIAL ONE (12:41)
[2018-12-06] MEDS ORDERED: Propofol 10 mg/ml Inj (20 ML) ONE (12:41)
[2018-12-06] MEDS ORDERED: Lactated Ringer's 500 ML IV ONE ×2 (12:44)
[2018-12-06] MEDS ORDERED: Etomidate 20 mg/10ml Inj IV ONE (12:49)
--- NOTE | 2018-12-06 13:23 | CP.PCM.PN ---
Subjective - Date & Time of Evaluation Date of Evaluation: 12/06/18 Time of Evaluation: 13:21 - Subjective Subjective: Patient seen and examined, no acute events overnight. She denies abdominal pain, nausea, vomiting, rectal bleeding. s/p colonoscopy today showing mild left sided diverticulosis, internal hemorrhoids without evidence of recent or active bleeding. Objective - Vital Signs/Intake and Output Vital Signs (last 24 hours): Temp Pulse Resp BP Pulse Ox 98.0 F 77 12 147/44 L 100 12/06/18 08:08 12/06/18 12:45 12/06/18 12:45 12/06/18 12:45 12/06/18 12:45 Intake and Output: 12/06/18 12/06/18 06:59 18:59 Intake Total 2600 Balance 2600 - Medications Medications: Current Medications Alprazolam (Xanax) 0.25 mg PO TID PRN PRN Reason: Anxiety Stop: 12/11/18 19:11 Last Admin: 12/04/18 21:27 Dose: 0.25 mg Amlodipine Besylate (Norvasc) 2.5 mg PO DAILY [facility] Last Admin: 12/06/18 10:15 Dose: 2.5 mg Escitalopram Oxalate (Lexapro) 10 mg PO DAILY [facility] Last Admin: 12/06/18 09:16 Dose: Not Given Ferric Sodium Gluconate Complex (Ferrlecit) 125 mg IVPB DAILY [facility] Stop: 12/13/18 10:01 Last Admin: 12/06/18 10:17 Dose: 125 mg Ferrous Sulfate (Feosol) 325 mg PO BID [facility] Last Admin: 12/06/18 09:16 Dose: Not Given Home Med (Cyclosporine [Restasis]) 0.05 ml OP DAILY [facility] Sodium Chloride (Sodium Chloride 0.9%) 1,000 mls @ 100 mls/hr IV .Q10H [facility] Last Admin: 12/06/18 10:35 Dose: Not Given Dextrose/Sodium Chloride (Dextrose 5%/0.9% Ns 1000 Ml) 1,000 mls @ 100 mls/hr IV .Q10H [facility] Last Admin: 12/06/18 05:40 Dose: 100 mls/hr Insulin Human Regular (Novolin R) 0 unit SC [facility]; Protocol Last Admin: 12/06/18 11:59 Dose: Not Given Montelukast Sodium (Singulair) 10 mg PO HS [facility] Last Admin: 12/05/18 21:47 Dose: 10 mg Nebivolol (Bystolic) 5 mg PO DAILY [facility] Last Admin: 12/06/18 10:13 Dose: 5 mg Pantoprazole Sodium (Protonix Ec Tab) 40 mg PO DAILY [facility] Last Admin: 12/06/18 09:17 Dose: Not Given Vitamin B Complex/Vit C/Folic Acid (Nephro-Ross) 1 tab PO DAILY [facility] Last Admin: 12/06/18 09:16 Dose: Not Given Vitamin B Complex/Vitamin C (Berocca) 1 tab PO DAILY [facility] Last Admin: 12/06/18 09:15 Dose: Not Given - Labs Labs: 12/06/18 07:27 12/06/18 07:27 PT 14.1 SECONDS (9.7-12.2) H 12/04/18 15:58 INR 1.3 12/04/18 15:58 APTT 27 SECONDS (21-34) 12/04/18 15:58 Assessment and Plan - Assessment and Plan (Free Text) Assessment: DM Obesity CHF s/p ICD Iron deficiency anemia - s/p push enteroscopy and colonoscopy without evidence of recent or active bleeding Plan: - Advance diet as tolerated - Continue to monitor H/H - Follow up hematology recommendations, consider bone marrow biopsy given chronic KALYAN of unclear etiology - If workup remains negative, would consider repeat capsule endoscopy as outpatient - No further planned GI intervention at this time, will sign off case. Please reconsult as necessary, thank you.
[2018-12-06] MEDS ORDERED: Lactated Ringer's 500 ML IV SCH (13:45)
[2018-12-06 15:14] VITALS: RESP 20
--- NOTE | 2018-12-06 19:09 | PN ---
DATE: 12/06/2018 SUBJECTIVE: The patient is seen today on 12/06/2018. She is not in any cardiopulmonary distress. The patient still has pallor and hemoglobin is 7.1. PHYSICAL EXAMINATION: VITAL SIGNS: Blood pressure 110/70, temperature 98.2, respiratory rate 20 and pulse is 78. HEENT: Pale conjunctivae. NECK: Supple. No JVD. No carotid bruit. No lymph node. No thyromegaly. CHEST AND LUNGS: Bilateral symmetrical expansion. Good air exchange. No rales, no rhonchi. CARDIOVASCULAR SYSTEM: PMI not localized. S1, S2. No additional sounds. ABDOMEN: Normoactive bowel sounds. No tenderness. No organomegaly. No masses. EXTREMITIES: No cyanosis, no clubbing, no edema. EMOTIONAL SUPPORT TEACHER: Alert, awake, oriented x3. No neurological deficit could be appreciated. ASSESSMENT: 1. Severe iron deficiency anemia, status post esophagogastroduodenoscopy and colonoscopy that did not show any active bleeding. 2. History of congestive heart failure both systolic and diastolic, status post implantable cardioverter-defibrillator placement. 3. Type 2 diabetes mellitus, hypertension. PLAN: Continue IV iron and follow Hematology recommendations and continue Protonix. Son Sadler MD
[2018-12-07 03:40] VITALS: TEMP 98.2
[2018-12-07 07:20] LABS: SQUAMOUS EPITHIAL 8 /hpf (0-5); URINE BACTERIA RARE (<OCC); URINE BILIRUBIN NEGATIVE (NEGATIVE); URINE BLOOD NEGATIVE (NEGATIVE); URINE CLARITY Hazy (Clear); URINE COLOR Amber (YELLOW); URINE GLUCOSE (UA) NORMAL (Normal); URINE LEUKOCYTE ESTERASE NEG Leu/uL (Negative); URINE PROTEIN 2+ mg/dL (NEGATIVE)
[2018-12-07] MEDS: (Novolin R) Insulin Human Regular 100 units/ml vial SC SCH ×2 (07:55→11:38)
[2018-12-07 08:07] LABS: BASO # 0.1 K/uL (0.0-0.2); BASO % 0.7 % (0.0-2.0); EOS # 0.2 K/uL (0.0-0.7); EOS % 1.9 % (0.0-4.0); HEMOGLOBIN 8.9 g/dL (11.0-16.0); LYMPH # 2.1 K/uL (1.0-4.3); LYMPH % 23.5 % (20.0-40.0); MEAN CELL VOLUME 82.7 fL (81.0-99.0); MEAN CORPUSCULAR HEMOGLOBIN 25.9 pg (27.0-31.0); MEAN CORPUSCULAR HGB CONC 31.3 g/dL (33.0-37.0); MEAN PLATELET VOLUME 9.4 fL (7.2-11.7); MONO # 0.7 K/uL (0.0-0.8); MONO % 7.9 % (0.0-10.0); NRBC % 0.1 % (0.0-2.0); RBC 3.44 Mil/uL (3.80-5.20); RED CELL DISTRIBUTION WIDTH 18.3 % (11.5-14.5); WHITE BLOOD COUNT 9.1 K/uL (4.8-10.8)
[2018-12-07] MEDS: Vitamin B Complex/Vitamin C Tab PO SCH (10:17)
[2018-12-07] MEDS: Pantoprazole 40 mg EC Tab PO SCH (10:17)
[2018-12-07] MEDS: Multivitamin Vitamin B Complex (Nephro-Vite) Tab PO SCH (10:17)
[2018-12-07] MEDS: Ferric Sodium Gluconat Complex 62.5 mg/5 ml Vial IVPB SCH (10:17)
--- NOTE | 2018-12-07 14:39 | PCM.HF ---
Heart Failure Core Measure Angiotensin II Receptor Víctor Prescribed: Yes
--- NOTE | 2018-12-07 14:50 | CP.PCM.CON ---
History of Present Illness - History of Present Illness History of Present Illness: CARDIOLOGY CONSULT Reason for consult: preop cardiac evaluation HPI: Pt is a 68 yo F with hx of CAD s/p 3v CABG on 08/20/12; ischemic CM that improved with biventricular pacing; RV lead fracture that required implant of new RV lead on 07/07/17 from R shoulder that was tunnelled to L shoulder to occluded L subclavian vein; chronic iron deficiency anemia; recurrent GI bleeds; who presents for exertional fatigue and found to have severe anemia with Hgb < 6. Cardiology was called for preop cardiac evaluation for upper EGD. She was deemed intermediate cardiac risk. She underwent EGD without any complications. Now called for cardiac evaluation. PMHx - CAD, prior LV dysfunction (now better), HTN, T2DM PSHx: CABGx3, Defibrillator, Cholecystectomy, tubal ligation FHx: Father - CAD/[place]; Mother - unknown cancer; Brother - CAD; Sister - Breast cancer Social: Former smoker (>20 years ago), denies EtOH or illicit drug use Endo: Colon -09/2017 - Appendiceal orifice polyp with focal adenomatous changes EGD/Colon - 06/2017 - H pylori positive gastritis, 3 tubular adenomas Enteroscopy 12/20 - duodenal ulcer s/p cautery 2017 - video capsule endoscopy 12pt ROS completed and negative except for above. All: noted Meds: reviewed Past Patient History - Infectious Disease Hx of Infectious Diseases: None - Past Medical History & Family History Past Medical History?: Yes - Past Social History Smoking Status: Former Smoker - CARDIAC Hx Cardiac Disorders: Yes Hx Cardia Arrhythmia: Yes Hx Congestive Heart Failure: Yes Hx Hypercholesterolemia: Yes Hx Hypertension: Yes Hx Internal Defibrillator: Yes - PULMONARY Hx Asthma: Yes Hx Sleep Apnea: No - NEUROLOGICAL Hx Neurological Disorder: No Hx Seizures: No Hx Transient Ischemic Attacks (TIA): No - HEENT Hx HEENT Problems: Yes Hx Cataracts: Yes (RIGHT EYE) - RENAL Hx Chronic Kidney Disease: No - ENDOCRINE/METABOLIC Hx Endocrine Disorders: Yes Hx Diabetes Mellitus Type 1: Yes - HEMATOLOGICAL/ONCOLOGICAL Hx Anemia: Yes Hx Blood Transfusions: Yes - INTEGUMENTARY Hx Dermatological Problems: No - MUSCULOSKELETAL/RHEUMATOLOGICAL Hx Arthritis: Yes (KNEES; LEGS) Hx Falls: No Hx Fractures: No - GASTROINTESTINAL Hx Gastritis: Yes - GENITOURINARY/GYNECOLOGICAL Hx Genitourinary Disorders: No - PSYCHIATRIC Hx Anxiety: Yes Hx Depression: Yes Hx Substance Use: No - SURGICAL HISTORY Hx Cholecystectomy: Yes Hx Coronary Artery Bypass Graft: Yes Hx Coronary Stent: Yes (3) Hx Hysterectomy: Yes - ANESTHESIA Hx Anesthesia: Yes Hx Anesthesia Reactions: No Hx Malignant Hyperthermia: No Meds Allergies/Adverse Reactions: Allergies Allergy/AdvReac Type Severity Reaction Status Date / Time No Known Allergies Allergy Verified 12/04/18 15:18 - Medications Medications: Current Medications Alprazolam (Xanax) 0.25 mg PO TID PRN PRN Reason: Anxiety Stop: 12/11/18 19:11 Last Admin: 12/06/18 21:35 Dose: 0.25 mg Amlodipine Besylate (Norvasc) 2.5 mg PO DAILY [facility] Last Admin: 12/07/18 10:16 Dose: 2.5 mg Artificial Tears (Artificial Tears) 0 ml OU DAILY PRN PRN Reason: DRY EYES Escitalopram Oxalate (Lexapro) 10 mg PO DAILY [facility] Last Admin: 12/07/18 10:17 Dose: 10 mg Ferric Sodium Gluconate Complex (Ferrlecit) 125 mg IVPB DAILY [facility] Stop: 12/13/18 10:01 Last Admin: 12/07/18 10:17 Dose: 125 mg Ferrous Sulfate (Feosol) 325 mg PO BID [facility] Last Admin: 12/06/18 09:16 Dose: Not Given Insulin Human Regular (Novolin R) 0 unit [facility]; Protocol Last Admin: 12/07/18 11:38 Dose: 3 unit Montelukast Sodium (Singulair) 10 mg PO HS [facility] Last Admin: 12/06/18 21:35 Dose: 10 mg Nebivolol (Bystolic) 5 mg PO DAILY [facility] Last Admin: 12/07/18 10:17 Dose: 5 mg Pantoprazole Sodium (Protonix Ec Tab) 40 mg PO DAILY [facility] Last Admin: 12/07/18 10:17 Dose: 40 mg Vitamin B Complex/Vit C/Folic Acid (Nephro-Ross) 1 tab PO DAILY [facility] Last Admin: 12/07/18 10:17 Dose: 1 tab Vitamin B Complex/Vitamin C (Berocca) 1 tab PO DAILY [facility] Last Admin: 12/07/18 10:17 Dose: 1 tab Physical Exam - Constitutional Appears: Well - Head Exam Head Exam: ATRAUMATIC - ENT Exam ENT Exam: Mucous Membranes Moist - Neck Exam Neck exam: Positive for: Normal Inspection - Respiratory Exam Respiratory Exam: Clear to Auscultation Bilateral - Cardiovascular Exam Cardiovascular Exam: REGULAR RHYTHM, +S1, +S2. absent: Systolic Murmur - GI/Abdominal Exam GI & Abdominal Exam: Soft - Extremities Exam Extremities exam: Negative for: pedal edema - Neurological Exam Neurological exam: Oriented x3 Results - Vital Signs Recent Vital Signs: Last Vital Signs Temp 98.2 F 12/07/18 07:00 Pulse 73 12/07/18 07:00 Resp 20 12/07/18 07:00 BP 130/84 12/07/18 07:00 Pulse Ox 98 12/07/18 07:00 - Labs Result Diagrams: 12/07/18 07:52 12/06/18 07:27 Labs: Laboratory Results - last 24 hr 12/04/18 12/06/18 12/06/18 15:58 16:13 20:47 WBC RBC Hgb Hct MCV MCH MCHC RDW Plt Count MPV Neut % (Auto) Lymph % (Auto) Butts % (Auto) Eos % (Auto) Baso % (Auto) Neut # (Auto) Lymph # (Auto) Butts # (Auto) Eos # (Auto) Baso # (Auto) POC Glucose (mg/dL) 138 H 152 H Urine Color Urine Clarity Urine pH Ur Specific Hasty Urine Protein Urine Glucose (UA) Urine Ketones Urine Blood Urine Nitrate Urine Bilirubin Urine Urobilinogen Ur Leukocyte Esterase Urine WBC (Auto) Urine RBC (Auto) Ur Squamous Epith Cells Urine Bacteria Hyaline Casts Blood Type O POSITIVE Antibody Screen Negative 12/07/18 12/07/18 12/07/18 07:03 07:06 07:52 WBC 9.1 RBC 3.44 L Hgb 8.9 L Hct 28.5 L MCV 82.7 MCH 25.9 L MCHC 31.3 L RDW 18.3 H Plt Count 137 MPV 9.4 Neut % (Auto) 66.0 Lymph % (Auto) 23.5 Butts % (Auto) 7.9 Eos % (Auto) 1.9 Baso % (Auto) 0.7 Neut # (Auto) 6.0 Lymph # (Auto) 2.1 Butts # (Auto) 0.7 Eos # (Auto) 0.2 Baso # (Auto) 0.1 POC Glucose (mg/dL) 160 H Urine Color Kendra Urine Clarity Hazy Urine pH 5.0 Ur Specific Hasty 1.019 Urine Protein 2+ H Urine Glucose (UA) Normal Urine Ketones Trace Urine Blood Negative Urine Nitrate Negative Urine Bilirubin Negative Urine Urobilinogen 2.0 H Ur Leukocyte Esterase Neg Urine WBC (Auto) 4 Urine RBC (Auto) 1 Ur Squamous Epith Cells 8 H Urine Bacteria Rare Hyaline Casts 3-5 H Blood Type Antibody Screen 12/07/18 11:10 WBC RBC Hgb Hct MCV MCH MCHC RDW Plt Count MPV Neut % (Auto) Lymph % (Auto) Butts % (Auto) Eos % (Auto) Baso % (Auto) Neut # (Auto) Lymph # (Auto) Butts # (Auto) Eos # (Auto) Baso # (Auto) POC Glucose (mg/dL) 219 H Urine Color Urine Clarity Urine pH Ur Specific Hasty Urine Protein Urine Glucose (UA) Urine Ketones Urine Blood Urine Nitrate Urine Bilirubin Urine Urobilinogen Ur Leukocyte Esterase Urine WBC (Auto) Urine RBC (Auto) Ur Squamous Epith Cells Urine Bacteria Hyaline Casts Blood Type Antibody Screen - Impressions Impression: EKG: SR, Vpacing Assessment & Plan - Assessment and Plan (Free Text) Assessment: 1. Preop cardiac evaluation for endoscopy for severe anemia -- Deemed i ntermediate cardiac risk. S/p EGD, tolerated well without any cardiac issues 2. CAD s/p prior 3v CABG 08/20/12 3. Prior LV dysfunction that normalized with biventricular pacing 4. Biventricular ICD implant on 12/30/04 with new RV lead implant on 07/07/17 due to fracture of old RV lead 5. Severe anemia -- no GI bleed identified on EGD Plan: No further cardiac workup advised Cont home cardiac meds Outpt cardiac follow up with Dr. Stauffer in 2 weeks
[2018-12-07 15:39] VITALS: BP 127/63; PULSE 75; O2SAT 96
--- NOTE | 2018-12-07 17:40 | CP.PCM.PN ---
Objective - Vital Signs/Intake and Output Vital Signs (last 24 hours): Temp Pulse Resp BP Pulse Ox 98.2 F 75 20 127/63 96 12/07/18 15:00 12/07/18 15:00 12/07/18 15:00 12/07/18 15:00 12/07/18 15:00 Intake and Output: 12/07/18 12/07/18 06:59 18:59 Intake Total 1904 300 Balance 1904 300 - Labs Labs: 12/07/18 07:52 12/06/18 07:27 PT 14.1 SECONDS (9.7-12.2) H 12/04/18 15:58 INR 1.3 12/04/18 15:58 APTT 27 SECONDS (21-34) 12/04/18 15:58 Assessment and Plan - Assessment and Plan (Free Text) Assessment: 68 year old female admitted with symptomatic anemia
[2018-12-07] MEDS ORDERED: Aritificial Tears (15ml) OU PRN (18:00)
--- NOTE | 2018-12-08 08:59 | DS ---
REASON FOR ADMISSION: This is a 68-year-old female with history of multiple admissions for GI bleeding and anemia, was admitted for symptomatic severe anemia. COURSE OF HOSPITALIZATION: The patient was admitted to medical telemetry floor, and hemoglobin was found to be 5.9, hematocrit 19.0. The patient had 2 units of packed RBCs transfused. The patient had a GI consult by Dr. Davis, and she had upper endoscopy and colonoscopy that did not show any evidence of bleeding. The patient had also hematology consult done by Dr. Moreno Alegria, and the patient was started on IV iron. Hemoglobin went up to 8.9, hematocrit 28.5. The patient is being discharged asymptomatic and started on p.o. iron and vitamin C to follow with cook vacuum kettle, Dr. Alegria as well as chain builder, Dr. Davis and primary care physician. FINAL DIAGNOSES: 1. Severe symptomatic iron-deficiency anemia with no obvious source of chronic blood loss even after esophagogastroduodenoscopy and colonoscopy. 2. Hypertension. 3. Chronic congestive heart failure, systolic and diastolic, status post implantable cardioverter-defibrillator placement. 4. Type 2 diabetes mellitus. Adán MD Doroteo
== END 2018-12-07 17:06 | disposition home or self-care (01) | DRG 812 ==
LOC: C.ER 15:07 → UNDOADMOB 16:28 → C.3T 16:28 → INTOOBSV 12-06 14:21 → OBSVTOIN 12-06 14:21 → C.3T 12-06 14:21
PROVIDERS: ADMIT Internal Medicine; ATTEND Internal Medicine
PROC: 0DB68ZX Excision of Stomach, Via Natural or Artificial Opening Endoscopic, Diagnostic (ICD-10-PCS; principal; 2018-12-05 12:59)
PROC: 0DJD8ZZ Inspection of Lower Intestinal Tract, Via Natural or Artificial Opening Endoscopic (ICD-10-PCS; 2018-12-06)
DX: D50.9 Iron deficiency anemia, unspecified (principal); I50.42 Chronic combined systolic (congestive) and diastolic (congestive) heart failure; I11.0 Hypertensive heart disease with heart failure; I25.10 Atherosclerotic heart disease of native coronary artery without angina pectoris; I25.5 Ischemic cardiomyopathy; I27.20 Pulmonary hypertension, unspecified; E66.9 Obesity, unspecified; Z79.4 Long term (current) use of insulin; Z87.891 Personal history of nicotine dependence; K29.70 Gastritis, unspecified, without bleeding; Z95.1 Presence of aortocoronary bypass graft; Z95.5 Presence of coronary angioplasty implant and graft; Z95.810 Presence of automatic (implantable) cardiac defibrillator; J45.909 Unspecified asthma, uncomplicated; E10.9 Type 1 diabetes mellitus without complications; Z68.37 Body mass index [BMI] 37.0-37.9, adult; K57.90 Diverticulosis of intestine, part unspecified, without perforation or abscess without bleeding; K64.8 Other hemorrhoids